=== PATIENT | female | born 1940 | race Caucasian/White ===

== ENCOUNTER 2019-07-09 14:26 | Inpatient (IN) | payer MEDICARE, OTHER ==
[~2019-07-09] VITALS: Ht 157.5 cm; Wt 67.7 kg
[2019-07-09] MEDS ORDERED: methylPREDNISolone SOD SUCC 125 MG/2 ML VIAL IV ONE (14:45)
[2019-07-09] MEDS ORDERED: IV NORMAL SALINE 500 ML BAG IV ONE (14:45)
--- NOTE | 2019-07-09 15:11 | NUR ---
Pt BIB [facility], reports that pt fell off a chair onto left shoulder. Pt c/o extreme left shoulder and upper arm pain, distal PMS intact. Although pt seems to have a mostly upward and left gaze (occasionally moves eyes) pt is A&Ox4. Pt having dyspnea, fingers and toes are cold so obtaining SPO2. Pt denies CP, dizziness, n/v, moderate distress noted.
--- NOTE | 2019-07-09 15:42 | NUR ---
Pt is hard stick aware.
[2019-07-09] MEDS ORDERED: HYDROCODONE/APAP 5-325MG TABLET PO ONE (16:00)
[2019-07-09] MEDS ORDERED: HYDROCODONE/APAP 5-325MG TABLET ONE (16:01)
[2019-07-09 16:05] LABS: ABG BASE EXCESS -3.4 mmol/L; ABG HCO3 22.8 mmol/L; ABG PCO2 45.3 mmHg (35.0-45.0); ABG PH 7.319 (7.350-7.450); ABG PO2 68.3 mmHg (75.0-100.0); ABG SITE RIGHT BRACHIAL; ABG TOTAL HEMOGLOBIN 12.4 G/dL (12.0-16.0); COHb 1.5 % (0.5-1.5); MetHb 0.1 % (0.0-1.5); O2Hb 89.8 % (94.0-97.0); VENT MODE Nasal Cannula
[2019-07-09] MEDS ORDERED: FENTANYL CITRATE 100 MCG/2 ML AMPUL IV ONE (16:15)
[2019-07-09] MEDS ORDERED: FENTANYL CITRATE 100 MCG/2 ML AMPUL ONE (16:29)
[2019-07-09] MEDS ORDERED: methylPREDNISolone SOD SUCC 125 MG/2 ML VIAL ONE (16:29)
--- NOTE | 2019-07-09 16:40 | NUR ---
PICC Nurse placed new midline IV in right upper arm. Osvaldo blood and sent to lab. Line patent. Continued IV infusion.
[2019-07-09 16:53] LABS: BASOPHILS % (AUTO) 0.1 % (0.0-2.0); HEMATOCRIT 34.9 % (31.2-41.9); HEMOGLOBIN 11.2 g/dL (10.9-14.3); LYMPHOCYTES # (AUTO) 0.5 K/uL (20.0-40.0); LYMPHOCYTES % (AUTO) 3.7 % (20.5-51.5); MEAN CORPUSCULAR HEMOGLOBIN 28.5 uug (24.7-32.8); MEAN CORPUSCULAR HGB CONC 32 g/dL (32.3-35.6); MEAN CORPUSCULAR VOLUME 88.6 fL (75.5-95.3); MONOCYTES # (AUTO) 0.8 K/uL (2.0-10.0); MONOCYTES % (AUTO) 5.1 % (0.0-11.0); NEUTROPHILS # (AUTO) 13.5 K/uL (1.8-8.9); NEUTROPHILS % (AUTO) 91.1 % (38.5-71.5); PLATELET COUNT (AUTO) 178 K/uL (179-408); RED BLOOD CELL COUNT(AUTO) 3.93 MIL/uL (3.63-4.92); WHITE BLOOD COUNT (AUTO) 14.9 K/uL (3.8-11.8)
[2019-07-09] MEDS ORDERED: CEFTRIAXONE 1 G in IV DEXTROSE 5% 50 ML IV ONE (17:15)
[2019-07-09 17:22] LABS: CARBON DIOXIDE 30 mmol/L (21-32); CHLORIDE 103 mmol/L (98-107); CREATININE 1.7 mg/dL (0.6-1.3); GLUCOSE 158 mg/dL (74-106); POTASSIUM 3.9 mmol/L (3.5-5.1); UREA NITROGEN, BLOOD 44 mg/dL (7-20)
[2019-07-09 17:23] LABS: ALANINE AMINOTRANSFERASE 24 U/L (14-59); ALKALINE PHOSPHATASE 95 U/L (50-136); ASPARTATE AMINOTRANSFERASE 38 U/L (15-37); BILIRUBIN,DIRECT 0.1 mg/dL (0.0-0.2); BILIRUBIN,TOTAL 0.3 mg/dL (0.1-1.0)
[2019-07-09] MEDS ORDERED: CEFTRIAXONE /D5W 50ML IVPB **ER PYXIS IV ONE ×2 (17:29→21:25)
[2019-07-09] MEDS ORDERED: ASPIRIN EC 325 MG TABLET.DR PO SCH (17:30)
--- NOTE | 2019-07-09 17:46 | NUR ---
DR. DIAZ TALKING TO ER MD OVER THE PHONE FOR CARDIOLOGY CONSULT.
--- NOTE | 2019-07-09 19:10 | NUR ---
PT FOR TRANSPORT TO [facility] RM 314 FR HOME BIB RESCUE HAND OFF AND SBAR GIVEN TO RN (CARA) DX L HUMERAL HEAD FX AND NSTEMI UNDER KERZUMA
[2019-07-09] MEDS ORDERED: IV 1/2NS 1000 ML 1,000 ML IV PRN (19:22)
[2019-07-09] MEDS: CEFTRIAXONE 1 G in IV DEXTROSE 5% 50 ML IV SCH ×2 (19:30→21:40)
[2019-07-09] MEDS ORDERED: MAGNESIUM HYDROXIDE 30 ML LIQUID UDC PO PRN (19:30)
--- NOTE | 2019-07-09 19:30 | NUR ---
[facility]. PATIENT ALERT AND AWAKE, ANXIOUS AND RESTLESS , REQUESTING TO GO OUT FOR SMOKING. EXPLAINED THE PATIENT THAT SMOKING IS NOT ALLOWED IN THE HOSPITAL . PATIENT USING O2 @ 3LPM WITH SAT 92% . BODY CHECK DONE. DISCOLORATION NOTED ON THE LEFT UPPER ARM . PICTURE TAKEN. KEPT THE PATIENT CLEAN AND COMFORTABLE. SAFETY MEASURES OBSERVED. WILL CONTINUE TO MONITOR
[2019-07-09 20:00] VITALS: BP 130/68
[2019-07-09] MEDS: QUETIAPINE FUMARATE 100 MG TABLET PO SCH (21:09)
[2019-07-09] MEDS: ATORVASTATIN 40 MG TABLET PO SCH (21:10)
[2019-07-09] MEDS: HYDROCODONE/APAP 5-325MG TABLET PO PRN (21:10)
--- NOTE | 2019-07-09 21:50 | NUR ---
ROCEPHIN WAS ORDERED FOR 1930 . IT WAS NOT ADMINISTERED IT WAS GIVEN AT ED. NOTIFIED
--- NOTE | 2019-07-09 22:00 | NUR ---
PATIENT SLEEPING INTERMITTENTLY NO DISCOMFORT NOTED AT THIS TIME . WILL CONTINUE TO MONITOR
[2019-07-09] MEDS: IV NS 1000 ML 1,000 ML IV PRN (23:56)
[2019-07-10] VITALS (17 sets, daily range): BP systolic 78–159; BP diastolic 37–105
[2019-07-10] MEDS: methylPREDNISolone SOD SUCC 40 MG/ML VIAL IV SCH ×4 (00:09→18:56)
[2019-07-10 06:47] LABS: CHLORIDE 107 mmol/L (98-107); GLUCOSE 138 mg/dL (74-106); MAGNESIUM 2.1 mg/dL (1.8-2.4); PHOSPHOROUS 4.6 mg/dL (2.5-4.9); POTASSIUM 4.3 mmol/L (3.5-5.1); UREA NITROGEN, BLOOD 43 mg/dL (7-18)
--- NOTE | 2019-07-10 07:07 | NUR ---
PATIENT INTERMITTENTLY SLEEPING. SR ON THE MONITOR . C/O PAIN ON MOVING . LEFT SHOULDER AREA HAS DISCOLORATION AND SWELLING. USING O2 @ 3LPM .GENTLE CARE PROVIDED. IV FLUID INFUSING ORDERED KEPT CLEAN AND DRY .
[2019-07-10 07:10] LABS: BASOPHILS # (AUTO) 0.1 K/uL (0.0-8.0); BASOPHILS % (AUTO) 0.4 % (0.0-2.0); HEMATOCRIT 28.6 % (31.2-41.9); HEMOGLOBIN 9.6 g/dL (10.9-14.3); LYMPHOCYTES # (AUTO) 0.5 K/uL (20.0-40.0); LYMPHOCYTES % (AUTO) 3.9 % (20.5-51.5); MEAN CORPUSCULAR HEMOGLOBIN 29.4 uug (24.7-32.8); MEAN CORPUSCULAR HGB CONC 33 g/dL (32.3-35.6); MONOCYTES # (AUTO) 0.2 K/uL (2.0-10.0); MONOCYTES % (AUTO) 1.7 % (0.0-11.0); NEUTROPHILS # (AUTO) 13.2 K/uL (1.8-8.9); PLATELET COUNT (AUTO) 138 K/uL (179-408); RED BLOOD CELL COUNT(AUTO) 3.26 MIL/uL (3.63-4.92)
--- NOTE | 2019-07-10 07:10 | NUR ---
received patient from night patrol inspector very lethargic with on and off restlessness, very confused, moaning. sr on monitor. o2 sat at 72-82 on 2L nc. placed on 4L but o2 sat remains low. Dr Valverde in with orders see notes
[2019-07-10 08:07] LABS: CARBON DIOXIDE 24 mmol/L (21-32)
[2019-07-10 08:49] LABS: ABG BASE EXCESS -3.5 mmol/L; ABG HCO3 23.6 mmol/L; ABG PCO2 52.8 mmHg (35.0-45.0); ABG PH 7.269 (7.350-7.450); ABG PO2 100.9 mmHg (75.0-100.0); ABG SITE LEFT RADIAL; ABG TOTAL HEMOGLOBIN 9.9 G/dL (12.0-16.0); COHb 1.2 % (0.5-1.5); MetHb 0.3 % (0.0-1.5); O2Hb 95.2 % (94.0-97.0)
[2019-07-10] MEDS: DULOXETINE 30 MG CAPSULE.DR PO SCH (09:00)
[2019-07-10] MEDS ORDERED: METOPROLOL SUCCINATE XL 50 MG TAB.SR.24H PO SCH (09:00)
[2019-07-10] MEDS: VENLAFAXINE 25 MG TABLET PO SCH (09:00)
[2019-07-10] MEDS ORDERED: AMLODIPINE 10 MG TABLET PO SCH (09:00)
[2019-07-10] MEDS: DIVALPROEX 250 MG TABLET.DR PO SCH ×2 (09:00→18:55)
[2019-07-10] MEDS ORDERED: PANTOPRAZOLE SODIUM 40 MG TABLET.DR PO SCH (09:00)
[2019-07-10] MEDS: CLOPIDOGREL 75 MG TABLET PO SCH (09:00)
[2019-07-10 09:02] LABS: THYROID STIMULATING HORMONE 0.685 mIU/mL (0.358-3.740)
[2019-07-10 09:15] LABS: CHOLESTEROL 130 mg/dL (<200); CREATININE 1.8 mg/dL (0.6-1.3); HDL CHOLESTEROL 45 mg/dL (40-60); TRIGLYCERIDES 80 MG/DL (30-150)
--- NOTE | 2019-07-10 09:30 | NUR ---
SEEN BY DR HAYS AND SAID TO TRANSFER PATIENT TO CCU FOR FURTHER RESPIRATORY MANAGEMENT
[2019-07-10] MEDS: PANTOPRAZOLE SODIUM 40 MG VIAL IV SCH (09:44)
--- NOTE | 2019-07-10 09:47 | NUR ---
po meds for 0900 not given patient too lethargic. dr holland aware
[2019-07-10] MEDS: IV NS 1000 ML 1,000 ML IV PRN ×2 (09:52→19:40)
[2019-07-10] MEDS ORDERED: ASPIRIN EC 81 MG TABLET.DR PO SCH (10:00)
--- NOTE | 2019-07-10 10:15 | NUR ---
transferred to icu for higher level of care. report given to ccu staff
--- NOTE | 2019-07-10 10:15 | NUR ---
RECIEVED PT FROM 3RD FLOOR VIA BED, TRANSFERRED TO ICU FOR LOW SATURATION AND HYPOTENSIN. PT ON 6L MASK, AWAKE AND ORIENTED TO NAME AND PLACE BUT FORGETFUL. O2SAT IS 97% NO APPARENT C/O SOB. HR IS SR. AFEBRILE. PT HAS A BIG BRUISE ON HER LEFT UPPER ARM FROM THE PREVIOUS FALL AT THE [facility] WHERE SHE LIVES. PT GRIMACES WITH SLIGHT MOVEMENT OF THE LEFT ARM. APPLIED THE ARM SLING FOR IMMOBILIZATION OF THE AFFECTED INJURY.
--- NOTE | 2019-07-10 10:40 | NUR ---
[facility] STAFF ETHAN NOTIFIED OF PATIENT TRANSFER TO CCU. AWAITING DR SINGH FOR ORTHO CONSULT
[2019-07-10] MEDS: HYDROCODONE/APAP 5-325MG TABLET PO PRN ×2 (11:30→20:17)
[2019-07-10] MEDS: ALBUTEROL SULFATE 2.5 MG/ 0.5 ML NEBU NEB SCH ×5 (11:30→23:04)
--- NOTE | 2019-07-10 11:30 | NUR ---
MAIN IVF IS NS INFUSING AT 100ML/HR VIA THE MIDLINE DONNA. PT IS INCONTINENT OF URINE AND IS ON DIAPER. SKIN IS INTACT. NO SKIN BREAKDOWN ON HER COCCYX AREA.
[2019-07-10] MEDS: IPRATROPIUM BROMIDE 0.5 MG/2.5 ML NEBU NEB SCH ×4 (12:02→23:04)
[2019-07-10] MEDS ORDERED: NOREPINEPHRINE BITARTRATE 16 MG in IV DEXTROSE 5% 500 ML IV PRN (14:45)
--- NOTE | 2019-07-10 15:30 | NUR ---
PT'S BP PERSISTENTLY LOWE 80'S. PT IS TALKING ASD AYMPTOMATIC. NOTIFIED DR QUISPE AND ORDERED LEVOPHED DRIP DOUBLE CONCENTRATION TO KEEP SBP ABOVE 90.
[2019-07-10] MEDS: QUETIAPINE FUMARATE 100 MG TABLET PO SCH (19:58)
[2019-07-10] MEDS: ATORVASTATIN 40 MG TABLET PO SCH (20:01)
[2019-07-10] MEDS: ZOLPIDEM 5 MG TABLET PO PRN (20:18)
[2019-07-10] MEDS ORDERED: CEFTRIAXONE 1 G in IV DEXTROSE 5% 50 ML IV SCH (21:00)
[2019-07-11] VITALS (92 sets, daily range): BP systolic 68–140; BP diastolic 41–100
[2019-07-11] MEDS: methylPREDNISolone SOD SUCC 40 MG/ML VIAL IV SCH ×3 (00:13→17:36)
[2019-07-11] MEDS: ALBUTEROL SULFATE 2.5 MG/ 0.5 ML NEBU NEB SCH ×6 (02:19→22:40)
[2019-07-11] MEDS: IPRATROPIUM BROMIDE 0.5 MG/2.5 ML NEBU NEB SCH ×6 (02:19→22:40)
[2019-07-11] MEDS: IV NS 1000 ML 1,000 ML IV PRN ×2 (05:20→15:38)
[2019-07-11 05:57] LABS: HEMATOCRIT 29.9 % (31.2-41.9); HEMOGLOBIN 9.7 g/dL (10.9-14.3); LYMPHOCYTES # (AUTO) 0.3 K/uL (20.0-40.0); LYMPHOCYTES % (AUTO) 1.6 % (20.5-51.5); MEAN CORPUSCULAR HGB CONC 33 g/dL (32.3-35.6); MEAN CORPUSCULAR VOLUME 89.1 fL (75.5-95.3); MONOCYTES # (AUTO) 0.6 K/uL (2.0-10.0); MONOCYTES % (AUTO) 2.9 % (0.0-11.0); NEUTROPHILS % (AUTO) 95.5 % (38.5-71.5); PLATELET COUNT (AUTO) 176 K/uL (179-408); RED BLOOD CELL COUNT(AUTO) 3.35 MIL/uL (3.63-4.92); WHITE BLOOD COUNT (AUTO) 19.9 K/uL (3.8-11.8)
[2019-07-11 06:13] LABS: CREATININE 1.3 mg/dL (0.6-1.3); MAGNESIUM 2.1 mg/dL (1.8-2.4); PHOSPHOROUS 2.6 mg/dL (2.5-4.9); POTASSIUM 3.6 mmol/L (3.5-5.1)
[2019-07-11] MEDS: LORAZEPAM 2 MG/1 ML VIAL IV PRN ×2 (08:00→14:16)
[2019-07-11 08:52] LABS: ABG BASE EXCESS -4.5 mmol/L; ABG HCO3 19.9 mmol/L; ABG PCO2 33.7 mmHg (35.0-45.0); ABG PH 7.388 (7.350-7.450); ABG PO2 57.6 mmHg (75.0-100.0); ABG SITE RIGHT RADIAL; ABG TOTAL HEMOGLOBIN 10.2 G/dL (12.0-16.0); MetHb 0.3 % (0.0-1.5); O2Hb 87.3 % (94.0-97.0); VENT MODE Nasal Cannula
[2019-07-11] MEDS: PANTOPRAZOLE SODIUM 40 MG VIAL IV SCH (09:14)
[2019-07-11] MEDS: CLOPIDOGREL 75 MG TABLET PO SCH (09:14)
[2019-07-11] MEDS: VENLAFAXINE 25 MG TABLET PO SCH (09:14)
[2019-07-11] MEDS: DIVALPROEX 250 MG TABLET.DR PO SCH ×2 (09:14→17:06)
[2019-07-11] MEDS: DULOXETINE 30 MG CAPSULE.DR PO SCH (09:14)
--- NOTE | 2019-07-11 10:00 | NUR ---
DR HAYS IN THE UNIT, FULL REPORT GIVEN, PATIENT ASSESSED WITH NO NEW ORDERS RECEIVED.
--- NOTE | 2019-07-11 11:19 | NUR ---
DR TOMPKINS IN THE UNIT, FULL REPORT GIVEN NO NEW ORDERS GIVEN.
--- NOTE | 2019-07-11 12:30 | NUR ---
ID services, N.P in the unit to see and examine patient.
[2019-07-11] MEDS ORDERED: MEROPENEM 1 G in IV NORMAL SALINE 100 ML IV SCH (15:45)
[2019-07-11 16:05] LABS: *BILIRUBIN,URIN NEGATIVE (NEGATIVE); *BLOOD, URINE 1+ (NEGATIVE); *CLARITY,URINE CLEAR (CLEAR); *COLOR,URINE YELLOW (YELLOW); *KETONES,URINE NEGATIVE (NEGATIVE); *UROBILINOGEN,URINE 0.2 E.U./dl (NORMAL); LEUKOCYTE ESTERASE ,URINE NEGATIVE (NEGATIVE); NITRITE, URINE NEGATIVE (NEGATIVE); PH,URINE 6.5 (5.0-8.0); UGLUCOSE TRACE (NEGATIVE)
[2019-07-11 16:24] LABS: BACTERIA,URINE NONE SEEN /HPF (NONE SEEN); SQUAMOUS EPITHELIAL CELL,UR FEW /HPF (NONE SEEN)
[2019-07-11 16:29] LABS: *CREATININE,URINE 20.9 mg/dL (30-125)
[2019-07-11 16:46] LABS: *URINE TOTAL PROTEIN RANDOM < 6.0 mg/dL (<150/24HR)
--- NOTE | 2019-07-11 16:58 | NUR ---
CLINICAL PHARMACY NOTE: VANCOMYCIN PHARMACY TO DOSE Subjective: To start vancomycin tin this 78 y/o female for per ID recommendation (pt with fevers, increased wbc) Objective: weight 69kg height 157cm BUN/SCr 36/1.3 wbc 19.9 temp 100.9 Assessment/Plan Although renal function is improving, may not be stable yet, therefore will dose by level for now. 1gm x1 vanco giventoday at 1730. Next random pending tomorrow with am labs. Will check when available and re-dose as needed. Will also consider regimen if renal function stable. Will follow
[2019-07-11] MEDS ORDERED: VANCOMYCIN IV 1,000 MG in IV DEXTROSE 5% 250 ML IV ONE (17:30)
[2019-07-11] MEDS: MEROPENEM 1 G in IV NORMAL SALINE 100 ML IV SCH (17:31)
--- NOTE | 2019-07-11 20:00 | NUR ---
Report received. Patient sleeping, easily arouses to name or voice but easily gets agitated. Hitting nurse with R hand; mittens on for safety. Oriented to name only, confused. O2 by mask sat above 94%. On Levophed drip via DONNA midline. Assessment done; see flow sheet for complete data. Addendum: 07/12/19 at 0049 by KATHERINE CLAROS RN Amended: Links added. Addendum: 07/12/19 at 0053 by KATHERINE CLAROS RN Amended: Links added. Addendum: 07/12/19 at 0053 by KATHERINE CLAROS RN Amended: Links added. Addendum: 07/12/19 at 0053 by KATHERINE CLAROS RN Amended: Links added. Addendum: 07/12/19 at 0054 by KATHERINE CLAROS RN Amended: Links added.
[2019-07-11] MEDS: QUETIAPINE FUMARATE 100 MG TABLET PO SCH (20:40)
[2019-07-11] MEDS: ATORVASTATIN 40 MG TABLET PO SCH (20:40)
--- NOTE | 2019-07-11 20:45 | NUR ---
PO meds given with lots of distractions and convincing. Patient uncooperative. Refused dinner. C/o pain; medicated. Took meds without swallowing difficulty. Addendum: 07/12/19 at 0053 by KATHERINE CLAROS RN Amended: Links added. Addendum: 07/12/19 at 0053 by KATHERINE CLAROS RN Amended: Links added. Addendum: 07/12/19 at 0053 by KATHERINE TAECHARATKIJ RN Amended: Links added. Addendum: 07/12/19 at 0054 by KATHERINE CLAROS RN Amended: Links added.
[2019-07-11] MEDS: HYDROCODONE/APAP 5-325MG TABLET PO PRN (20:59)
--- NOTE | 2019-07-11 21:00 | NUR ---
Kody from [facility] called inquiring about patient's condition. Advised appropriately. Levophed drip titrated; see IV spread sheet for rates/dosages. Addendum: 07/12/19 at 0055 by KATHERINE CLAROS RN Amended: Links added. Addendum: 07/12/19 at 0057 by KATHERINE CLAROS RN Amended: Links added.
--- NOTE | 2019-07-11 23:00 | NUR ---
O2 changed to NC by RT; will monitor closely. Addendum: 07/12/19 at 0057 by KATHREINE CLAROS RN Amended: Links added.
[2019-07-12] VITALS (48 sets, daily range): BP systolic 73–138; BP diastolic 37–98
[2019-07-12] MEDS: IPRATROPIUM BROMIDE 0.5 MG/2.5 ML NEBU NEB SCH ×6 (02:35→23:10)
[2019-07-12] MEDS: ALBUTEROL SULFATE 2.5 MG/ 0.5 ML NEBU NEB SCH ×6 (02:35→23:10)
[2019-07-12] MEDS: IV NS 1000 ML 1,000 ML IV PRN ×2 (02:50→15:07)
--- NOTE | 2019-07-12 04:00 | NUR ---
Slept fairly well; easily arouses to stimulation. Am care rendered. Patient still gets combative during care. Remains on Levophed drip at 3 mcg/min. BPs labile. Monitored closely. Addendum: 07/12/19 at 0501 by KATHERINE CLAROS RN Amended: Links added.
[2019-07-12] MEDS: MEROPENEM 1 G in IV NORMAL SALINE 100 ML IV SCH ×3 (05:46→21:40)
[2019-07-12] MEDS: methylPREDNISolone SOD SUCC 40 MG/ML VIAL IV SCH ×2 (05:46→17:04)
[2019-07-12 06:02] LABS: BASOPHILS % (AUTO) 0.1 % (0.0-2.0); HEMATOCRIT 30.9 % (31.2-41.9); HEMOGLOBIN 10.1 g/dL (10.9-14.3); LYMPHOCYTES # (AUTO) 0.5 K/uL (20.0-40.0); LYMPHOCYTES % (AUTO) 2.5 % (20.5-51.5); MEAN CORPUSCULAR HEMOGLOBIN 28.7 uug (24.7-32.8); MEAN CORPUSCULAR HGB CONC 33 g/dL (32.3-35.6); MEAN CORPUSCULAR VOLUME 87.9 fL (75.5-95.3); MONOCYTES # (AUTO) 1.1 K/uL (2.0-10.0); MONOCYTES % (AUTO) 5.9 % (0.0-11.0); NEUTROPHILS # (AUTO) 16.9 K/uL (1.8-8.9); NEUTROPHILS % (AUTO) 91.5 % (38.5-71.5); PLATELET COUNT (AUTO) 192 K/uL (179-408); RED BLOOD CELL COUNT(AUTO) 3.51 MIL/uL (3.63-4.92); WHITE BLOOD COUNT (AUTO) 18.5 K/uL (3.8-11.8)
--- NOTE | 2019-07-12 06:38 | NUR ---
Diuresed over 2000ml during the shift. Still on Levophed drip @ 1 mcg/min. No neuro changes. Addendum: 07/12/19 at 0638 by KATHERINE CLAROS RN Amended: Links added.
[2019-07-12 06:42] LABS: BILIRUBIN,TOTAL 0.3 mg/dL (0.2-1.0); CREATININE 0.8 mg/dL (0.6-1.3); PHOSPHOROUS 2.3 mg/dL (2.5-4.9); POTASSIUM 3.3 mmol/L (3.5-5.1); TOTAL PROTEIN, SERUM 6.8 g/dL (6.4-8.2); VANCOMYCIN,RANDOM 9.7 ug/mL (18.0-26.0)
[2019-07-12] MEDS: PANTOPRAZOLE SODIUM 40 MG TABLET.DR PO SCH (07:41)
[2019-07-12] MEDS: DIVALPROEX 250 MG TABLET.DR PO SCH ×2 (08:02→17:04)
[2019-07-12] MEDS: CLOPIDOGREL 75 MG TABLET PO SCH (08:02)
[2019-07-12] MEDS: DULOXETINE 30 MG CAPSULE.DR PO SCH (08:02)
[2019-07-12] MEDS: VENLAFAXINE 25 MG TABLET PO SCH (08:03)
[2019-07-12] MEDS: VANCOMYCIN IV 1,000 MG in IV DEXTROSE 5% 250 ML IV SCH (08:04)
[2019-07-12 08:15] LABS: ABG BASE EXCESS 3.2 mmol/L; ABG HCO3 27.4 mmol/L; ABG PCO2 40.3 mmHg (35.0-45.0); ABG PO2 59.8 mmHg (75.0-100.0); ABG SITE RIGHT RADIAL; ABG TOTAL HEMOGLOBIN 10.7 G/dL (12.0-16.0); COHb 0.9 % (0.5-1.5); MetHb 0.2 % (0.0-1.5); O2Hb 89.4 % (94.0-97.0); VENT MODE Nasal Cannula
--- NOTE | 2019-07-12 09:14 | NUR ---
PULMONARY SERVICES DR. HAYS IN THE UNIT. FULL REPORT GIVEN SEE ORDER HISTORY. DR AT BEDSIDE WITH PATIENT, AND RELATIVES DISCUSSING PLAN OF CARE. A FOLLOW UP CALL TO LAB FOR AN UPDATE ON SENT OUT CYTOLOGY SPECIMEN FROM YESTERDAY. Addendum: 07/12/19 at 1112 by LE ALBRECHT RN THE ABOVE NOTE WAS INTENDED FOR A DIFFERENT PATIENT, USER ERROR.
[2019-07-12] MEDS ORDERED: MAGNESIUM OXIDE 400 MG TABLET PO ONE (09:15)
--- NOTE | 2019-07-12 09:30 | NUR ---
Pulmonary services, Dr. Phillips in the unit to see and examine patient, full report given see order hx. Orders to continue with care plan received.
--- NOTE | 2019-07-12 09:34 | NUR ---
CLINICAL PHARMACY NOTE: VANCOMYCIN PHARMACY TO DOSE Subjective: To continue vancomycin tin this 78 y/o female for per ID recommendation (sepsis, bacteremia, uti, asp pna) Objective: weight 69kg height 157cm BUN/SCr 17/0.8 wbc 18.5 temp 97.8 Assessment/Plan Since renal function improved, will start vanco 1gm IVPB q25h for predicted vanco trough level of 16 mcg/ml at steady state. 1st dose today at 0900. Plan to order vanco trough level before 4th dose (not yet ordered). Will monitor renal function & adjust the dose if needed. Will follow
[2019-07-12] MEDS ORDERED: POTASSIUM CHLORIDE 20 MEQ TAB.PRT.SR PO ONE (10:30)
--- NOTE | 2019-07-12 11:00 | NUR ---
Attending Madelyn Pickard, in the unit to see and examine patient report given.
--- NOTE | 2019-07-12 13:13 | NUR ---
ID SERVICES LINING FOLDER JUDEEN IN THE UNIT. LINING FOLDER AT BEDSIDE DISCUSSING PLAN OF CARE WITH PATIENT. NO NEW ORDERS RECEIVED.
[2019-07-12] MEDS: HYDROCODONE/APAP 5-325MG TABLET PO PRN ×2 (14:43→20:19)
[2019-07-12] MEDS ORDERED: NEUTRA PHOS PACKET PO ONE (17:30)
--- NOTE | 2019-07-12 19:31 | NUR ---
Pt awake. No s/s of respiratory distress noted. Pt refused HHN tx. ALNIE Mckeon notified.
[2019-07-12] MEDS: QUETIAPINE FUMARATE 100 MG TABLET PO SCH (20:15)
[2019-07-12] MEDS: ATORVASTATIN 40 MG TABLET PO SCH (20:15)
[2019-07-12] MEDS: ZOLPIDEM 5 MG TABLET PO PRN (20:20)
--- NOTE | 2019-07-12 23:10 | NUR ---
No s/s of respiratory distress noted. Pt refused HHN tx. LANIE Mckeon notified.
[2019-07-13] VITALS (16 sets, daily range): BP systolic 91–134; BP diastolic 54–84
[2019-07-13] MEDS: IV NS 1000 ML 1,000 ML IV PRN (00:37)
[2019-07-13] MEDS: IPRATROPIUM BROMIDE 0.5 MG/2.5 ML NEBU NEB SCH ×6 (03:30→22:30)
[2019-07-13] MEDS: ALBUTEROL SULFATE 2.5 MG/ 0.5 ML NEBU NEB SCH ×6 (03:30→22:30)
--- NOTE | 2019-07-13 03:31 | NUR ---
Pt asleep. No SOB noted. HHN tx not given. LANIE Mckeon notified.
[2019-07-13 05:29] LABS: BASOPHILS % (AUTO) 0.1 % (0.0-2.0); HEMATOCRIT 27.1 % (31.2-41.9); LYMPHOCYTES # (AUTO) 0.7 K/uL (20.0-40.0); LYMPHOCYTES % (AUTO) 5.4 % (20.5-51.5); MEAN CORPUSCULAR HEMOGLOBIN 29.2 uug (24.7-32.8); MEAN CORPUSCULAR HGB CONC 33 g/dL (32.3-35.6); MEAN CORPUSCULAR VOLUME 88.4 fL (75.5-95.3); MONOCYTES # (AUTO) 0.7 K/uL (2.0-10.0); MONOCYTES % (AUTO) 5.5 % (0.0-11.0); NEUTROPHILS # (AUTO) 11.3 K/uL (1.8-8.9); PLATELET COUNT (AUTO) 188 K/uL (179-408); RED BLOOD CELL COUNT(AUTO) 3.06 MIL/uL (3.63-4.92); WHITE BLOOD COUNT (AUTO) 12.6 K/uL (3.8-11.8)
[2019-07-13] MEDS: MEROPENEM 1 G in IV NORMAL SALINE 100 ML IV SCH ×3 (05:32→22:27)
[2019-07-13] MEDS: methylPREDNISolone SOD SUCC 40 MG/ML VIAL IV SCH ×2 (05:33→17:54)
[2019-07-13 05:49] LABS: CREATININE 0.8 mg/dL (0.6-1.3); MAGNESIUM 1.8 mg/dL (1.8-2.4); PHOSPHOROUS 2.8 mg/dL (2.5-4.9); POTASSIUM 3.5 mmol/L (3.5-5.1)
[2019-07-13] MEDS: PANTOPRAZOLE SODIUM 40 MG TABLET.DR PO SCH (06:45)
--- NOTE | 2019-07-13 07:30 | NUR ---
RECIEVED PT VERY SOUND ASLEEP, AROUSABLE TO CALL. SKIN IS WARM AND DRY TO TOUCH. HAS LEFT SHOULDER AND ARMS STRING IN PLACE. C.O PAIN WITH MOVEMENT, GOOD RADIAL PULSE. AFEBRILE. HR IS SR-ST, NO ECTOPY. MAIN IVF IS DISCONTINUED, MIDLINE SITE IS CLEAN DRY AND INTACT.
[2019-07-13] MEDS: DULOXETINE 30 MG CAPSULE.DR PO SCH (08:02)
[2019-07-13] MEDS: VENLAFAXINE 25 MG TABLET PO SCH (08:03)
[2019-07-13] MEDS: CLOPIDOGREL 75 MG TABLET PO SCH (08:03)
[2019-07-13] MEDS: DIVALPROEX 250 MG TABLET.DR PO SCH ×2 (08:03→17:53)
--- NOTE | 2019-07-13 09:21 | NUR ---
CLINICAL PHARMACY NOTE: VANCOMYCIN PHARMACY TO DOSE Subjective: To continue vancomycin tin this 78 y/o female for per ID recommendation (sepsis, bacteremia, uti, asp pna) Objective: weight 69kg height 157cm BUN/SCr 19/0.8 wbc 12.6 temp 97.3 Vanco random level on 07/12 with am labs: 9.7 (post vanco 1gm IV x1 on 07/11 at 1730) Assessment/Plan Will continue same dose of vanco 1gm IVPB q25h for predicted vanco trough level of 16 mcg/ml at steady state. 2nd dose today at 1000. Plan to order vanco trough level before 4th dose (not yet ordered). Will monitor renal function & adjust the dose if needed. Will follow
--- NOTE | 2019-07-13 09:30 | NUR ---
PT ATE GOOD BREAKFAST, REFUSED TO BE ASSISTED. OFF VASOPRESSOR.
[2019-07-13 11:16] LABS: A/G RATIO 0.8 (0.7-1.7); ALBUMIN 2.9 g/dL (2.9-4.4); ALPHA-1-GLOBULIN 0.4 g/dL (0.0-0.4); BETA GLOBULIN 0.9 g/dL (0.7-1.3); GAMMA GLOBULIN 1.1 g/dL (0.4-1.8); GLOBULIN, TOTAL 3.5 g/dL (2.2-3.9); M-SPIKE Not Observed g/dL (Not Observed)
[2019-07-13] MEDS: VANCOMYCIN IV 1,000 MG in IV DEXTROSE 5% 250 ML IV SCH (11:21)
--- NOTE | 2019-07-13 13:30 | NUR ---
SEEN AND EXAMINED BY EVELIO OLIVAS WITH NEW ORDER. DOWNGRADED TELE.
[2019-07-13] MEDS: HYDROCODONE/APAP 5-325MG TABLET PO PRN ×2 (15:08→20:41)
--- NOTE | 2019-07-13 18:30 | NUR ---
SEEN AND EXAMINED BY DR ESCAMILLA. NO NEW ORDER.
[2019-07-13] MEDS: QUETIAPINE FUMARATE 100 MG TABLET PO SCH (20:39)
[2019-07-13] MEDS: ZOLPIDEM 5 MG TABLET PO PRN (20:40)
[2019-07-13] MEDS: ATORVASTATIN 40 MG TABLET PO SCH (20:40)
[2019-07-14] VITALS (7 sets, daily range): BP systolic 95–160; BP diastolic 59–90
[2019-07-14] MEDS: ALBUTEROL SULFATE 2.5 MG/ 0.5 ML NEBU NEB SCH ×6 (02:39→23:09)
[2019-07-14] MEDS: IPRATROPIUM BROMIDE 0.5 MG/2.5 ML NEBU NEB SCH ×7 (02:39→23:09)
[2019-07-14] MEDS: HYDROCODONE/APAP 5-325MG TABLET PO PRN ×3 (04:25→20:58)
--- NOTE | 2019-07-14 05:00 | NUR ---
Refused morning lab draw & AM cares.
[2019-07-14] MEDS: MEROPENEM 1 G in IV NORMAL SALINE 100 ML IV SCH ×3 (05:03→21:37)
[2019-07-14] MEDS: methylPREDNISolone SOD SUCC 40 MG/ML VIAL IV SCH ×2 (05:05→17:26)
--- NOTE | 2019-07-14 07:40 | NUR ---
RECEIVED PATIENT IN BED, ASLEEP, EASY TO AWAKE, AOX4. STATED PAIN IN LT. ARM WITH MOVEMENT. REFUSED PAIN MEDICATION AT THIS TIME. LT. ARM IN SLING, PULSES PALPABLE, ABLE TO MOVE FINGERS. RT. UPPER ARM MIDLINE IN PLACE FLUSHED AND TKO. PATIENT HAS TELEMETRY AND IS NSR ON MONITOR. SAFETY AND FALL PREVENTION IN PLACE. CALL LIGHT IN REACH. BED IN LOW AND LOCKED POSITION. ALL NEEDS MET AT THIS TIME. WILL CONTINUE TO MONITOR.
[2019-07-14] MEDS: PANTOPRAZOLE SODIUM 40 MG TABLET.DR PO SCH (07:57)
[2019-07-14] MEDS: VENLAFAXINE 25 MG TABLET PO SCH (08:00)
[2019-07-14] MEDS: CLOPIDOGREL 75 MG TABLET PO SCH (08:00)
[2019-07-14] MEDS: DULOXETINE 30 MG CAPSULE.DR PO SCH (08:00)
[2019-07-14] MEDS: DIVALPROEX 250 MG TABLET.DR PO SCH ×4 (08:02→17:26)
--- NOTE | 2019-07-14 10:00 | NUR ---
1000 am dose of depakote not given. depakote given at 0800
[2019-07-14] MEDS: VANCOMYCIN IV 1,000 MG in IV DEXTROSE 5% 250 ML IV SCH (11:39)
--- NOTE | 2019-07-14 11:41 | NUR ---
CLINICAL PHARMACY NOTE: VANCOMYCIN PHARMACY TO DOSE Subjective: To continue vancomycin tin this 78 y/o female for per ID recommendation (sepsis, bacteremia, uti, asp pna) Objective: weight 69kg height 157cm BUN/SCr 19/0.8(07/13) wbc 12.6(07/13) temp 98.9 Assessment/Plan Will continue same dose of vanco 1gm IVPB q25h for predicted vanco trough level of 16 mcg/ml at steady state. 3rd dose today at 1000. Plan to order vanco trough level before 4th dose (ordered for tomorrow at 1130). Will follow the level for further dosing.
--- NOTE | 2019-07-14 17:38 | NUR ---
PATIENT IN BED, AWAKE, AOX4. STATED PAIN IN LT. ARM WITH MOVEMENT. PAIN MEDICATION GIVEN ORDERED. LT. ARM IN SLING, PULSES PALPABLE, ABLE TO MOVE FINGERS. RT. UPPER ARM MIDLINE IN PLACE FLUSHED AND TKO. PATIENT HAS TELEMETRY AND IS NSR ON MONITOR THROUGHOUT THE SHIFT. SAFETY AND FALL PREVENTION IN PLACE. CALL LIGHT IN REACH. BED IN LOW AND LOCKED POSITION. ALL NEEDS MET. WILL REPORT TO ONCOMING NURSE.
[2019-07-14] MEDS: QUETIAPINE FUMARATE 100 MG TABLET PO SCH (20:57)
[2019-07-14] MEDS: ATORVASTATIN 40 MG TABLET PO SCH (20:57)
--- NOTE | 2019-07-14 22:00 | NUR ---
As per RN airplane flight attendant supervisor, patient's sx for rob is cancelled becaused the anesthesiologist is not comfortable yet in doing the procedure d/t patient's condition. Sx will probably be done on Thursday. Called daughter twice but no answer, also no voicemail. Tiarra DREDGE PIPE OPERATOR made aware. Diet resumed. Patient made aware
[2019-07-14] MEDS: ZOLPIDEM 5 MG TABLET PO PRN (23:07)
[2019-07-15] VITALS: BP 139/70
[2019-07-15] MEDS: ALBUTEROL SULFATE 2.5 MG/ 0.5 ML NEBU NEB SCH ×6 (03:30→23:30)
[2019-07-15] MEDS: IPRATROPIUM BROMIDE 0.5 MG/2.5 ML NEBU NEB SCH ×6 (03:30→23:30)
[2019-07-15 04:00] VITALS: BP 157/71
[2019-07-15] MEDS: MEROPENEM 1 G in IV NORMAL SALINE 100 ML IV SCH ×3 (05:25→21:12)
[2019-07-15] MEDS: methylPREDNISolone SOD SUCC 40 MG/ML VIAL IV SCH (05:26)
[2019-07-15] MEDS: PANTOPRAZOLE SODIUM 40 MG TABLET.DR PO SCH (06:32)
--- NOTE | 2019-07-15 06:58 | NUR ---
Patient refused blood draw, patient stated "Leave me alone!" Lab will try again later. Charge nurse made aware Addendum: 07/15/19 at 0707 by RAQUEL PELLETIER RN Patient also refused her Protonix, risks and benefits explained Addendum: 07/15/19 at 0720 by RAQUEL PELLETIER RN Patient also refused her breathing tx
[2019-07-15] MEDS: DULOXETINE 30 MG CAPSULE.DR PO SCH (09:00)
--- NOTE | 2019-07-15 09:00 | NUR ---
Received patient asleep in bed; irritable when woken up and approached. Refused blood draw x1 on my shift. AAOx2-3; forgetful. Safety measures implemented. Call light within reach. Will continue to monitor.
[2019-07-15] MEDS: HYDROCODONE/APAP 5-325MG TABLET PO PRN ×3 (10:12→20:34)
[2019-07-15] MEDS: DIVALPROEX 250 MG TABLET.DR PO SCH ×3 (10:12→17:49)
[2019-07-15] MEDS: ACETAMINOPHEN 325 MG TABLET PO PRN (11:25)
[2019-07-15 11:36] VITALS: BP 119/74
[2019-07-15 15:11] VITALS: BP 108/69
[2019-07-15] MEDS ORDERED: MORPHINE SULFATE 2 MG/1 ML DISP.SYRIN IV ONE (17:00)
--- NOTE | 2019-07-15 17:52 | NUR ---
Patient complaint of left shoulder/arm, thigh/leg pain throughout shift. Medicated appropriately with prescribed [place] PO x2 and Morphine IV x1. No complaints at this time. Patient repositioned as needed for comfort. All needs attended. Will endorse care accordingly.
[2019-07-15] MEDS: ATORVASTATIN 40 MG TABLET PO SCH (20:01)
[2019-07-15] MEDS: QUETIAPINE FUMARATE 100 MG TABLET PO SCH (20:02)
[2019-07-15 21:33] VITALS: BP 149/83
[2019-07-15] MEDS: ZOLPIDEM 5 MG TABLET PO PRN (21:40)
[2019-07-16 01:08] VITALS: BP 107/51
[2019-07-16] MEDS: ALBUTEROL SULFATE 2.5 MG/ 0.5 ML NEBU NEB SCH ×6 (03:30→23:30)
[2019-07-16] MEDS: IPRATROPIUM BROMIDE 0.5 MG/2.5 ML NEBU NEB SCH ×6 (03:30→23:30)
[2019-07-16 05:50] VITALS: BP 106/61
[2019-07-16] MEDS: MEROPENEM 1 G in IV NORMAL SALINE 100 ML IV SCH ×3 (05:55→21:42)
[2019-07-16] MEDS: PANTOPRAZOLE SODIUM 40 MG TABLET.DR PO SCH (06:27)
--- NOTE | 2019-07-16 06:35 | NUR ---
Patient refused again her blood draw, breathing tx and Protonix this AM, risks and benefits explained
--- NOTE | 2019-07-16 08:07 | NUR ---
RECEIVED IN BED ASLEEP WITH EYES CLOSED NO S/S OF PAIN OR DISCOMFORTS AT THIS TIME LEFT ARM WITH SLING WITH ADEQUATE CIRCULATION AT THIS TIME CALL LIGHTS AND PERSONAL BELONGINGS ARE WITHIN EASY REACH MADE COMFORTABLE AND WILL CONTINUE TO OBSERVE.
[2019-07-16] MEDS ORDERED: methylPREDNISolone SOD SUCC 40 MG/ML VIAL IV SCH (09:00)
[2019-07-16] MEDS: DULOXETINE 30 MG CAPSULE.DR PO SCH (09:00)
[2019-07-16] MEDS: DIVALPROEX 250 MG TABLET.DR PO SCH ×3 (09:00→16:10)
--- NOTE | 2019-07-16 09:32 | NUR ---
PATIENT IS REFUSING ALL HER MEDICATIONS HAD TO CONVINCE HER TO TAKE HER DUE IV BHAVANA MCCAULEYJERICHO ALSO REFUSED TO EAT HER BREAKFAST WILL CONTINUE TO OBSERVE.
[2019-07-16] MEDS: HYDROCODONE/APAP 5-325MG TABLET PO PRN ×3 (10:38→20:25)
[2019-07-16 11:26] VITALS: BP 132/98
--- NOTE | 2019-07-16 12:08 | NUR ---
PATIENT SEEN EXAMINED BY DR HAYS WITH NEW ORDERS AND NOTED.PATIENT CONTINUES TO REFUSE TO BE TOUCHED AND TAKE DUE MEDICATIONS BUT DID ASK FOR PAIN MEDICATIONS GIVEN ORDERED WILL CONTINUE TO OBSERVE.
[2019-07-16 15:14] VITALS: BP 142/80
--- NOTE | 2019-07-16 18:00 | NUR ---
FLUID INTAKE HAS BEEN ADEQUATE BUT FOOD INTAKE HAS BEEN POOR PAIN MEDICATION GIVEN PER PATIENTS REQUEST MADE COMFORTABLE.
--- NOTE | 2019-07-16 19:00 | NUR ---
PATIENT ALERT ORIENTED, NO SOB NO CHEST PAIN, PATIENT ON TELE MONITOR SINUS RHYTHM SINUS TACHY. LEFT ARM WITH SLING, CONT ON PAIN MANAGEMENT. PATIENT TO MONITOR.
--- NOTE | 2019-07-16 20:30 | NUR ---
PATIENT REFUSED TO BE TURNED AND REPOSITION, GETS AGITATED, YELLS AND SCREAMS, CONT TO ENCOURAGED,
[2019-07-16] MEDS: ATORVASTATIN 40 MG TABLET PO SCH (20:37)
[2019-07-16] MEDS: QUETIAPINE FUMARATE 100 MG TABLET PO SCH (20:39)
[2019-07-16 20:43] VITALS: BP 126/71
[2019-07-16] MEDS: BUDESONIDE 0.5 MG/2 ML NEBU NEB SCH (21:10)
[2019-07-16] MEDS: ZOLPIDEM 5 MG TABLET PO PRN (21:37)
[2019-07-17] VITALS: BP 130/69
--- NOTE | 2019-07-17 | NUR ---
PATIENT WAS OFFERED TO BE TURNED AND REPOSITION, STILL REFUSED, ORIENTED PATIENT THAT SHE AT RISK FOR SKIN BREAKDOWN IF SHE CONTINUES TO REFUSED, PATIENT ALERT ORIENTED, UNDERSTAND THE REORIENTATION, BUT STRONGLY REFUSED, CONT TO MONITOR.
[2019-07-17] MEDS: ALBUTEROL SULFATE 2.5 MG/ 0.5 ML NEBU NEB SCH ×6 (03:30→23:30)
[2019-07-17] MEDS: IPRATROPIUM BROMIDE 0.5 MG/2.5 ML NEBU NEB SCH ×6 (03:30→23:30)
[2019-07-17 04:00] VITALS: BP 95/56
[2019-07-17] MEDS: MEROPENEM 1 G in IV NORMAL SALINE 100 ML IV SCH ×3 (05:02→21:00)
--- NOTE | 2019-07-17 06:05 | NUR ---
PATIENT SLEPT MOST OF THE NIGHT, NO SOB NO CHEST PAIN, TELE MONITOR SINUS RYHTYM WITH OCCASIONAL SINUS TACHY. PATIENT CONT ON PAIN MANAGEMENT FOR LEFT SHOULDER PAIN, LEFT SHOULDER WITH SLING, VITAL CATH PATENT DRAINING WITH YELLOW COLOR URINE IN MODERATE AMOUNT, PATIENT REFUSED TO BE TURNED AND REPOSITION, PATIENT GETS AGITATED WHEN TOUCHED, PATIENT ON LOW AIR LOSS MATTRESS, KEPT CLEAN AND DRY. CONT TO MONITOR.
[2019-07-17] MEDS: PANTOPRAZOLE SODIUM 40 MG TABLET.DR PO SCH (06:45)
--- NOTE | 2019-07-17 07:45 | NUR ---
RECEIVED PATIENT IN BED WITH EYES CLOSED BUT EASILY AROUSABLE ON ROUNDS NO S/S OF PAIN OR DISCOMFORTS AT THIS TIME ON ROOM AIR WITH NO SHORTNESS OF BREATH ON FIRST STEP STANISLAW FOR COMFORT LEFT ARM ON A SLING WITH ADEQUATE CIRCULATION AT THIS TIME WILL CONTINUE TO OBSERVE.
[2019-07-17] MEDS: BUDESONIDE 0.5 MG/2 ML NEBU NEB SCH ×2 (07:50→21:35)
[2019-07-17] MEDS: DIVALPROEX 250 MG TABLET.DR PO SCH ×3 (08:11→16:05)
[2019-07-17] MEDS: DULOXETINE 60 MG CAPSULE.DR PO SCH (08:11)
[2019-07-17] MEDS: HYDROCODONE/APAP 5-325MG TABLET PO PRN ×3 (08:15→20:34)
--- NOTE | 2019-07-17 09:34 | NUR ---
PATIENT SEEN AND EXAMINED BY YAZMIN LIRA WITH NEW ORDERS HE IS AWARE THAT PATIENT REFUSED HER LABS TODAY.
[2019-07-17 12:29] VITALS: BP_SYST 87; BP_SYST 97; BP_DIAS 43; BP_DIAS 53
--- NOTE | 2019-07-17 13:00 | NUR ---
DR HAYS HERE TO SEE PATIENT WITH NEW ORDERS AND NOTED.
--- NOTE | 2019-07-17 14:00 | NUR ---
PATIENT GIVEN INCENTIVE SPIROMETER ORDERED AND INSTRUCTED ON USE PART OF HER PRE OP TEACHING PATIENT STATED HAS USED INCENTIVE SPIROMETER MANY TIMES BEFORE AND KNOWS HOW WAS VERY RELUCTANT IN PARTICIPATING IN THE TEACHING PROCESS.WILL CONTINUE TO OBSERVE AND EDUCATE NEEDED.
[2019-07-17 15:52] VITALS: BP 100/45
--- NOTE | 2019-07-17 17:27 | NUR ---
PATIENT STATED HAVING A HEADACHE EVEN THOUGH SHE JUST HAD A NORCO ABOUT 1605 THAT WAS EFFECTIVE ICE PARK GIVEN AND SHE EXPRESSED THAT IT FEELS GOOD.WILL CONTINUE TO OBSERVE.
--- NOTE | 2019-07-17 18:04 | NUR ---
FEELS MUCH BETTER AT THIS TIME WILL CONTINUE TO OBSERVE.
[2019-07-17] MEDS: ATORVASTATIN 40 MG TABLET PO SCH (20:34)
[2019-07-17] MEDS: QUETIAPINE FUMARATE 100 MG TABLET PO SCH (20:34)
[2019-07-17 21:18] VITALS: BP 133/83
--- NOTE | 2019-07-18 00:15 | NUR ---
Received orders to give 500cc of NS bolus x 1 bag. Noted and carried out. Placed patient back to semi castillo's position and elevated both legs. Addendum: 07/18/19 at 0553 by LUCERO LYNCH RN Correct time: [id number]
--- NOTE | 2019-07-18 00:15 | NUR ---
RETAIL STOCKER reported of BP dropping to the low SBP 70's. RN rechecked with manual cuff, BP running at 70/40. Rest of vital signs normal. Patient is responsive to all stimuli, no changes from baseline. Placed in trendelenburg position. Will continue to monitor.
[2019-07-18 00:38] VITALS: BP 74/38
--- NOTE | 2019-07-18 00:45 | NUR ---
Patient's BP remains to be low despite positioning. Still on 70/40 on manual cuff. Same overall status. call worker person MD paged and left a message. Awaiting call back.
[2019-07-18] MEDS ORDERED: IV NORMAL SALINE 500 ML IV ONE (01:30)
--- NOTE | 2019-07-18 02:30 | NUR ---
IV Bolus almost finished, rechecked BP at this time: 110/86. Instructed WEATHERIZATION SPECIALIST to check BP one more time before morning vital signs. Pt tolerated the bolus well, no signs of fluid overload at this time. Remains no change from baseline status.
[2019-07-18] MEDS: ALBUTEROL SULFATE 2.5 MG/ 0.5 ML NEBU NEB SCH ×6 (03:30→23:29)
[2019-07-18] MEDS: IPRATROPIUM BROMIDE 0.5 MG/2.5 ML NEBU NEB SCH ×6 (03:30→23:29)
[2019-07-18 05:10] VITALS: BP 110/56
--- NOTE | 2019-07-18 05:53 | NUR ---
Patient slept well through the night, despite hypotensive episode. Latest BP: 110/56. Urine output: 350cc at this time. No S/Sx of fluid overload. Patient remains responsive at baseline level. Will continue to monitor and endorse accordingly.
[2019-07-18] MEDS: PANTOPRAZOLE SODIUM 40 MG TABLET.DR PO SCH (06:27)
[2019-07-18] MEDS: MEROPENEM 1 G in IV NORMAL SALINE 100 ML IV SCH (06:35)
--- NOTE | 2019-07-18 07:16 | NUR ---
RECEIVED PATIENT IN BED AWAKE DENIES PAIN OR DISCOMFORTS AT THIS TIME PATIENT KEPT NPO PENDING DECISION ON SURGERY TODAY ON O2 WITH NO SOB AT THIS TIME CALL LIGHTS AND PERSONAL BELONGINGS ARE WITHIN EASY REACH MADE COMFORTABLE WILL CONTINUE TO OBSERVE.
[2019-07-18] MEDS: BUDESONIDE 0.5 MG/2 ML NEBU NEB SCH ×2 (07:23→19:08)
[2019-07-18] MEDS: DIVALPROEX 250 MG TABLET.DR PO SCH ×3 (08:36→16:03)
[2019-07-18] MEDS: DULOXETINE 60 MG CAPSULE.DR PO SCH (08:36)
[2019-07-18 10:41] LABS: BASOPHILS # (AUTO) 0.1 K/uL (0.0-8.0); BASOPHILS % (AUTO) 0.5 % (0.0-2.0); EOSINOPHILS # (AUTO) 0.3 K/uL (0.0-0.7); EOSINOPHILS % (AUTO) 2.7 % (0.0-7.0); HEMATOCRIT 33.4 % (31.2-41.9); HEMOGLOBIN 11.1 g/dL (10.9-14.3); LYMPHOCYTES # (AUTO) 1.4 K/uL (20.0-40.0); LYMPHOCYTES % (AUTO) 12.1 % (20.5-51.5); MEAN CORPUSCULAR HEMOGLOBIN 29.8 uug (24.7-32.8); MEAN CORPUSCULAR HGB CONC 33 g/dL (32.3-35.6); MEAN CORPUSCULAR VOLUME 89.4 fL (75.5-95.3); MONOCYTES # (AUTO) 1.1 K/uL (2.0-10.0); NEUTROPHILS # (AUTO) 8.8 K/uL (1.8-8.9); NEUTROPHILS % (AUTO) 75.7 % (38.5-71.5); PLATELET COUNT (AUTO) 230 K/uL (179-408); RED BLOOD CELL COUNT(AUTO) 3.74 MIL/uL (3.63-4.92); WHITE BLOOD COUNT (AUTO) 11.6 K/uL (3.8-11.8)
[2019-07-18] MEDS: MORPHINE SULFATE 2 MG/1 ML DISP.SYRIN IV PRN ×4 (10:45→23:28)
--- NOTE | 2019-07-18 10:45 | NUR ---
PATIENT IS COMPLAINING OF PAIN IN HER LEFT ARM SHE IS NPO UNABLE TO GIVE HER ORAL NORCO ORDERED SO YAZMIN LIRA NOTIFIED WITH ORDER FOR MORPHINE GIVEN ORDERED WILL OBSERVE BLOOD PRESSURE AT THIS TIME IS 113/66
[2019-07-18 10:51] LABS: BILIRUBIN,TOTAL 0.3 mg/dL (0.2-1.0); CREATININE 0.7 mg/dL (0.6-1.3); POTASSIUM 3.8 mmol/L (3.5-5.1)
[2019-07-18 11:05] VITALS: BP 113/66
--- NOTE | 2019-07-18 11:51 | NUR ---
PATIENT SEEN AND EXAMINED BY JUDEEN COMANCHO CONSTRUCTION EQUIPMENT MECHANIC WITH ORDER TO DISCONTINUE ANTIBIOTICS AND NOTED.
[2019-07-18] MEDS ORDERED: POLYMYXIN B SULFATE 500,000 UNITS, BACITRACIN 50,000 UNITS, NORMAL SALINE 20 ML MC ONE ×3 (12:30)
--- NOTE | 2019-07-18 12:45 | NUR ---
DIE DESIGNER APPRENTICE HERE TO DRAW BLOOD FOR TYPE AND SCREEN ORDERED BUT PATIENT REFUSED STATED DID NOT WANT ANYMORE BLOOD DRAWS TODAY.PATIENTS RIGHT TO REFUSE RESPECTED WILL INFORM YAZMIN LIRA DNP.
[2019-07-18] MEDS ORDERED: VANCOMYCIN 1000 MG VIAL ONE (14:27)
[2019-07-18 15:10] VITALS: BP 123/66
[2019-07-18] MEDS ORDERED: FENTANYL CITRATE 100 MCG/2 ML AMPUL ONE ×3 (16:44→18:47)
[2019-07-18] MEDS ORDERED: MIDAZOLAM HCL 2 MG/2 ML VIAL ONE (16:44)
--- NOTE | 2019-07-18 17:00 | NUR ---
PATIENT PICKED UP BY BED TO OR FOR SCHEDULED SURGERY SHE IS AWAKE ALERT AND AWARE COMFORTABLE AT THIS TIME WITH NO DISTRESS SHE HAS BEEN ON ROOM AIR WITH NO RESPIRATORY DISTRESS.
[2019-07-18] MEDS ORDERED: EPHEDRINE SULFATE 50 MG/ML AMPUL IM ONE (18:36)
[2019-07-18] MEDS ORDERED: SEVOFLURANE 250 ML BOTTLE IH ONE (18:36)
[2019-07-18] MEDS ORDERED: ONDANSETRON 4 MG/2 ML VIAL IV ONE (18:36)
[2019-07-18] MEDS ORDERED: PROPOFOL 200 MG/20 ML BOTTLE IV ONE (18:36)
[2019-07-18] MEDS ORDERED: CEFAZOLIN 1 G VIAL IM ONE (18:36)
[2019-07-18] MEDS ORDERED: ESMOLOL HCL 100 MG/10 ML VIAL IV ONE (18:36)
[2019-07-18] MEDS ORDERED: IV NORMAL SALINE 1000 ML BAG IV ONE (18:36)
[2019-07-18] MEDS ORDERED: LIDOCAINE-MPF 2% 5 ML VIAL IJ ONE (18:36)
[2019-07-18] MEDS ORDERED: HYDROMORPHONE 1 MG/1 ML DISP.SYRIN ONE (19:15)
--- NOTE | 2019-07-18 20:00 | NUR ---
RECEIVED PT AWAKE, ALERT AND ORIENTEDX3. PT RETURN FROM OR. PT IN NO ACUTE DISTRESS. IV INTACT. SAFETY AND COMFORT PROVIDED. WILL CONTINUE TO MONITOR.
[2019-07-18 20:33] VITALS: BP 138/99
[2019-07-18] MEDS: ATORVASTATIN 40 MG TABLET PO SCH (20:35)
[2019-07-18] MEDS: IV D5W-0.45% NS +20 KCL 1,000 ML IV PRN (20:42)
[2019-07-18] MEDS: QUETIAPINE FUMARATE 100 MG TABLET PO SCH (21:00)
[2019-07-18] MEDS: ZOLPIDEM 5 MG TABLET PO PRN (22:09)
[2019-07-18] MEDS: ACETAMINOPHEN 325 MG TABLET PO PRN (23:27)
[2019-07-19 00:25] VITALS: BP 104/83
[2019-07-19] MEDS: CEFAZOLIN 1 G in PREMIXED 1 EACH IV SCH ×2 (01:16→09:20)
[2019-07-19] MEDS: ALBUTEROL SULFATE 2.5 MG/ 0.5 ML NEBU NEB SCH ×6 (02:50→23:30)
[2019-07-19] MEDS: IPRATROPIUM BROMIDE 0.5 MG/2.5 ML NEBU NEB SCH ×6 (02:50→23:30)
[2019-07-19 05:00] VITALS: BP 94/55
[2019-07-19] MEDS: MORPHINE SULFATE 2 MG/1 ML DISP.SYRIN IV PRN ×4 (05:29→20:45)
--- NOTE | 2019-07-19 06:08 | NUR ---
PT SLEPT INTERMITTENTLY. PT IN NO ACUTE DISTRESS. IV INTACT. PT GIVEN MORPHINE FOR PAIN . PT TOLERATED IT WELL. PRESCRIBED MEDICATION GIVEN AND PT TOLERATED IT WELL. ALL NEEDS ARE MET. WILL ENDORSE TO INCOMING NURSE FOR CONTINUITY OF CARE.
[2019-07-19] MEDS: PANTOPRAZOLE SODIUM 40 MG TABLET.DR PO SCH (06:22)
[2019-07-19] MEDS: BUDESONIDE 0.5 MG/2 ML NEBU NEB SCH ×2 (07:30→19:30)
--- NOTE | 2019-07-19 07:30 | NUR ---
ON FIRST STEP STANISLAW AWAKE ALERT AND ORIENTED SHE GET RESISTIVE WITH CARE REFUSING TO BE REPOSITIONED AT THIS TIME LEFT ARM WITH DRESSING DRY AND INTACT WITH SLING MID LINE RIGHT FOREARM REMAIN INTACT CALL LIGHTS AND PERSONAL BELONGINGS ARE WITHIN EASY REACH WILL CONTINUE TO OBSERVE AND PROVIDE SAFE AND THERAPEUTIC ENVIRONMENT.
[2019-07-19] MEDS: DIVALPROEX 250 MG TABLET.DR PO SCH ×3 (08:34→17:00)
[2019-07-19] MEDS: DULOXETINE 60 MG CAPSULE.DR PO SCH (08:34)
[2019-07-19] MEDS: IV D5W-0.45% NS +20 KCL 1,000 ML IV PRN (10:51)
--- NOTE | 2019-07-19 11:12 | NUR ---
DR HAYS HERE TO SEE PATIENT WITH NO NEW ORDERS AT THIS TIME.
[2019-07-19 11:25] VITALS: BP 138/42
[2019-07-19 15:30] VITALS: BP 119/61
--- NOTE | 2019-07-19 18:11 | NUR ---
PATIENT COMPLAINING OF SORE THROAT DR QUISPE NOTIFIED WITH ORDER FOR LOZENGES AND NOTED.NO COUGHING NOTED AFEBRILE
[2019-07-19] MEDS ORDERED: BENZOCAINE/MENTH/CETYLPYRD LOZENGE MM PRN (18:15)
--- NOTE | 2019-07-19 18:51 | NUR ---
NOTED THAT PATIENT HAS NOT HAD A BOWEL MOVEMENT PER [facility] DOCUMENTATION SO I ASKED HER AND SHE STATED THAT SHE HAD ONE THURSDAY OR THURSDAY BUT NOT CERTAIN OFFERED LAXATIVES BUT SHE DECLINED STATED IT WILL HAPPEN WHEN ITS READY WILL ENDORSE PATIENTS RIGHT TO REFUSE RESPECTED.
[2019-07-19 20:02] VITALS: BP 99/55
[2019-07-19] MEDS: ZOLPIDEM 5 MG TABLET PO PRN (20:53)
[2019-07-19] MEDS: ATORVASTATIN 40 MG TABLET PO SCH (20:58)
[2019-07-19] MEDS: QUETIAPINE FUMARATE 100 MG TABLET PO SCH (21:00)
[2019-07-20] VITALS: BP 99/61
[2019-07-20] MEDS: ALBUTEROL SULFATE 2.5 MG/ 0.5 ML NEBU NEB SCH ×6 (03:10→23:30)
[2019-07-20] MEDS: IPRATROPIUM BROMIDE 0.5 MG/2.5 ML NEBU NEB SCH ×6 (03:10→23:30)
[2019-07-20 04:00] VITALS: BP 108/49
[2019-07-20 07:02] VITALS: BP 108/49
[2019-07-20] MEDS: BUDESONIDE 0.5 MG/2 ML NEBU NEB SCH ×2 (07:30→20:45)
--- NOTE | 2019-07-20 08:00 | NUR ---
RECEIVED PATIENT IN BED RESTING, NO SOB NOTED AT THIS TIME, NO C/O PAIN NOTED AT THIS TIME. IV INTACT AND PATENT. SAFETY AND COMFORT PROVIDED AT ALL TIMES. CALL LIGHT WITHIN REACH. WILL CONTINUE TO MONITOR.
[2019-07-20] MEDS: DULOXETINE 60 MG CAPSULE.DR PO SCH (08:47)
[2019-07-20] MEDS: DIVALPROEX 250 MG TABLET.DR PO SCH ×3 (08:48→17:41)
[2019-07-20] MEDS: PANTOPRAZOLE SODIUM 40 MG TABLET.DR PO SCH (08:48)
[2019-07-20] MEDS: MORPHINE SULFATE 2 MG/1 ML DISP.SYRIN IV PRN ×3 (10:33→20:14)
[2019-07-20] MEDS: IV D5W-0.45% NS +20 KCL 1,000 ML IV PRN (10:39)
[2019-07-20 12:02] VITALS: BP 131/71
[2019-07-20] MEDS: HYDROCODONE/APAP 10-325 MG TABLET PO PRN ×2 (12:12→19:06)
[2019-07-20 15:45] VITALS: BP 91/52
--- NOTE | 2019-07-20 18:18 | NUR ---
Patient in bed with HOB elevated , watching TV, no sob noted, c/o pain and PRN pain meds given as order. IV intact and patent, safety and comfort provided. will continue to monitor.
--- NOTE | 2019-07-20 19:20 | NUR ---
Received patient lying in bed. AAOx4 In no acute distress. On O2 at 3LPM via NC in place. Sinus tachy on tele at 104/min. Denies any SOB. Left arm with dressing intact. Midline on right upper arm intact and patent. IVF infusing. Safety measure initiated and call pink within reached.
[2019-07-20 20:13] VITALS: BP 142/78
[2019-07-20] MEDS: QUETIAPINE FUMARATE 100 MG TABLET PO SCH (20:14)
[2019-07-20] MEDS: ATORVASTATIN 40 MG TABLET PO SCH (20:14)
[2019-07-20] MEDS: ZOLPIDEM 5 MG TABLET PO PRN (21:41)
[2019-07-21] VITALS (20 sets, daily range): BP systolic 91–161; BP diastolic 40–98
[2019-07-21] MEDS: IV D5W-0.45% NS +20 KCL 1,000 ML IV PRN (02:41)
[2019-07-21] MEDS: ALBUTEROL SULFATE 2.5 MG/ 0.5 ML NEBU NEB SCH ×6 (03:30→23:30)
[2019-07-21] MEDS: IPRATROPIUM BROMIDE 0.5 MG/2.5 ML NEBU NEB SCH ×6 (03:30→23:30)
--- NOTE | 2019-07-21 05:24 | NUR ---
AAOx4 In no acute distress. Denies any SOB. O2 sat at 97% on RA. Sinus tachy on tele at 103/min. Left arm with dressing intact. No further complain of pain. Midline on right upper arm intact and patent. IVF continue to infuse. Safety measure maintained and call pink within reached.
--- NOTE | 2019-07-21 05:44 | NUR ---
Patient refused blood draw per bal goodrich/Víctor.
[2019-07-21] MEDS: PANTOPRAZOLE SODIUM 40 MG TABLET.DR PO SCH (06:08)
[2019-07-21] MEDS: BUDESONIDE 0.5 MG/2 ML NEBU NEB SCH ×2 (07:23→19:45)
[2019-07-21] MEDS: DULOXETINE 60 MG CAPSULE.DR PO SCH (09:00)
[2019-07-21] MEDS: DIVALPROEX 250 MG TABLET.DR PO SCH ×3 (09:00→18:31)
--- NOTE | 2019-07-21 11:45 | NUR ---
Patient BP 89/56. MD aware and new orders carried out. Discharge back to [facility] on hold. Will reassess after bolus.
[2019-07-21] MEDS ORDERED: IV NORMAL SALINE 500 ML IV ONE (12:15)
[2019-07-21] MEDS ORDERED: IV NS 1000 ML 1,000 ML IV ONE (13:45)
--- NOTE | 2019-07-21 14:00 | NUR ---
Patient BP continues to decrease after second order of bolus order carried out. MD aware; Advised to transfer to CCU for close monitoring.
--- NOTE | 2019-07-21 15:40 | NUR ---
Report given to Chastity RN to be transferred to CCU [id number]
--- NOTE | 2019-07-21 15:51 | NUR ---
Receive patient from tele floor, patient awake and alert, oxygen 3L NC. Air mattress inflated, patient refusing to be turned repositioned or touched. Placed patient on the monitor. and dvt pumps on. Sánchez draining.
[2019-07-21 16:24] LABS: CREATININE 0.6 mg/dL (0.6-1.3); MAGNESIUM 1.8 mg/dL (1.8-2.4); PHOSPHOROUS 3.1 mg/dL (2.5-4.9); POTASSIUM 4.7 mmol/L (3.5-5.1)
[2019-07-21] MEDS ORDERED: PHENYLEPHRINE IV 20 MG in IV DEXTROSE 5% 250 ML IV PRN (16:45)
[2019-07-21] MEDS: IV NS 1000 ML 1,000 ML IV PRN (17:09)
[2019-07-21] MEDS: HYDROCODONE/APAP 10-325 MG TABLET PO PRN (17:12)
--- NOTE | 2019-07-21 18:00 | NUR ---
Patient had a fever of 100.4, notified ID BRENDON Onofre. she will be ordering labs and blood cultures. Contacted Dr. holland for need for PICC line as patient will need to be places on pressors due to decreasing blood pressures.
[2019-07-21 18:36] LABS: BASOPHILS % (AUTO) 0.1 % (0.0-2.0); HEMATOCRIT 22.5 % (31.2-41.9); MEAN CORPUSCULAR HEMOGLOBIN 29.3 uug (24.7-32.8); MEAN CORPUSCULAR HGB CONC 32 g/dL (32.3-35.6); MEAN CORPUSCULAR VOLUME 90.7 fL (75.5-95.3); MONOCYTES # (AUTO) 0.9 K/uL (2.0-10.0); MONOCYTES % (AUTO) 6.6 % (0.0-11.0); NEUTROPHILS # (AUTO) 11.4 K/uL (1.8-8.9)
[2019-07-21 18:38] LABS: EOSINOPHILS # (AUTO) 0.1 K/uL (0.0-0.7); LYMPHOCYTES # (AUTO) 1.8 K/uL (20.0-40.0); LYMPHOCYTES % (AUTO) 12.3 % (20.5-51.5); PLATELET COUNT (AUTO) 185 K/uL (179-408); WHITE BLOOD COUNT (AUTO) 14.3 K/uL (3.8-11.8)
[2019-07-21 18:39] LABS: RED BLOOD CELL COUNT(AUTO) 2.48 MIL/uL (3.63-4.92)
[2019-07-21 18:41] LABS: HEMOGLOBIN 7.3 g/dL (10.9-14.3)
[2019-07-21] MEDS ORDERED: diphenhydrAMINE 50 MG/1 ML VIAL IV ONE (18:45)
--- NOTE | 2019-07-21 19:30 | NUR ---
Patients labs were done and lactic acid reported to [place] butt. Blood results also reported for Hemoglobin 7.3 and one unit PRBC ordered by Dr. Valverde. Patient has been beligerent and screaming and does not want to be touched. Daughter Jeannette was notified that patient is in need of PICC line where she consented for. Daughter indicated to please do what she needs done and she will try to talk her into things via phone if she is refusing. BP is stable at this time on Neosynephrine 140 mcg. Picc line nurse to be here shortly.
--- NOTE | 2019-07-21 19:45 | NUR ---
patient was eatng dinner by herself , confused but able to follow simple command , nc 3 l , iv running at 100 ml ns . neosynephrine at 140 mcg , midline right upper arm , daughter was called for consent for blood , and got telephone order , peewee lee on left shoulder with sling on place
--- NOTE | 2019-07-21 20:00 | NUR ---
picc line nurse is here to see patient , to insert anew picc line and remove the midline
--- NOTE | 2019-07-21 20:45 | NUR ---
cxr done to confirm picc line placemen t
--- NOTE | 2019-07-21 20:48 | NUR ---
PHARMACY CLINICAL NOTES ( VANCOMYCIN DOSING) S: 78 YO female; was transferred to [facility] today due to SIRS vs sepsis (temp 100.6F, HR>100, hypotension), per ID 's note being treated empirically with Merrem and Vancomycin. O: BUN/SCR 17/0.6, WBC 14.3,T max 100.6, dosing wt 69 kg , T 1/2 15.75 hr A/P : will dose Vancomycin as 1000 mg IVPB q18h. This regimen would yield peak of 37 and trough of 17. Plan to order trough prior to 4th dose of Vancomycin (not ordered yet). Will continue to monitor renal fxn and levels and adjust dose if it becomes necessary.
[2019-07-21] MEDS: QUETIAPINE FUMARATE 100 MG TABLET PO SCH (21:00)
[2019-07-21] MEDS: ATORVASTATIN 40 MG TABLET PO SCH (21:00)
[2019-07-21 21:16] LABS: BILIRUBIN,DIRECT 0.1 mg/dL (0.0-0.2); BILIRUBIN,TOTAL 0.4 mg/dL (0.2-1.0)
[2019-07-21] MEDS: VANCOMYCIN IV 1,000 MG in IV DEXTROSE 5% 250 ML IV SCH (21:29)
[2019-07-21] MEDS: PHENYLEPHRINE IV 40 MG in IV DEXTROSE 5% 250 ML IV PRN (22:29)
--- NOTE | 2019-07-21 23:39 | NUR ---
distraction , changing position , pain medication distraction , changing position , pain medication Addendum: 07/21/19 at 2340 by JENNIFER PATTERSON RN Amended: Kalyani added. Addendum: 07/21/19 at 2341 by JENNIFER PATTERSON RN Amended: Kalyani isaac. Addendum: 07/21/19 at 2341 by JENNIFER PATTERSON RN Amended: Links added.
--- NOTE | 2019-07-21 23:40 | NUR ---
lab work being monitored , patient is on neosynephrine being titrated , receiveing 1 unit of prbc tonight Addendum: 07/21/19 at 2341 by JENNIFER PATTERSON RN Amended: Links added. Addendum: 07/21/19 at 2341 by JENNIFER PATTERSON RN Amended: Links added.
--- NOTE | 2019-07-21 23:41 | NUR ---
shivam starksy consult ordered Addendum: 07/21/19 at 2341 by JENNIFER PATTERSON RN Amended: Links added.
--- NOTE | 2019-07-21 23:42 | NUR ---
patient i son antiobiotics Addendum: 07/21/19 at 2342 by JENNIFER PATTERSON RN Amended: Links added.
--- NOTE | 2019-07-21 23:43 | NUR ---
changing position and kci bed ordered Addendum: 07/21/19 at 2343 by JENNIFER PATTERSON RN Amended: Links added.
[2019-07-22] VITALS (72 sets, daily range): BP systolic 62–179; BP diastolic 14–120
--- NOTE | 2019-07-22 | NUR ---
patient is very confused , able to follow simple command , verbally abusive , 1 packed of prbc running
[2019-07-22] MEDS ORDERED: diphenhydrAMINE 50 MG/1 ML VIAL ONE (00:09)
--- NOTE | 2019-07-22 00:09 | NUR ---
, restless , verbally abusive
[2019-07-22] MEDS: MEROPENEM 1 G in IV NORMAL SALINE 100 ML IV SCH ×4 (01:06→19:58)
--- NOTE | 2019-07-22 01:32 | NUR ---
resting quietly , snacks offered , and accepted , jello was fed
[2019-07-22] MEDS: MORPHINE SULFATE 2 MG/1 ML DISP.SYRIN IV PRN ×2 (02:11→18:42)
--- NOTE | 2019-07-22 02:40 | NUR ---
patient needs reinforcement of blood transfusion , changing position , hygiene, vasopressors . unable to comprehend , confused Addendum: 07/22/19 at 0241 by JENNIFER PATTERSON RN Amended: Links added. Addendum: 07/22/19 at 0241 by JENNIFER PATTERSON RN Amended: Links added.
--- NOTE | 2019-07-22 02:41 | NUR ---
bed alarm on , cords patient can reach is put away Addendum: 07/22/19 at 0241 by JENNIFER PATTERSON RN Amended: Links added.
[2019-07-22] MEDS: PHENYLEPHRINE IV 40 MG in IV DEXTROSE 5% 250 ML IV PRN ×3 (02:52→20:44)
[2019-07-22] MEDS: LORAZEPAM 2 MG/1 ML VIAL IV PRN (03:07)
[2019-07-22] MEDS: ALBUTEROL SULFATE 2.5 MG/ 0.5 ML NEBU NEB SCH ×6 (03:30→22:52)
[2019-07-22] MEDS: IPRATROPIUM BROMIDE 0.5 MG/2.5 ML NEBU NEB SCH ×6 (03:30→22:52)
[2019-07-22 05:38] LABS: BASOPHILS % (AUTO) 0.1 % (0.0-2.0); EOSINOPHILS # (AUTO) 0.2 K/uL (0.0-0.7); EOSINOPHILS % (AUTO) 2.2 % (0.0-7.0); HEMATOCRIT 23.8 % (31.2-41.9); MEAN CORPUSCULAR HEMOGLOBIN 29.7 uug (24.7-32.8); MEAN CORPUSCULAR HGB CONC 34 g/dL (32.3-35.6); MEAN CORPUSCULAR VOLUME 88.1 fL (75.5-95.3); MONOCYTES # (AUTO) 0.7 K/uL (2.0-10.0); MONOCYTES % (AUTO) 6.4 % (0.0-11.0); NEUTROPHILS # (AUTO) 9.2 K/uL (1.8-8.9); NEUTROPHILS % (AUTO) 82.3 % (38.5-71.5); PLATELET COUNT (AUTO) 181 K/uL (179-408); WHITE BLOOD COUNT (AUTO) 11.2 K/uL (3.8-11.8)
[2019-07-22] MEDS: PANTOPRAZOLE SODIUM 40 MG TABLET.DR PO SCH (06:18)
--- NOTE | 2019-07-22 07:51 | NUR ---
Dr. Valverde here to see pt. Full report given. New orders received.
[2019-07-22] MEDS: BUDESONIDE 0.5 MG/2 ML NEBU NEB SCH ×2 (07:57→19:23)
[2019-07-22] MEDS: DULOXETINE 60 MG CAPSULE.DR PO SCH ×2 (09:00→09:08)
[2019-07-22] MEDS: DIVALPROEX 250 MG TABLET.DR PO SCH ×4 (09:00→17:00)
[2019-07-22] MEDS: IV NS 1000 ML 1,000 ML IV PRN (09:16)
--- NOTE | 2019-07-22 11:10 | NUR ---
Dr. Phillips here to see pt. Full report given. New orders received.
--- NOTE | 2019-07-22 14:55 | NUR ---
PHARMACY CLINICAL NOTES ( VANCOMYCIN DOSING) S: 78 YO female; was transferred to [facility]cu due to SIRS vs sepsis (temp 100.6F, HR>100, hypotension), per ID 's note being treated empirically with Merrem and Vancomycin. O: BUN/SCR 17/0.6 (2/), WBC 11.2,T max 98.6, dosing wt 69 kg , T 1/2 15.75 hr A/P : Will continue with Vancomycin 1000 mg IVPB q18h. This regimen would yield peak of 37 and trough of 17. Plan to order trough prior to 4th dose of Vancomycin (not ordered yet). Will continue to monitor renal fxn and levels and adjust dose if it becomes necessary.
[2019-07-22] MEDS: VANCOMYCIN IV 1,000 MG in IV DEXTROSE 5% 250 ML IV SCH (17:26)
--- NOTE | 2019-07-22 20:00 | NUR ---
dinner offered and refused ,
[2019-07-22] MEDS: ATORVASTATIN 40 MG TABLET PO SCH (20:44)
[2019-07-22] MEDS: QUETIAPINE FUMARATE 100 MG TABLET PO SCH (20:44)
--- NOTE | 2019-07-22 22:00 | NUR ---
jose or angel offered and refused
--- NOTE | 2019-07-22 22:36 | NUR ---
patient is on antibiotics and surgical site is being monitored fo infection Addendum: 07/22/19 at 2235 by JENNIFRE PATTERSON RN Amended: Kalyani isaac. Addendum: 07/22/19 at 2235 by JENNIFER PATTERSON RN Amended: Kalyani isaac. Addendum: 07/22/19 at 2237 by JENNIFER PATTERSON RN Amended: Links added. Addendum: 07/22/19 at 2239 by JENNIFER PATTERSON RN Amended: Links added.
--- NOTE | 2019-07-22 22:36 | NUR ---
surgical site is being kept dry and clean Addendum: 07/22/19 at 2236 by JENNIFER PATTERSON RN Amended: Kalyani added. Addendum: 07/22/19 at 8 by JENNIFER PATTERSON RN Amended: Kalyani isaac. Addendum: 07/22/19 at 2239 by JENNIFER PATTERSON RN Amended: Links added.
--- NOTE | 2019-07-22 22:37 | NUR ---
patient is being helped an doffered meals intermittently and nutritional consult has been ordered Addendum: 07/22/19 at 2238 by JENNIFER PATTERSON RN Amended: Links added. Addendum: 07/22/19 at 223 by JENNIFER PATTERSON RN Amended: Links added.
--- NOTE | 2019-07-22 22:39 | NUR ---
education being given about hygiene and medications being given unable to comprehend , reinforcement given Addendum: 07/22/19 at 2239 by JENNIFER PATTERSON RN Amended: Links added.
--- NOTE | 2019-07-22 22:40 | NUR ---
patient has an iv fluid of ns at 100 ml /hr Addendum: 07/22/19 at 2240 by JENNIFER PATTERSON RN Amended: Links added.
[2019-07-23] VITALS (78 sets, daily range): BP systolic 59–151; BP diastolic 32–119
[2019-07-23 00:46] LABS: *OCCULT BLOOD STOOL NEGATIVE (NEGATIVE)
--- NOTE | 2019-07-23 00:58 | NUR ---
sleeping soundly , arousable , confused , verbally abusive , dressing on the left shoulder intact , no bleeding , sling on place
[2019-07-23] MEDS: PHENYLEPHRINE IV 40 MG in IV DEXTROSE 5% 250 ML IV PRN ×2 (01:31→05:31)
[2019-07-23] MEDS: IV NS 1000 ML 1,000 ML IV PRN (02:21)
[2019-07-23] MEDS: IPRATROPIUM BROMIDE 0.5 MG/2.5 ML NEBU NEB SCH ×5 (03:02→20:15)
[2019-07-23] MEDS: ALBUTEROL SULFATE 2.5 MG/ 0.5 ML NEBU NEB SCH ×5 (03:02→20:15)
[2019-07-23] MEDS: MEROPENEM 1 G in IV NORMAL SALINE 100 ML IV SCH ×3 (03:50→20:09)
[2019-07-23] MEDS ORDERED: PHENYLEPHRINE 10 MG/1 ML VIAL ONE (04:24)
--- NOTE | 2019-07-23 05:40 | NUR ---
christiano de guzman np was called and notified of neosynephrine dose already of 300 mcg / mi , and vs , no order received
--- NOTE | 2019-07-23 06:35 | NUR ---
lethargic but arousable , agressive and non compliant when awake , vs 125/70 oxygen at facial mask at 4 l with humidifier , picc line site is intact and surgical site and intact , sling is in placed with 1+ edema on lft upper arm , nail color is wnl
[2019-07-23] MEDS: PANTOPRAZOLE SODIUM 40 MG TABLET.DR PO SCH (06:39)
[2019-07-23 07:01] LABS: BASOPHILS % (AUTO) 0.2 % (0.0-2.0); EOSINOPHILS % (AUTO) 0.2 % (0.0-7.0); HEMATOCRIT 26.8 % (31.2-41.9); HEMOGLOBIN 8.9 g/dL (10.9-14.3); LYMPHOCYTES # (AUTO) 0.6 K/uL (20.0-40.0); LYMPHOCYTES % (AUTO) 2.3 % (20.5-51.5); MEAN CORPUSCULAR HEMOGLOBIN 29.1 uug (24.7-32.8); MEAN CORPUSCULAR HGB CONC 33 g/dL (32.3-35.6); MEAN CORPUSCULAR VOLUME 87.9 fL (75.5-95.3); MONOCYTES # (AUTO) 1.2 K/uL (2.0-10.0); NEUTROPHILS # (AUTO) 21.9 K/uL (1.8-8.9); NEUTROPHILS % (AUTO) 92.3 % (38.5-71.5); PLATELET COUNT (AUTO) 241 K/uL (179-408); RED BLOOD CELL COUNT(AUTO) 3.05 MIL/uL (3.63-4.92); WHITE BLOOD COUNT (AUTO) 23.7 K/uL (3.8-11.8)
[2019-07-23 07:11] LABS: CARBON DIOXIDE 28 mmol/L (21-32); CHLORIDE 104 mmol/L (98-107); CREATININE 0.4 mg/dL (0.6-1.3); GLUCOSE 115 mg/dL (74-106); MAGNESIUM 1.4 mg/dL (1.8-2.4); PHOSPHOROUS 3.1 mg/dL (2.5-4.9); UREA NITROGEN, BLOOD 7 mg/dL (7-18)
[2019-07-23] MEDS: BUDESONIDE 0.5 MG/2 ML NEBU NEB SCH ×2 (07:30→20:15)
[2019-07-23] MEDS: PHENYLEPHRINE IV 80 MG in IV DEXTROSE 5% 250 ML IV PRN ×4 (08:00→23:46)
[2019-07-23 08:01] LABS: POTASSIUM 2.9 mmol/L (3.5-5.1)
[2019-07-23 08:40] LABS: ABG BASE EXCESS 5.4 mmol/L; ABG HCO3 29.8 mmol/L; ABG PCO2 43.2 mmHg (35.0-45.0); ABG PH 7.457 (7.350-7.450); ABG PO2 140.8 mmHg (75.0-100.0); ABG SITE RIGHT RADIAL; ABG TOTAL HEMOGLOBIN 10.5 G/dL (12.0-16.0); COHb 1.3 % (0.5-1.5); MetHb 0.2 % (0.0-1.5); O2Hb 97.3 % (94.0-97.0); VENT MODE Mask - Simple 7L
[2019-07-23] MEDS: DIVALPROEX 250 MG TABLET.DR PO SCH ×3 (09:00→16:59)
[2019-07-23] MEDS: DULOXETINE 60 MG CAPSULE.DR PO SCH (09:00)
[2019-07-23] MEDS: VANCOMYCIN IV 1,000 MG in IV DEXTROSE 5% 250 ML IV SCH (10:11)
--- NOTE | 2019-07-23 11:04 | NUR ---
PHARMACY CLINICAL NOTES ( VANCOMYCIN DOSING) S: 78 YO female; Continue Vancomycin for sepsis, ? PNA, bacteremia. O: BUN/SCR 17/0.4 , WBC 23.7 ,T max 98.3, dosing wt 69 kg , A/P : Will continue with Vancomycin 1000 mg IVPB q18h. This regimen would yield peak of 37 and trough of 17. Plan to order trough prior to 4th dose of Vancomycin (ordered for tomorrow at 0330). Will continue to monitor renal fxn and levels and adjust dose if it becomes necessary.
[2019-07-23] MEDS: MAGNESIUM SULFATE/D5W 100 ML IV SCH ×4 (12:15→16:17)
[2019-07-23 12:30] LABS: BASOPHILS # (AUTO) 0.1 K/uL (0.0-8.0); BASOPHILS % (AUTO) 0.3 % (0.0-2.0); EOSINOPHILS # (AUTO) 0.1 K/uL (0.0-0.7); EOSINOPHILS % (AUTO) 0.2 % (0.0-7.0); HEMATOCRIT 31.4 % (31.2-41.9); HEMOGLOBIN 10.4 g/dL (10.9-14.3); LYMPHOCYTES # (AUTO) 0.5 K/uL (20.0-40.0); LYMPHOCYTES % (AUTO) 1.7 % (20.5-51.5); MEAN CORPUSCULAR HEMOGLOBIN 28.9 uug (24.7-32.8); MEAN CORPUSCULAR HGB CONC 33 g/dL (32.3-35.6); MEAN CORPUSCULAR VOLUME 87.4 fL (75.5-95.3); MONOCYTES # (AUTO) 1.3 K/uL (2.0-10.0); MONOCYTES % (AUTO) 4.6 % (0.0-11.0); NEUTROPHILS # (AUTO) 26.2 K/uL (1.8-8.9); NEUTROPHILS % (AUTO) 93.2 % (38.5-71.5); PLATELET COUNT (AUTO) 302 K/uL (179-408); RED BLOOD CELL COUNT(AUTO) 3.59 MIL/uL (3.63-4.92); WHITE BLOOD COUNT (AUTO) 28.1 K/uL (3.8-11.8)
[2019-07-23] MEDS: MORPHINE SULFATE 2 MG/1 ML DISP.SYRIN IV PRN ×2 (14:29→18:38)
--- NOTE | 2019-07-23 16:25 | NUR ---
Nutrition consult for poor appetite and <50% Pt has been following by dietitian. Pt seen at bedside today, pt refused food preferences, refused oral supplement, but wants pudding and apple juice with all meals. Encouraged po intake and food selection. Dietitian continues f/u Addendum: 07/23/19 at [address]29 [address] Amended: Links added.
[2019-07-23] MEDS: POTASSIUM CHLORIDE 50 ML IV SCH ×4 (16:59→20:44)
[2019-07-23 19:18] LABS: BILIRUBIN,DIRECT 0.1 mg/dL (0.0-0.2); BILIRUBIN,TOTAL 0.6 mg/dL (0.2-1.0)
--- NOTE | 2019-07-23 20:00 | NUR ---
received pt. awake, confused, disoriented & agitated. on o2 @ 4lnc w/ o2 sat of 98%. on neosynephrine drip @ 250mcq/min on teresa picc line.ns @ 100cc/hr. ns tko for ivpb meds on one port. repositioned w/ hob elevated.
[2019-07-23] MEDS: QUETIAPINE FUMARATE 100 MG TABLET PO SCH (20:37)
[2019-07-23] MEDS: ATORVASTATIN 40 MG TABLET PO SCH (20:37)
[2019-07-23] MEDS: ACETAMINOPHEN 325 MG TABLET PO PRN (20:52)
[2019-07-24] VITALS (88 sets, daily range): BP systolic 50–164; BP diastolic 22–124
--- NOTE | 2019-07-24 | NUR ---
called dr. holland re: low bp w/ max neosynephrine drip w/ order to start on levophed drip.
[2019-07-24] MEDS: ALBUTEROL SULFATE 2.5 MG/ 0.5 ML NEBU NEB SCH ×7 (00:01→23:19)
[2019-07-24] MEDS: IPRATROPIUM BROMIDE 0.5 MG/2.5 ML NEBU NEB SCH ×7 (00:01→23:19)
[2019-07-24] MEDS ORDERED: NOREPINEPHRINE BITARTRATE 4 MG/4 ML VIAL IV ONE (00:06)
[2019-07-24] MEDS: IV NS 1000 ML 1,000 ML IV PRN ×3 (00:14→21:06)
[2019-07-24] MEDS: NOREPINEPHRINE BITARTRATE 8 MG in IV DEXTROSE 5% 500 ML IV PRN ×4 (00:15→16:18)
[2019-07-24] MEDS: MEROPENEM 1 G in IV NORMAL SALINE 100 ML IV SCH ×3 (03:24→19:57)
[2019-07-24 03:38] LABS: BASOPHILS # (AUTO) 0.1 K/uL (0.0-8.0); BASOPHILS % (AUTO) 0.3 % (0.0-2.0); EOSINOPHILS # (AUTO) 0.2 K/uL (0.0-0.7); EOSINOPHILS % (AUTO) 0.9 % (0.0-7.0); HEMATOCRIT 29.4 % (31.2-41.9); HEMOGLOBIN 9.7 g/dL (10.9-14.3); LYMPHOCYTES # (AUTO) 0.9 K/uL (20.0-40.0); LYMPHOCYTES % (AUTO) 4.1 % (20.5-51.5); MEAN CORPUSCULAR HEMOGLOBIN 28.9 uug (24.7-32.8); MEAN CORPUSCULAR HGB CONC 33 g/dL (32.3-35.6); MEAN CORPUSCULAR VOLUME 87.8 fL (75.5-95.3); MONOCYTES # (AUTO) 1.1 K/uL (2.0-10.0); NEUTROPHILS # (AUTO) 19.5 K/uL (1.8-8.9); NEUTROPHILS % (AUTO) 89.7 % (38.5-71.5); PLATELET COUNT (AUTO) 287 K/uL (179-408); RED BLOOD CELL COUNT(AUTO) 3.34 MIL/uL (3.63-4.92); WHITE BLOOD COUNT (AUTO) 21.7 K/uL (3.8-11.8)
[2019-07-24 03:48] LABS: CREATININE 0.7 mg/dL (0.6-1.3); MAGNESIUM 2.3 mg/dL (1.8-2.4); PHOSPHOROUS 2.9 mg/dL (2.5-4.9)
[2019-07-24 03:50] LABS: POTASSIUM 2.8 mmol/L (3.5-5.1)
[2019-07-24] MEDS: VANCOMYCIN IV 1,000 MG in IV DEXTROSE 5% 250 ML IV SCH ×2 (03:55→16:21)
[2019-07-24] MEDS: PHENYLEPHRINE IV 80 MG in IV DEXTROSE 5% 250 ML IV PRN ×4 (04:06→21:18)
--- NOTE | 2019-07-24 05:00 | NUR ---
AM CARE DONE. REFUSED ORAL CARE. REPOSITIONED W/ HOB ELEVATED.
[2019-07-24] MEDS: PANTOPRAZOLE SODIUM 40 MG TABLET.DR PO SCH (06:15)
[2019-07-24] MEDS ORDERED: POTASSIUM CHLORIDE 50 ML IV SCH ×2 (06:45→10:00)
[2019-07-24] MEDS: BUDESONIDE 0.5 MG/2 ML NEBU NEB SCH ×2 (07:39→19:23)
[2019-07-24] MEDS: POTASSIUM CHLORIDE 50 ML IV SCH ×6 (07:55→17:20)
--- NOTE | 2019-07-24 08:00 | NUR ---
PT'S BP IS STILL VERY LOW IN THE 70'S SYSTOLIC. NEOSYNEPHRINE DRIP IS MAX OUT AT 300MG, LEVOPHED INCREASEDD UP TO 17MCG/MIN TO KEEP BP ABOVE 90SYSTOLIC. PT IS AWAKE AND ORIENTED TO HER NAME AND PLACE, FORGETFUL AND AT TIMES VERY ANGRY AND VERBALLY ABUSIVE MOST OF THE TIME. COLOR IS GOOD . SKIN IS WARM AND DRY, FEBRILE AT 101F. MEDICATED WITH TYLENOL 650MG PO. PT HAS O2 4L NC AND SATTING ABOVE 92%. HR IS SR-ST, NO C/O CP.
[2019-07-24] MEDS: DIVALPROEX 250 MG TABLET.DR PO SCH ×3 (08:15→17:22)
[2019-07-24] MEDS: DULOXETINE 60 MG CAPSULE.DR PO SCH (08:15)
--- NOTE | 2019-07-24 08:15 | NUR ---
ABDOMEN IS BIG AND DISTENDED BUT SOFT TO TOUCH. PT IS GRIMACING WHEN PRESSED LIGHTLY. NO BM NOTED AT THIS TIME. NO N/V NOTED. ATE VERY LITTLE FOR BREAKFAST.
[2019-07-24] MEDS: ACETAMINOPHEN 325 MG TABLET PO PRN ×3 (08:20→23:46)
[2019-07-24] MEDS ORDERED: POTASSIUM CHLORIDE 20 MEQ TAB.PRT.SR PO ONE (09:15)
--- NOTE | 2019-07-24 09:30 | NUR ---
SEEN AND EXAMINED BY DR QUISPE WITH NEW ORDERS.
--- NOTE | 2019-07-24 10:00 | NUR ---
BLOOD CULTURES DONEX2 ORDERED. PT HAS POST OP DRESSING ON HER LEFT UPPER ARM AND C/O PAIN WHEN ARM IS MOVED. GOOD RADIAL PULSES. FOLEYCATHETER INTACT AND DRAINING LARGE AMOUNT OF CLEAR YELLOW URINE.
--- NOTE | 2019-07-24 10:25 | NUR ---
SEEN AND EXAMINED BY DR SMITH WITH NEW ORDERS.
--- NOTE | 2019-07-24 11:00 | NUR ---
INFORMED DR QUISPE ABOUT PT'S DISTENDED AND TENDER ABDOMEN, AND SHE ORDERED CT OF THE ABDOMEN AND PELVIS WITH CONTRAST.
--- NOTE | 2019-07-24 11:05 | NUR ---
SEEN AND EXAMINED BY YAYO DIAZ CONSTRUCTION ADMINISTRATIVE ASSISTANT WITH NEW ORDERS.
--- NOTE | 2019-07-24 11:40 | NUR ---
SEEN AND EXAMINED BY DR LUNDBERG, NO ORDERS MADE.
--- NOTE | 2019-07-24 14:00 | NUR ---
TEMP UP TO 102.8F. COLD SPONGE AND ICE PACK RENDERED AND PT IS MEDICATED WITH TYLENOL 650MG PO.
[2019-07-24] MEDS: MICAFUNGIN SODIUM 100 MG in IV NORMAL SALINE 100 ML IV SCH (14:24)
--- NOTE | 2019-07-24 14:27 | NUR ---
Patient not eating well; she appears to be in distress due to fever. Observed her taking fresh fruit today. Will provide more room temperature and "workgroup leader" foods for now. Addendum: 07/24/19 at [address] Amended: Links added.
--- NOTE | 2019-07-24 14:49 | NUR ---
PHARMACY CLINICAL NOTES ( VANCOMYCIN DOSING) S: 78 YO female; Continue Vancomycin for sepsis, ? PNA, bacteremia. O: BUN/SCR 9/0.7 , WBC 21.7 ,T max 98.3, dosing wt 69 kg , Vanco trough 07/24 @0330: 8.5 A/P : Per today's trough, adjusted regimen to 1gm q12hr for new estimated trough of 16.2, 2nd dose today at 1600. Trough ordered before 4th scheduled dose, due tomorrow at 1530. Will check trough when available and adjust as appropriate. Will follow
[2019-07-24] MEDS ORDERED: IOHEXOL 300MG/ML 100 ML INFUS..BTL ONE (15:10)
[2019-07-24] MEDS ORDERED: SWABABLE VALVE TRANSFER SET EA MC ONE (15:10)
[2019-07-24] MEDS ORDERED: IV NORMAL SALINE 250 ML IV ONE (15:10)
[2019-07-24] MEDS: MORPHINE SULFATE 2 MG/1 ML DISP.SYRIN IV PRN (17:21)
--- NOTE | 2019-07-24 17:30 | NUR ---
pt to ctscan via bed for ct abdomen. TOLERATED WELL.
--- NOTE | 2019-07-24 17:35 | NUR ---
MEDICATED WITH MORPHINE 2 MG SLOW IVP FO C/O PAIN.
--- NOTE | 2019-07-24 19:30 | NUR ---
Received pt. awake, slightly confused & agitated. on o2 @ 4lnc w/ o2 sat of 96%. On neosynephrine drip @ 200mcq/min, and Levophed @ 15mcg/min on teresa picc line. NS @ 100cc/hr. NS tko for ivpb meds on one port. repositioned w/ hob elevated.
[2019-07-24] MEDS: ATORVASTATIN 40 MG TABLET PO SCH (21:09)
[2019-07-24] MEDS: QUETIAPINE FUMARATE 100 MG TABLET PO SCH (21:09)
[2019-07-25] VITALS (94 sets, daily range): BP systolic 65–165; BP diastolic 24–92
[2019-07-25] MEDS: NOREPINEPHRINE BITARTRATE 8 MG in IV DEXTROSE 5% 500 ML IV PRN (02:04)
[2019-07-25] MEDS: IPRATROPIUM BROMIDE 0.5 MG/2.5 ML NEBU NEB SCH ×6 (03:03→22:53)
[2019-07-25] MEDS: ALBUTEROL SULFATE 2.5 MG/ 0.5 ML NEBU NEB SCH ×6 (03:03→22:53)
[2019-07-25] MEDS: MEROPENEM 1 G in IV NORMAL SALINE 100 ML IV SCH ×3 (03:39→19:46)
[2019-07-25] MEDS: VANCOMYCIN IV 1,000 MG in IV DEXTROSE 5% 250 ML IV SCH ×2 (04:01→16:24)
[2019-07-25] MEDS: PHENYLEPHRINE IV 80 MG in IV DEXTROSE 5% 250 ML IV PRN (04:38)
[2019-07-25 05:00] LABS: BASOPHILS # (AUTO) 0.1 K/uL (0.0-8.0); BASOPHILS % (AUTO) 0.3 % (0.0-2.0); EOSINOPHILS % (AUTO) 0.1 % (0.0-7.0); HEMOGLOBIN 9.8 g/dL (10.9-14.3); LYMPHOCYTES # (AUTO) 0.5 K/uL (20.0-40.0); LYMPHOCYTES % (AUTO) 1.7 % (20.5-51.5); MEAN CORPUSCULAR HEMOGLOBIN 29.5 uug (24.7-32.8); MEAN CORPUSCULAR HGB CONC 34 g/dL (32.3-35.6); MEAN CORPUSCULAR VOLUME 87.3 fL (75.5-95.3); MONOCYTES # (AUTO) 1.1 K/uL (2.0-10.0); NEUTROPHILS # (AUTO) 26.8 K/uL (1.8-8.9); NEUTROPHILS % (AUTO) 93.9 % (38.5-71.5); PLATELET COUNT (AUTO) 259 K/uL (179-408); RED BLOOD CELL COUNT(AUTO) 3.33 MIL/uL (3.63-4.92); WHITE BLOOD COUNT (AUTO) 28.6 K/uL (3.8-11.8)
[2019-07-25 05:11] LABS: CREATININE 0.7 mg/dL (0.6-1.3); MAGNESIUM 1.6 mg/dL (1.8-2.4); PHOSPHOROUS 2.4 mg/dL (2.5-4.9)
[2019-07-25 05:18] LABS: POTASSIUM 2.7 mmol/L (3.5-5.1)
[2019-07-25] MEDS: PANTOPRAZOLE SODIUM 40 MG TABLET.DR PO SCH (07:30)
[2019-07-25] MEDS: BUDESONIDE 0.5 MG/2 ML NEBU NEB SCH ×2 (07:48→19:44)
[2019-07-25] MEDS: IV NS 1000 ML 1,000 ML IV PRN (08:07)
[2019-07-25] MEDS ORDERED: MAGNESIUM SULFATE 2 GM in IV DEXTROSE 5% 100 ML IV ONE (08:30)
[2019-07-25] MEDS: MAGNESIUM SULFATE/D5W 100 ML IV SCH ×2 (08:44→09:44)
[2019-07-25] MEDS: POTASSIUM CHLORIDE 50 ML IV SCH ×6 (08:44→14:24)
[2019-07-25] MEDS: DIVALPROEX 250 MG TABLET.DR PO SCH ×3 (08:44→17:04)
[2019-07-25] MEDS: DULOXETINE 60 MG CAPSULE.DR PO SCH (08:44)
--- NOTE | 2019-07-25 09:28 | NUR ---
DOCTOR HAYS IN THE UNIT TO SEE PATIENT. ORDERS PLACED PLEASE REFER TO ORDER HISTORY. PENDING NEW ORDER FOR STOOL CDIFF COLLECTION.
[2019-07-25] MEDS: NOREPINEPHRINE BITARTRATE 16 MG in IV DEXTROSE 5% 500 ML IV PRN (10:04)
[2019-07-25] MEDS: POTASSIUM PHOSPHATE MM 7.5 MMOL in IV DEXTROSE 5% 100 ML IV SCH ×2 (10:54→13:53)
--- NOTE | 2019-07-25 11:00 | NUR ---
DOCTOR JOSSE IN THE UNIT UPDATED WITH REPORT.
--- NOTE | 2019-07-25 11:25 | NUR ---
DOCTOR BRITTANEY IN THE UNIT PLEASE REFER TO ORDER HISTORY FOR NEW ORDERS. WILL KEEP PATIENT NPO FOR NOW UNTIL NEW CONSULTATION FOR SURGERY D/T CT RESULTS COLITIS AND SMALL BOWEL OBSTRUCTION. ELECTROLYTES ORDERS ALREADY INITIATED. FOLLOW UP PER DOCTOR SINGH PENDING AND HOLDING PT FOR NOW PER BRITTANEY.
[2019-07-25] MEDS: MORPHINE SULFATE 2 MG/1 ML DISP.SYRIN IV PRN ×2 (12:03→19:59)
[2019-07-25] MEDS: MICAFUNGIN SODIUM 100 MG in IV NORMAL SALINE 100 ML IV SCH (14:23)
--- NOTE | 2019-07-25 16:05 | NUR ---
PHARMACY CLINICAL NOTES ( VANCOMYCIN DOSING) S: 78 YO female; Continue Vancomycin for sepsis, ? PNA, bacteremia. O: BUN/SCR 5/0.7 , WBC 28.6 ,Temp 98.9 ht 157 cm wt 68 kg vanco trough level on 07/24 at 0330: 8.5 Vanco trough level on 07/25 at 1530: 17.6 A/P : Per today's trough, will continue same dose of vanco 1gm IVPB q12h. Next dose today at 1600. Will monitor renal function & adjust the dose or repeat the level if needed. Will follow
--- NOTE | 2019-07-25 16:46 | NUR ---
DR. BARRIENTOS IN THE UNIT TO SEE PATIENT. NEW CONSULTATION. ORDERED ABDOMINAL SERIES FOR TOMORROW. PLACE PATIENT ON CLEAR LIQUIDS FOR TODAY AND NPO POST MIDNIGHT.
[2019-07-25] MEDS: VANCOMYCIN FOR PO/GT/NG USE PO SCH (17:04)
[2019-07-25] MEDS: HYDROCODONE/APAP 10-325 MG TABLET PO PRN (18:41)
--- NOTE | 2019-07-25 19:30 | NUR ---
Received pt. awake, oriented, and in good spirits. On o2 @ 4lnc w/ o2 sat of 96%. No longer on neosynephrine drip, and Levophed @ 12mcg/min on teresa picc line. NS @ 100cc/hr. NS tko for ivpb meds on one port. Repositioned on right side alleviating pressure on left arm w/ hob elevated.
[2019-07-25] MEDS: IV NORMAL SALINE 250 ML IV PRN (19:51)
[2019-07-25] MEDS: QUETIAPINE FUMARATE 100 MG TABLET PO SCH (21:03)
[2019-07-25] MEDS: ATORVASTATIN 40 MG TABLET PO SCH (21:03)
[2019-07-25] MEDS: METRONIDAZOLE 500 MG/NS 100ML 500 MG in PREMIXED 1 EACH IV SCH (21:59)
[2019-07-26] VITALS (91 sets, daily range): BP systolic 61–173; BP diastolic 22–111
[2019-07-26] MEDS: VANCOMYCIN FOR PO/GT/NG USE PO SCH ×5 (00:12→17:18)
[2019-07-26] MEDS: IV NS 1000 ML 1,000 ML IV PRN ×3 (01:17→23:19)
[2019-07-26] MEDS: ALBUTEROL SULFATE 2.5 MG/ 0.5 ML NEBU NEB SCH ×5 (03:05→20:34)
[2019-07-26] MEDS: IPRATROPIUM BROMIDE 0.5 MG/2.5 ML NEBU NEB SCH ×5 (03:05→20:33)
[2019-07-26] MEDS: VANCOMYCIN IV 1,000 MG in IV DEXTROSE 5% 250 ML IV SCH ×2 (03:44→20:47)
[2019-07-26] MEDS: MEROPENEM 1 G in IV NORMAL SALINE 100 ML IV SCH ×3 (03:44→20:47)
--- NOTE | 2019-07-26 04:16 | NUR ---
* Maintains vital signs WNL * Evidences no purulent drainage from wounds, incisions, and tubes * Maintains optimal lab values Addendum: 07/26/19 at 0417 by EAMON DAMON RN Amended: Links added. Addendum: 07/26/19 at 0418 by EAMON DAMON RN Amended: Links added.
--- NOTE | 2019-07-26 04:16 | NUR ---
patient lab work and vs being monitored , and patient is on antibiotics Addendum: 07/26/19 at 0416 by EAMON DAMON RN Amended: Kalyani added. Addendum: 07/26/19 at 0417 by EAMON DAMON RN Amended: Links added. Addendum: 07/26/19 at 0418 by EAMON DAMON RN Amended: Links added.
--- NOTE | 2019-07-26 04:18 | NUR ---
patient is being every 2 hours , keep the patient dry and clean , special mattress is in place Addendum: 07/26/19 at 0418 by EAMON DAMON RN Amended: Links added.
[2019-07-26] MEDS ORDERED: NOREPINEPHRINE BITARTRATE 4 MG/4 ML VIAL IV ONE (04:28)
[2019-07-26] MEDS: NOREPINEPHRINE BITARTRATE 16 MG in IV DEXTROSE 5% 500 ML IV PRN ×2 (04:50→18:08)
[2019-07-26 05:28] LABS: BASOPHILS % (AUTO) 0.2 % (0.0-2.0); EOSINOPHILS # (AUTO) 0.1 K/uL (0.0-0.7); EOSINOPHILS % (AUTO) 0.7 % (0.0-7.0); HEMATOCRIT 23.7 % (31.2-41.9); HEMOGLOBIN 7.9 g/dL (10.9-14.3); LYMPHOCYTES # (AUTO) 0.3 K/uL (20.0-40.0); LYMPHOCYTES % (AUTO) 1.7 % (20.5-51.5); MEAN CORPUSCULAR HEMOGLOBIN 29.6 uug (24.7-32.8); MEAN CORPUSCULAR HGB CONC 34 g/dL (32.3-35.6); MEAN CORPUSCULAR VOLUME 88.1 fL (75.5-95.3); MONOCYTES # (AUTO) 0.6 K/uL (2.0-10.0); MONOCYTES % (AUTO) 2.8 % (0.0-11.0); NEUTROPHILS # (AUTO) 19.3 K/uL (1.8-8.9); NEUTROPHILS % (AUTO) 94.6 % (38.5-71.5); PLATELET COUNT (AUTO) 239 K/uL (179-408); RED BLOOD CELL COUNT(AUTO) 2.69 MIL/uL (3.63-4.92); WHITE BLOOD COUNT (AUTO) 20.4 K/uL (3.8-11.8)
[2019-07-26 05:54] LABS: CREATININE 0.9 mg/dL (0.6-1.3); PHOSPHOROUS 3.7 mg/dL (2.5-4.9); POTASSIUM 3.8 mmol/L (3.5-5.1)
[2019-07-26 06:13] LABS: *BILIRUBIN,URIN 1+ (NEGATIVE); *BLOOD, URINE NEGATIVE (NEGATIVE); *CLARITY,URINE SLIGHTLY CLOUDY (CLEAR); *COLOR,URINE YELLOW (YELLOW); *KETONES,URINE TRACE (NEGATIVE); *UROBILINOGEN,URINE 0.2 E.U./dl (NORMAL); LEUKOCYTE ESTERASE ,URINE NEGATIVE (NEGATIVE); NITRITE, URINE NEGATIVE (NEGATIVE); PH,URINE 5.5 (5.0-8.0); UGLUCOSE NEGATIVE (NEGATIVE)
[2019-07-26 06:15] LABS: *OCCULT BLOOD STOOL NEGATIVE (NEGATIVE)
[2019-07-26] MEDS: METRONIDAZOLE 500 MG/NS 100ML 500 MG in PREMIXED 1 EACH IV SCH ×3 (06:15→22:14)
[2019-07-26] MEDS: PANTOPRAZOLE SODIUM 40 MG TABLET.DR PO SCH (06:18)
[2019-07-26 06:25] LABS: BACTERIA,URINE 1+ /HPF (NONE SEEN); RBC,URINE NONE SEEN /HPF (0-3); SQUAMOUS EPITHELIAL CELL,UR MANY /HPF (NONE SEEN); WBC,URINE NONE SEEN /HPF (0-3)
[2019-07-26 06:26] LABS: MUCUS,URINE MANY /LPF (0-FEW)
[2019-07-26] MEDS: BUDESONIDE 0.5 MG/2 ML NEBU NEB SCH ×2 (07:09→20:33)
--- NOTE | 2019-07-26 07:30 | NUR ---
RECIEVED PT IN BED SOUND ASLEEP. AROUSABLE TO CALL. PT KEPT NPO FOR THE BOWEL SERIES. HR -SR TO ST, NO C/O CHEST PAINS. STILL ON LEVOPHED DRIP AT 8MCG/MIN VIA RIGHT UPPER ARM. SBP IS STILL UP AND DOWN AND ERRATIC. TEMP IS 99.2F, DRESSING ON HER LEFT UPPER ARM IS IN PLACE, DRY AND NO BLEEDING NOTED. AWAITING FOR THE SURGEON TO COME AND TAKE A LOOK AT THE INSCISSION SITE AND DO THE DRESSING CHANGE.
--- NOTE | 2019-07-26 08:00 | NUR ---
PT HAS A HUGE AMOUNT OF GREENISH LIQUID STOOLS. CLEANED UP.
[2019-07-26] MEDS ORDERED: DIATR MEGLU/DIATRIZOATE SODIUM 30 ML SOLUTION ONE (08:44)
[2019-07-26] MEDS: DIVALPROEX 250 MG TABLET.DR PO SCH ×5 (09:00→17:00)
--- NOTE | 2019-07-26 09:00 | NUR ---
ORAL MEDS HELD BECAUSE PT IS NPO FOR SMALL BOWEL SERIES.
[2019-07-26] MEDS: DULOXETINE 60 MG CAPSULE.DR PO SCH (09:29)
--- NOTE | 2019-07-26 10:15 | NUR ---
SEEN AND EXAMINED BY DR HAYS WITH NEW ORDERS. PT ON O2 4L NC AND SATURATION BETWEEN 96-100%. BOWEL SERIES IN PROGRRESS AT THIS TIME.
--- NOTE | 2019-07-26 13:30 | NUR ---
CALLED UP DR SINGH'S OFFICE AND LEFT A MESSAGE FOR A CALL BACK.
[2019-07-26] MEDS: MICAFUNGIN SODIUM 100 MG in IV NORMAL SALINE 100 ML IV SCH (13:46)
--- NOTE | 2019-07-26 14:00 | NUR ---
SEEN AND EXAMINED BY DR MARTINS AND INFORMED OF BLOOD CX RESULTS..
--- NOTE | 2019-07-26 14:00 | NUR ---
BOWEL SERIES FOLLOW THRU LAST ABD XRAY DONE AT THIS TIME.
--- NOTE | 2019-07-26 16:05 | NUR ---
PHARMACY CLINICAL NOTES ( VANCOMYCIN DOSING) S: 78 YO female; Continue Vancomycin for sepsis, ? PNA, bacteremia. O: BUN/SCR 11/0.9 , WBC 20.4 ,Temp 98.6 ht 157 cm wt 68 kg vanco trough level on 07/24 at 0330: 8.5 Vanco trough level on 07/25 at 1530: 17.6 Vanco trough level on 07/26 at 1530: 22.7 A/P : Re-ordered vanco trough level today again, due to slight change to BUN/SRCR. Since vanco trough is 22.7 mcg/ml, will change dose to vanco 1gm IVPB q15h for expected vanco trough level of 16 mcg/ml at steady state. 1st dose tonight at 2100. Will monitor renal function carefully & adjust the dose or repeat the level if needed. Will follow
[2019-07-26] MEDS: MORPHINE SULFATE 2 MG/1 ML DISP.SYRIN IV PRN (19:07)
--- NOTE | 2019-07-26 19:45 | NUR ---
turned and reposition patient ,elevated upper and lower extremities with pillows . offloaded back with pillow . heels off the bed ,SCDS used to bilateral lower extremities . hob up at 30 degrees 02 nasal cannula at 3l/min RR 16 to 18.Levophed drip in progress to keeps sbp >90 and map of 65 v/s done q15 minutes . denies pain at this time .left shoulder dressing CDI arm sling used .good CMS .F/C TO BSD . SR TO ST 105 not sustained denies chest pain or chest discomfort .patient on and off confused and said go away ,wants the lights off call light placed with in reach .advised to call for assistance and help and not to get oob with out assistance .
[2019-07-26] MEDS: QUETIAPINE FUMARATE 100 MG TABLET PO SCH (20:47)
[2019-07-26] MEDS: ATORVASTATIN 40 MG TABLET PO SCH (20:49)
[2019-07-26] MEDS: HYDROCODONE/APAP 10-325 MG TABLET PO PRN (20:57)
--- NOTE | 2019-07-26 20:57 | NUR ---
patient verbalized left shoulder pain .given norco po.01/22
--- NOTE | 2019-07-26 21:12 | NUR ---
patient daughter came and visited patient . updated with plans of treatment .
--- NOTE | 2019-07-26 22:30 | NUR ---
in bed sleeping no s/s of pain .v/s wnl . no respiratory distress RR 14 TO 16 .
[2019-07-27] VITALS (91 sets, daily range): BP systolic 70–152; BP diastolic 36–87
[2019-07-27] MEDS: ALBUTEROL SULFATE 2.5 MG/ 0.5 ML NEBU NEB SCH ×7 (00:13→22:34)
[2019-07-27] MEDS: IPRATROPIUM BROMIDE 0.5 MG/2.5 ML NEBU NEB SCH ×7 (00:13→22:34)
[2019-07-27] MEDS: VANCOMYCIN FOR PO/GT/NG USE PO SCH ×4 (00:56→18:24)
--- NOTE | 2019-07-27 01:00 | NUR ---
patient called and requesting for pain medication as per patient her left shoulder hurts 01/22 given morphine ivp , will continue to monitor pain levels ,levophed drip now at 10 mcg/min bp 110/62 hr 102
[2019-07-27] MEDS: MORPHINE SULFATE 2 MG/1 ML DISP.SYRIN IV PRN ×2 (01:04→14:33)
--- NOTE | 2019-07-27 02:00 | NUR ---
patient verbalized she wants to eat ,given chocolate pudding ,assisted patient ,hob up ,aspiration precaution observed.
[2019-07-27] MEDS: MEROPENEM 1 G in IV NORMAL SALINE 100 ML IV SCH ×3 (03:23→19:41)
--- NOTE | 2019-07-27 04:30 | NUR ---
morning care done ,patient had bm x1 moderate in amt ,soft mucoid yellowish in color,perianal care applied z guard .Sánchez care done,changed soiled linens and gown ,left arm sling used ,post op left shoulder dressing CDI .oral care done .
[2019-07-27 04:58] LABS: BASOPHILS % (AUTO) 0.2 % (0.0-2.0); EOSINOPHILS # (AUTO) 0.5 K/uL (0.0-0.7); EOSINOPHILS % (AUTO) 3.1 % (0.0-7.0); HEMATOCRIT 23.4 % (31.2-41.9); HEMOGLOBIN 7.7 g/dL (10.9-14.3); LYMPHOCYTES % (AUTO) 6.3 % (20.5-51.5); MEAN CORPUSCULAR HEMOGLOBIN 29.1 uug (24.7-32.8); MEAN CORPUSCULAR HGB CONC 33 g/dL (32.3-35.6); MEAN CORPUSCULAR VOLUME 88.4 fL (75.5-95.3); MONOCYTES % (AUTO) 6.8 % (0.0-11.0); NEUTROPHILS # (AUTO) 12.9 K/uL (1.8-8.9); NEUTROPHILS % (AUTO) 83.6 % (38.5-71.5); PLATELET COUNT (AUTO) 259 K/uL (179-408); RED BLOOD CELL COUNT(AUTO) 2.64 MIL/uL (3.63-4.92); WHITE BLOOD COUNT (AUTO) 15.4 K/uL (3.8-11.8)
[2019-07-27 05:05] LABS: PHOSPHOROUS 3.2 mg/dL (2.5-4.9); POTASSIUM 3.3 mmol/L (3.5-5.1)
[2019-07-27] MEDS: METRONIDAZOLE 500 MG/NS 100ML 500 MG in PREMIXED 1 EACH IV SCH ×3 (05:16→21:45)
[2019-07-27 05:29] LABS: BILIRUBIN,TOTAL 0.3 mg/dL (0.2-1.0); CREATININE 0.8 mg/dL (0.6-1.3); MAGNESIUM 1.9 mg/dL (1.8-2.4); TOTAL PROTEIN, SERUM 4.9 g/dL (6.4-8.2)
[2019-07-27] MEDS: PANTOPRAZOLE SODIUM 40 MG TABLET.DR PO SCH (06:16)
[2019-07-27] MEDS: IV NORMAL SALINE 250 ML IV PRN (06:27)
[2019-07-27] MEDS: BUDESONIDE 0.5 MG/2 ML NEBU NEB SCH ×2 (07:30→19:50)
--- NOTE | 2019-07-27 07:30 | NUR ---
RECIEVED PT LYING IN BED,SOUND ASLEEP BUT EASILY AROUSABLE TO TOUCH AND NAME CALL. ORIENTED TO HER NAME AND PLACE. PT IS GENERALLY WEAK AND HAS VERY LOW TOLERANCE TO PAIN. HR MOSTLY RUNNING ST WITH OCCASSIONAL TO FREQUENT PVC'S AND PAC'S. DENIES ANY CP. AFEBRILE. PT ON LEVOPHED DRIP AT 10MCG/MIN. SBP IS MOSTLY IN THE LOW SIDE. O2 ON 3L NC . SATURATION BETWEEN 93-98%.
[2019-07-27] MEDS ORDERED: FUROSEMIDE 20 MG/2 ML VIAL IV ONE (08:45)
[2019-07-27] MEDS ORDERED: POTASSIUM CHLORIDE 20 MEQ TAB.PRT.SR PO ONE (08:45)
[2019-07-27] MEDS: DIVALPROEX 250 MG TABLET.DR PO SCH ×3 (09:05→16:33)
[2019-07-27] MEDS: DULOXETINE 60 MG CAPSULE.DR PO SCH (09:05)
[2019-07-27] MEDS: PROTEIN SUPPLEMENT (PROSTAT) 30 ML LIQUID PO SCH ×3 (09:07→18:23)
[2019-07-27] MEDS: IV NS 1000 ML 1,000 ML IV PRN ×2 (09:42→19:52)
--- NOTE | 2019-07-27 10:46 | NUR ---
PHARMACY CLINICAL NOTES ( VANCOMYCIN DOSING) S: 78 YO female; Continue Vancomycin for sepsis, ? PNA, bacteremia. O: BUN/SCR 12/0.8 , WBC 15.4 ,Temp 98.6 ht 157 cm wt 68 kg vanco trough level on 07/24 at 0330: 8.5 Vanco trough level on 07/25 at 1530: 17.6 Vanco trough level on 07/26 at 1530: 22.7 Vanco trough level due 07/28 @1730 A/P : Will continue adjusted regimen of vanco 1gm IVPB q15h for expected vanco trough level of 16 mcg/ml at steady state. 2nd dose today at 1200. Trough ordered and due tomorrow at 1730. Will check level at that time and adjust as needed. Will follow
[2019-07-27] MEDS: NOREPINEPHRINE BITARTRATE 16 MG in IV DEXTROSE 5% 500 ML IV PRN (10:54)
[2019-07-27] MEDS: VANCOMYCIN IV 1,000 MG in IV DEXTROSE 5% 250 ML IV SCH (11:42)
[2019-07-27 12:56] LABS: IRON, SERUM < 5 ug/dL (50-175)
--- NOTE | 2019-07-27 13:00 | NUR ---
WOUND CARE NURSE CAME IN TO ASSESS THE INCISSION DRESSING ORDERED. UNABLE TO DO IT BECAUSE ITS A SURGICAL CASE.
--- NOTE | 2019-07-27 13:41 | NUR ---
WOUND CARE CONSULT: PT SEEN FOR SKIN ASSESSMENT AND NOTED TO HAVE LEFT SHOULDER SURGICAL DRESSING WHICH IS CLEAN, DRY AND INTACT. DEFER TO ORTHO SURGEON FOR SURGICAL SITE. DISCUSSED WITH NURSING STAFF AND SHINGLE CARRIER. SHINGLE CARRIER TO SPEAK WITH PMD. ALL SKIN PROTECTION MEASURES IN PLACE AND DISCUSSED WITH NURSING STAFF. PT ON FIRST STEP CIRRUS LOW AIRLOSS MATTRESS. PT YELLS OUT "LEAVE ME ALONE" WHEN TOUCHED. WILL SEE PRN. IN AGREEMENT WITH PLAN OF CARE.
[2019-07-27] MEDS: MICAFUNGIN SODIUM 100 MG in IV NORMAL SALINE 100 ML IV SCH (13:47)
--- NOTE | 2019-07-27 14:00 | NUR ---
CALLED UP DR SINGH'S OFFICE AND SPOKE WITH PRINCE, TO FOLLOW UP CONCERDING DRESSING CHANGE ON THE LEFT HUMERUS. STATED THAT SHE WILL CONTINUE TO FOLLOW UP WITH MD.
--- NOTE | 2019-07-27 15:00 | NUR ---
SEEN AND EXAMINED BY DR HAYS WITH NEW ORDERS.
[2019-07-27] MEDS: HYDROCODONE/APAP 10-325 MG TABLET PO PRN (16:33)
--- NOTE | 2019-07-27 17:30 | NUR ---
DR SINGH CALLED BACK AND MADE SOME ORDER FOR DRESSING CHANGE .
--- NOTE | 2019-07-27 17:45 | NUR ---
NOTIFIED DR SINGH THAT AQUACEL IS NOT AVAILABLE. CHANGED TO XEROFORM.
--- NOTE | 2019-07-27 18:20 | NUR ---
TEMP RECHECKED RECTALLY AND ITS 101.6F. HR STILL TACHYCARDIC. MEDICATED WITH TYLENOL 650MG PO FOR FEVER.
[2019-07-27] MEDS: ACETAMINOPHEN 325 MG TABLET PO PRN (18:23)
--- NOTE | 2019-07-27 18:30 | NUR ---
PM CARE RENDERED. DRESSING CHANGED ON THE LEFT HUMERUS WITH XEROFORM AND COVERED WITH 4X4 GAUZE AND ABD PADS PER DR SINGH'S ORDER.
--- NOTE | 2019-07-27 20:00 | NUR ---
RECEIVED PT AWAKE, VERBALLY RESPONSIVE W/ PERIODS OF CONFUSION & DISORIENTATION. ON O2 @ 3LNC W/ O2 SAT OF 96%.ON LEVOPHED DRIP @ 14MCQ/MIN VIA PICC LINE ON DONNA. IVF NS 100CC/HR. C-SCOPE S-TACH. AFEBRILE. REPOSITIONED W/ HOB ELEVATED.
[2019-07-27] MEDS: QUETIAPINE FUMARATE 100 MG TABLET PO SCH (20:35)
--- NOTE | 2019-07-27 22:00 | NUR ---
HS CARE DONE. REFUSED ORAL CARE. REPOSITIONED W/ HOB ELEVATED.
[2019-07-28] VITALS (98 sets, daily range): BP systolic 73–145; BP diastolic 43–90
--- NOTE | 2019-07-28 | NUR ---
ASKING FOR FOOD, ATE WELL NO DIFFICULTY OF SWALLOWING NOTED.
[2019-07-28] MEDS: VANCOMYCIN FOR PO/GT/NG USE PO SCH ×4 (00:26→17:02)
[2019-07-28] MEDS: IPRATROPIUM BROMIDE 0.5 MG/2.5 ML NEBU NEB SCH ×6 (02:47→23:51)
[2019-07-28] MEDS: ALBUTEROL SULFATE 2.5 MG/ 0.5 ML NEBU NEB SCH ×6 (02:47→23:51)
[2019-07-28] MEDS: VANCOMYCIN IV 1,000 MG in IV DEXTROSE 5% 250 ML IV SCH (03:03)
[2019-07-28] MEDS: MEROPENEM 1 G in IV NORMAL SALINE 100 ML IV SCH ×2 (03:30→10:49)
--- NOTE | 2019-07-28 04:30 | NUR ---
AM CARE DONE. REFUSED ORAL CARE AGAIN. REPOSITIONED ON HER SIDE W/ HOB ELEVATED.
[2019-07-28 05:06] LABS: BASOPHILS # (AUTO) 0.1 K/uL (0.0-8.0); BASOPHILS % (AUTO) 0.5 % (0.0-2.0); EOSINOPHILS # (AUTO) 0.4 K/uL (0.0-0.7); EOSINOPHILS % (AUTO) 3.6 % (0.0-7.0); HEMATOCRIT 24.1 % (31.2-41.9); HEMOGLOBIN 7.9 g/dL (10.9-14.3); LYMPHOCYTES # (AUTO) 0.9 K/uL (20.0-40.0); LYMPHOCYTES % (AUTO) 7.4 % (20.5-51.5); MEAN CORPUSCULAR HEMOGLOBIN 29.1 uug (24.7-32.8); MEAN CORPUSCULAR HGB CONC 33 g/dL (32.3-35.6); MEAN CORPUSCULAR VOLUME 88.4 fL (75.5-95.3); MONOCYTES # (AUTO) 0.7 K/uL (2.0-10.0); MONOCYTES % (AUTO) 5.6 % (0.0-11.0); NEUTROPHILS # (AUTO) 9.6 K/uL (1.8-8.9); NEUTROPHILS % (AUTO) 82.9 % (38.5-71.5); PLATELET COUNT (AUTO) 292 K/uL (179-408); RED BLOOD CELL COUNT(AUTO) 2.72 MIL/uL (3.63-4.92); WHITE BLOOD COUNT (AUTO) 11.6 K/uL (3.8-11.8)
[2019-07-28 05:14] LABS: CREATININE 0.8 mg/dL (0.6-1.3); MAGNESIUM 1.4 mg/dL (1.8-2.4); PHOSPHOROUS 3.5 mg/dL (2.5-4.9); POTASSIUM 3.4 mmol/L (3.5-5.1)
[2019-07-28] MEDS: IV NORMAL SALINE 250 ML IV PRN (05:33)
[2019-07-28] MEDS: METRONIDAZOLE 500 MG/NS 100ML 500 MG in PREMIXED 1 EACH IV SCH ×3 (05:37→23:08)
--- NOTE | 2019-07-28 06:00 | NUR ---
RESTING QUITELY. NOT IN ANY DISTRESS.
[2019-07-28] MEDS: NOREPINEPHRINE BITARTRATE 16 MG in IV DEXTROSE 5% 500 ML IV PRN ×2 (06:02→23:08)
[2019-07-28] MEDS: PANTOPRAZOLE SODIUM 40 MG TABLET.DR PO SCH (06:18)
--- NOTE | 2019-07-28 06:45 | NUR ---
BP-73/46 LEVOPHED HOLD FEW MINS., CHANGING TUBING.
[2019-07-28] MEDS: BUDESONIDE 0.5 MG/2 ML NEBU NEB SCH ×2 (07:00→19:52)
[2019-07-28] MEDS: DIVALPROEX 250 MG TABLET.DR PO SCH ×3 (09:19→17:05)
[2019-07-28] MEDS: PROTEIN SUPPLEMENT (PROSTAT) 30 ML LIQUID PO SCH ×3 (09:21→17:00)
[2019-07-28] MEDS: DULOXETINE 60 MG CAPSULE.DR PO SCH (09:23)
[2019-07-28] MEDS: IV NS 1000 ML 1,000 ML IV PRN (09:43)
--- NOTE | 2019-07-28 09:50 | NUR ---
PHARMACY CLINICAL NOTES ( VANCOMYCIN DOSING) S: 78 YO female; Continue Vancomycin for sepsis, ? PNA, bacteremia. O: BUN/SCR 16/0.8 , WBC 11.6 ,Temp 98.5 ht 157 cm wt 68 kg vanco trough level on 07/24 at 0330: 8.5 Vanco trough level on 07/25 at 1530: 17.6 Vanco trough level on 07/26 at 1530: 22.7 Vanco trough level due 07/28 @1730 A/P : Will continue same regimen of vanco 1gm IVPB q15h for today. 3rd dose today at 0300. Trough ordered and due today at 1730. Will check level at that time and adjust as needed. Will follow
[2019-07-28] MEDS: POTASSIUM CHLORIDE 20 MEQ POWDER PACKET PO ONE ×2 (10:00→10:47)
[2019-07-28] MEDS: MAGNESIUM SULFATE/D5W 100 ML IV SCH ×4 (10:48→14:26)
[2019-07-28] MEDS: POTASSIUM CHLORIDE 50 ML IV SCH ×4 (14:07→16:54)
[2019-07-28] MEDS: SOD FERRIC GLUC COMPLX/SUCROSE 125 MG in IV NORMAL SALINE 100 ML IV SCH (14:09)
--- NOTE | 2019-07-28 19:20 | NUR ---
Received pt. awake, oriented, and in good spirits. On o2 @ 3L nc w/ o2 sat of 94%. Levophed @ 2mcg/min on teresa picc line. NS @ 100cc/hr. NS tko for ivpb meds on one port. Repositioned on right side alleviating pressure on left arm w/ hob elevated. On contact isolation for C. Diff. Dressing on left shoulder recently changed, no drainage noted on bandage. site clean.
[2019-07-28] MEDS: MORPHINE SULFATE 2 MG/1 ML DISP.SYRIN IV PRN (20:45)
[2019-07-28] MEDS: Z GUARD REMEDY PASTE 57 GM TUBE TOP PRN (21:37)
[2019-07-29] VITALS (67 sets, daily range): BP systolic 74–144; BP diastolic 28–84
--- NOTE | 2019-07-29 | NUR ---
Titrated off pressors. BP remaining stable with SBP >115 and a MAP in the 80s
[2019-07-29] MEDS: VANCOMYCIN FOR PO/GT/NG USE PO SCH ×5 (00:53→23:56)
[2019-07-29] MEDS: IV NS 1000 ML 1,000 ML IV PRN ×3 (01:24→23:02)
[2019-07-29] MEDS: IPRATROPIUM BROMIDE 0.5 MG/2.5 ML NEBU NEB SCH ×6 (02:15→23:36)
[2019-07-29] MEDS: ALBUTEROL SULFATE 2.5 MG/ 0.5 ML NEBU NEB SCH ×6 (02:16→23:36)
[2019-07-29] MEDS: MORPHINE SULFATE 2 MG/1 ML DISP.SYRIN IV PRN (03:18)
[2019-07-29 04:50] LABS: BASOPHILS % (AUTO) 0.7 % (0.0-2.0); EOSINOPHILS # (AUTO) 0.4 K/uL (0.0-0.7); HEMATOCRIT 22.4 % (31.2-41.9); HEMOGLOBIN 7.6 g/dL (10.9-14.3); LYMPHOCYTES # (AUTO) 0.8 K/uL (20.0-40.0); LYMPHOCYTES % (AUTO) 11.3 % (20.5-51.5); MEAN CORPUSCULAR HEMOGLOBIN 29.6 uug (24.7-32.8); MEAN CORPUSCULAR HGB CONC 34 g/dL (32.3-35.6); MEAN CORPUSCULAR VOLUME 87.2 fL (75.5-95.3); MONOCYTES # (AUTO) 0.5 K/uL (2.0-10.0); MONOCYTES % (AUTO) 8.2 % (0.0-11.0); NEUTROPHILS # (AUTO) 4.9 K/uL (1.8-8.9); NEUTROPHILS % (AUTO) 73.8 % (38.5-71.5); PLATELET COUNT (AUTO) 313 K/uL (179-408); RED BLOOD CELL COUNT(AUTO) 2.57 MIL/uL (3.63-4.92); WHITE BLOOD COUNT (AUTO) 6.6 K/uL (3.8-11.8)
[2019-07-29 05:02] LABS: CREATININE 0.7 mg/dL (0.6-1.3); PHOSPHOROUS 2.4 mg/dL (2.5-4.9); POTASSIUM 3.6 mmol/L (3.5-5.1)
[2019-07-29] MEDS: PANTOPRAZOLE SODIUM 40 MG TABLET.DR PO SCH (06:00)
[2019-07-29] MEDS: METRONIDAZOLE 500 MG/NS 100ML 500 MG in PREMIXED 1 EACH IV SCH ×3 (06:00→21:00)
--- NOTE | 2019-07-29 06:54 | NUR ---
Patient remained stable throughout the night without pressors. BP steadily increased to 139/70 MAP of 98. Labs WNL, chemistry panel WNL. Urine output 1,450mL during shift. Appetite good, ate 50% of dinner. Recommend patient be downgraded.
[2019-07-29] MEDS: IV NORMAL SALINE 250 ML IV PRN (07:12)
[2019-07-29] MEDS: BUDESONIDE 0.5 MG/2 ML NEBU NEB SCH ×2 (07:26→20:18)
--- NOTE | 2019-07-29 08:00 | NUR ---
Pt. A/A/O,cooperative,denies any pain @ time, was assisted with dinner.
[2019-07-29] MEDS: DULOXETINE 60 MG CAPSULE.DR PO SCH (08:39)
[2019-07-29] MEDS: DIVALPROEX 250 MG TABLET.DR PO SCH ×3 (08:39→17:40)
[2019-07-29] MEDS: PROTEIN SUPPLEMENT (PROSTAT) 30 ML LIQUID PO SCH ×3 (08:39→17:40)
[2019-07-29] MEDS: SOD FERRIC GLUC COMPLX/SUCROSE 125 MG in IV NORMAL SALINE 100 ML IV SCH (14:16)
--- NOTE | 2019-07-29 14:40 | NUR ---
Pt. was seen by with new orders.
--- NOTE | 2019-07-29 15:03 | NUR ---
Pt.was seen by PT.
[2019-07-29] MEDS: POTASSIUM PHOSPHATE MM 7.5 MMOL in IV DEXTROSE 5% 100 ML IV SCH ×2 (15:15→17:41)
--- NOTE | 2019-07-29 19:45 | NUR ---
Received pt HOB elevated, on specialty mattress. Contact isolation for CDIFF observed. Pt awake, AxO x3. Denies pain, SOB or discomfort. Pt on 4L NC with O2 sats up to 96%. No acute distress noted. SR on monitor. Pt with DONNA PICC running LEVOPHED 1 mcg/min and NS at 100cc/hr. S/p left arm surgery with sling. Offered food and fluids, but pt refused. F/C in place. VSS, afebrile. Safety and seizure precautions maintained. Continue to monitor. Continue plan of care.
[2019-07-29] MEDS: NOREPINEPHRINE BITARTRATE 16 MG in IV DEXTROSE 5% 500 ML IV PRN (21:01)
--- NOTE | 2019-07-29 21:45 | NUR ---
Daughter (Jeannette) at bedside.
[2019-07-30] VITALS (32 sets, daily range): BP systolic 111–162; BP diastolic 54–82
[2019-07-30] MEDS: IPRATROPIUM BROMIDE 0.5 MG/2.5 ML NEBU NEB SCH ×6 (03:30→22:32)
[2019-07-30] MEDS: ALBUTEROL SULFATE 2.5 MG/ 0.5 ML NEBU NEB SCH ×6 (03:30→22:32)
[2019-07-30] MEDS: VANCOMYCIN FOR PO/GT/NG USE PO SCH ×5 (05:09→19:58)
[2019-07-30 05:29] LABS: BASOPHILS % (AUTO) 0.7 % (0.0-2.0); EOSINOPHILS # (AUTO) 0.4 K/uL (0.0-0.7); EOSINOPHILS % (AUTO) 5.9 % (0.0-7.0); HEMATOCRIT 26.4 % (31.2-41.9); HEMOGLOBIN 8.9 g/dL (10.9-14.3); LYMPHOCYTES # (AUTO) 0.9 K/uL (20.0-40.0); LYMPHOCYTES % (AUTO) 13.4 % (20.5-51.5); MEAN CORPUSCULAR HEMOGLOBIN 29.4 uug (24.7-32.8); MEAN CORPUSCULAR HGB CONC 34 g/dL (32.3-35.6); MEAN CORPUSCULAR VOLUME 87.4 fL (75.5-95.3); MONOCYTES # (AUTO) 0.7 K/uL (2.0-10.0); MONOCYTES % (AUTO) 10.1 % (0.0-11.0); NEUTROPHILS # (AUTO) 4.5 K/uL (1.8-8.9); NEUTROPHILS % (AUTO) 69.9 % (38.5-71.5); PLATELET COUNT (AUTO) 431 K/uL (179-408); RED BLOOD CELL COUNT(AUTO) 3.02 MIL/uL (3.63-4.92); WHITE BLOOD COUNT (AUTO) 6.4 K/uL (3.8-11.8)
--- NOTE | 2019-07-30 05:47 | NUR ---
Pt off levophed at this time. VSS, no desats noted. Pt denies pain, SOB or discomfort. AM care rendered. Dressing clean and intact. Pt turned and repositioned. Pt refused Vanco PO despite discussing importance, risks and benefits. Pt verbalizes understanding. Safety and seizure precautions maintained. Contact isolation observed. Will continue plan of care.
[2019-07-30 05:53] LABS: BILIRUBIN,TOTAL 0.2 mg/dL (0.2-1.0); CREATININE 0.6 mg/dL (0.6-1.3); MAGNESIUM 1.7 mg/dL (1.8-2.4); PHOSPHOROUS 3.2 mg/dL (2.5-4.9); POTASSIUM 3.3 mmol/L (3.5-5.1)
[2019-07-30] MEDS: METRONIDAZOLE 500 MG/NS 100ML 500 MG in PREMIXED 1 EACH IV SCH ×3 (06:16→21:47)
[2019-07-30] MEDS: IV NORMAL SALINE 250 ML IV PRN (06:48)
[2019-07-30] MEDS: BUDESONIDE 0.5 MG/2 ML NEBU NEB SCH ×3 (07:30→19:12)
[2019-07-30] MEDS: PANTOPRAZOLE SODIUM 40 MG TABLET.DR PO SCH (07:38)
[2019-07-30] MEDS: PROTEIN SUPPLEMENT (PROSTAT) 30 ML LIQUID PO SCH ×3 (08:00→17:00)
[2019-07-30] MEDS: DIVALPROEX 250 MG TABLET.DR PO SCH ×3 (08:27→17:31)
[2019-07-30] MEDS: DULOXETINE 60 MG CAPSULE.DR PO SCH (08:27)
[2019-07-30] MEDS: IV NS 1000 ML 1,000 ML IV PRN ×2 (08:28→18:19)
--- NOTE | 2019-07-30 09:49 | NUR ---
Patient worked with PT tolerated well at this time. Patient had 1 BM at this time.
--- NOTE | 2019-07-30 09:50 | NUR ---
DOCTOR HAYS IN THE UNIT TO SEE PATIENT. REPORT GIVEN. PLEASE REFER TO ORDER HISTORY FOR NEW ORDERS.
[2019-07-30] MEDS ORDERED: POTASSIUM CHLORIDE 20 MEQ TAB.PRT.SR PO ONE (10:15)
[2019-07-30] MEDS: MAGNESIUM SULFATE/D5W 100 ML IV SCH ×2 (10:29→12:11)
--- NOTE | 2019-07-30 12:00 | NUR ---
Mary Lou COURT ADMINISTRATOR in the unit to see patient. Informed that the patient refuses the vancomycin. patient can take other oral pill form medication but does not tolerate vancomycin and refuses it.
[2019-07-30] MEDS: MORPHINE SULFATE 2 MG/1 ML DISP.SYRIN IV PRN (16:43)
--- NOTE | 2019-07-30 18:00 | NUR ---
DOCTOR TANI IN THE UNIT UPDATED.PATIENT MAY DOWNGRADE TO TELE
[2019-07-30] MEDS ORDERED: MORPHINE SULFATE 2 MG/1 ML DISP.SYRIN IV PRN (20:15)
[2019-07-30] MEDS ORDERED: QUETIAPINE FUMARATE 100 MG TABLET ONE (20:50)
[2019-07-30] MEDS ORDERED: QUETIAPINE FUMARATE 25 MG TABLET ONE (20:51)
[2019-07-30] MEDS: QUETIAPINE FUMARATE 100 MG TABLET PO SCH (21:05)
[2019-07-30] MEDS: ZOLPIDEM 5 MG TABLET PO SCH (21:06)
[2019-07-31 00:01] VITALS: BP 107/61
[2019-07-31] MEDS: ALBUTEROL SULFATE 2.5 MG/ 0.5 ML NEBU NEB SCH ×6 (03:21→23:30)
[2019-07-31] MEDS: IPRATROPIUM BROMIDE 0.5 MG/2.5 ML NEBU NEB SCH ×6 (03:21→23:30)
[2019-07-31 04:00] VITALS: BP 93/51
[2019-07-31] MEDS: IV NS 1000 ML 1,000 ML IV PRN ×2 (05:15→16:53)
[2019-07-31] MEDS: METRONIDAZOLE 500 MG/NS 100ML 500 MG in PREMIXED 1 EACH IV SCH ×3 (05:39→21:20)
[2019-07-31] MEDS: IV NORMAL SALINE 250 ML IV PRN (05:54)
--- NOTE | 2019-07-31 06:57 | NUR ---
Transferred to room 308; continue DAMEON status.
[2019-07-31 07:30] VITALS: BP 145/71
[2019-07-31] MEDS: PANTOPRAZOLE SODIUM 40 MG TABLET.DR PO SCH (07:42)
[2019-07-31] MEDS ORDERED: PROTEIN SUPPLEMENT (PROSTAT) 30 ML LIQUID PO SCH (08:00)
[2019-07-31] MEDS: BUDESONIDE 0.5 MG/2 ML NEBU NEB SCH ×2 (08:44→19:33)
[2019-07-31] MEDS: DULOXETINE 60 MG CAPSULE.DR PO SCH (08:48)
[2019-07-31] MEDS: DIVALPROEX 250 MG TABLET.DR PO SCH ×3 (08:49→16:53)
--- NOTE | 2019-07-31 09:15 | NUR ---
PATIENT REASSIGNMENT RECEIVED PATIENT AT THIS TIME ON FIRST STEP STANISLAW AWAKE ALERT VERBALLY RESPONSIVE AND ORIENTED ON O2 AT 3L/M BY NASAL CANULA WITH HOB UP WITH NO S/S OF SOB AT THIS TIME.LEFT ARM WITH SLING WITH ADEQUATE CIRCULATION THE LEFT HAND AND FINGERS.ON IVF ORDERED WITH NO S/S OF INFILTERATION ON SITE PATIENT HAS PICC LINE WITH 3 LUMEN BUT ONLY THE RED PORT IS FUNCTIONAL AT THIS TIME.REMAIN ON CONTACT ISOLATION AND PRECAUTION ORDERED NO DIARRHEA EPISODES AT THIS TIME CALL LIGHTS AND PERSONAL BELONGINGS ARE WITHIN EASY REACH WILL CONTINUE TO OBSERVE AND PROVIDE SAFE AND THERAPEUTIC ENVIRONMENT AT ALL TIMES.
[2019-07-31] MEDS: VANCOMYCIN FOR PO/GT/NG USE PO SCH ×2 (09:26→20:36)
[2019-07-31] MEDS: PROTEIN SUPPLEMENT (PROSTAT) 30 ML LIQUID PO SCH ×3 (09:26→16:53)
[2019-07-31] MEDS: MORPHINE SULFATE 2 MG/1 ML DISP.SYRIN IV PRN ×3 (09:41→20:36)
--- NOTE | 2019-07-31 11:00 | NUR ---
PATIENT SEEN AND EXAMINED BY DR HAYS WITH NO NEW ORDERS AT THIS TIME.
[2019-07-31 11:47] VITALS: BP 129/74
[2019-07-31 15:39] VITALS: BP 138/80
[2019-07-31 15:58] LABS: BASOPHILS % (AUTO) 0.9 % (0.0-2.0); EOSINOPHILS # (AUTO) 0.3 K/uL (0.0-0.7); EOSINOPHILS % (AUTO) 5.1 % (0.0-7.0); HEMATOCRIT 25.8 % (31.2-41.9); HEMOGLOBIN 8.7 g/dL (10.9-14.3); LYMPHOCYTES % (AUTO) 18.1 % (20.5-51.5); MEAN CORPUSCULAR HEMOGLOBIN 29.4 uug (24.7-32.8); MEAN CORPUSCULAR HGB CONC 34 g/dL (32.3-35.6); MEAN CORPUSCULAR VOLUME 87.9 fL (75.5-95.3); MONOCYTES # (AUTO) 0.6 K/uL (2.0-10.0); MONOCYTES % (AUTO) 9.6 % (0.0-11.0); NEUTROPHILS # (AUTO) 3.8 K/uL (1.8-8.9); NEUTROPHILS % (AUTO) 66.3 % (38.5-71.5); PLATELET COUNT (AUTO) 534 K/uL (179-408); RED BLOOD CELL COUNT(AUTO) 2.94 MIL/uL (3.63-4.92); WHITE BLOOD COUNT (AUTO) 5.7 K/uL (3.8-11.8)
--- NOTE | 2019-07-31 16:00 | NUR ---
DR CARMONA HERE AND SEEN PATIENT AWARE ABOUT THE ISSUE WITH PATIENTS SARA STATED HE IA AWARE WILL CHECK THE EMAR AND WILL ADJUST ACCORDINGLY
[2019-07-31 16:09] LABS: CREATININE 0.7 mg/dL (0.6-1.3); MAGNESIUM 1.7 mg/dL (1.8-2.4); PHOSPHOROUS 3.5 mg/dL (2.5-4.9); POTASSIUM 3.3 mmol/L (3.5-5.1)
--- NOTE | 2019-07-31 18:00 | NUR ---
PATIENT REFUSED DINNER DID NOT WANT ANY OTHER ALTERNATIVES THAT WAS OFFERED STATED NOT HUNGRY AT THIS TIME.
[2019-07-31 20:13] VITALS: BP 157/64
[2019-07-31] MEDS: QUETIAPINE FUMARATE 100 MG TABLET PO SCH (20:36)
[2019-07-31] MEDS: HYDROCODONE/APAP 10-325 MG TABLET PO PRN (22:15)
--- NOTE | 2019-07-31 22:21 | NUR ---
Pt woke up from sleep at this time. Morphine 2mg given earlier at around 2030 for 10/10 generalized body pain. Pt went to sleep after and all needs attended. However, woke up a few minutes ago stating that patient has pain on L leg/foot. No redness or any unusual markings noted. DVT pumps not in place. Grabbed new ones and placed it correctly on patient. Full assessment done and noted. [place] 10 given at this time, will continue to monitor. Remains NSR on tele.
[2019-08-01] VITALS (82 sets, daily range): BP systolic 62–174; BP diastolic 38–130
--- NOTE | 2019-08-01 01:43 | NUR ---
PT BP CHECKED AROUND MIDNIGHT BP: 68/30. NURSING INTERVENTIONS PERFORMED. PATIENT PLACED ON [place] POSITION, WOKE UP FROM SLEEPING STATE. PT RESPONDS NORMALLY, SAME PRIOR. DENIES ANY DIZZINESS OR LIGHTHEADEDNESS. REPOSITIONED IN BED. RECHECKED BP IN DIFFERENT SITES. FLUIDS RUNNING AT 100CC/HR NS, NO ISSUES. REST OF VS NORMAL. TELE STILL SHOWS NORMAL SINUS RHYTHM AT 90-95. EPISODES OF SINUS TACH, BUT REMAINS ASYMPTOMATIC. ONCLES GALLAGHER NOTIFIED AND RECEIVED NEW ORDERS FOR 500CC BOLUS. STARTED NOW, WILL RE-ASSESS BP AFTER BOLUS AND UPDATE MD.
[2019-08-01] MEDS ORDERED: IV NORMAL SALINE 500 ML IV ONE (01:45)
--- NOTE | 2019-08-01 02:30 | NUR ---
PT'S BP AFTER 500CC BOLUS REMAINED LOW, CURRENTLY 59/30. VANESSA MADE AWARE, RECEIVED ORDERS TO TRANSFER PT TO CCU, START ON LEVOPHED DRIP PER PROTOCOL AND DECREASE IVF TO 50CC/HR. REPORT GIVEN TO EAMON DELA CRUZ. CLARIFYING DNR/DNI STATUS. WHEELED PATIENT DOWN TO CCU. STILL RESPONSIVE.
--- NOTE | 2019-08-01 03:00 | NUR ---
Received patient from telemetry floor @0300. This patient is well known to us and is reported to be experiencing acute hypotension. BP on arrival was 79/53 with a HR of 92 and SPO2 of 97% on 3L o2 via NC. This blood pressure is after administration of 500ml NS bolus received on telemetry floor. Patient is awake and alert and non-symptomatic for hypotension. PICC line in present in the DONNA. left arm in sling S/P ORIF repair of humerus fracture with old bruising present, bandage present covering incision. Sánchez catheter present with clear yellow urine. Levophed started as ordered.
[2019-08-01] MEDS ORDERED: NOREPINEPHRINE BITARTRATE 4 MG/4 ML VIAL IV ONE ×2 (03:17→03:18)
[2019-08-01] MEDS: IPRATROPIUM BROMIDE 0.5 MG/2.5 ML NEBU NEB SCH ×6 (03:22→23:05)
[2019-08-01] MEDS: NOREPINEPHRINE BITARTRATE 16 MG in IV DEXTROSE 5% 500 ML IV PRN ×2 (03:22→17:03)
[2019-08-01] MEDS: ALBUTEROL SULFATE 2.5 MG/ 0.5 ML NEBU NEB SCH ×6 (03:22→23:05)
--- NOTE | 2019-08-01 04:30 | NUR ---
am care done. refused oral care. repositioned on her r side w/ hob elevated.
[2019-08-01] MEDS: METRONIDAZOLE 500 MG/NS 100ML 500 MG in PREMIXED 1 EACH IV SCH ×3 (05:34→21:51)
[2019-08-01] MEDS ORDERED: PANTOPRAZOLE SODIUM 40 MG TABLET.DR PO ONE (06:31)
[2019-08-01] MEDS: PANTOPRAZOLE SODIUM 40 MG TABLET.DR PO SCH (06:34)
[2019-08-01] MEDS: BUDESONIDE 0.5 MG/2 ML NEBU NEB SCH ×2 (07:41→19:21)
--- NOTE | 2019-08-01 08:00 | NUR ---
RECEIVED REPORT ON PT 0700. PT ALERT & ORIENTED X3 AND OBEYS COMMANDS. COLOR IS PALE. DENIES ANY DIZZINESS OR ANY LAWRENCE. HR IS SR WITH OCCASSIONAL PVC'S. IV LEVOPHED FLOWING AT 8MCG/MIN WITH BLOOD PRESSURE STABLE AND IN THE NORMAL RANGE 128/79 AT THIS TIME. IV NS INFUSING WELL AT 50ML/HR VIA THE PICC LINE ON THE DONNA. O2 AT 3L NC, SATURATING AT 95-98%. . DENIES ANY SOB. EDEMA PRESENT ON HER L ARM +1. POST SURGICAL INCISSION SITE LEFT HUMERUS WITH DRESSING CLEAN, DRY AND INTACT. C/O PAIN WITH MOVEMENT LEVEL 5. ARM SLING IMMOBILZER IS IN PLACE.
--- NOTE | 2019-08-01 08:30 | NUR ---
SEEN AND EXAMINED BY DR HAYS WITH NEW ORDERS.
[2019-08-01 09:13] LABS: BASOPHILS # (AUTO) 0.1 K/uL (0.0-8.0); BASOPHILS % (AUTO) 0.6 % (0.0-2.0); EOSINOPHILS # (AUTO) 0.4 K/uL (0.0-0.7); EOSINOPHILS % (AUTO) 4.7 % (0.0-7.0); LYMPHOCYTES # (AUTO) 1.6 K/uL (20.0-40.0); LYMPHOCYTES % (AUTO) 19.1 % (20.5-51.5); MEAN CORPUSCULAR HGB CONC 33 g/dL (32.3-35.6); MONOCYTES # (AUTO) 0.9 K/uL (2.0-10.0); MONOCYTES % (AUTO) 10.7 % (0.0-11.0); NEUTROPHILS # (AUTO) 5.3 K/uL (1.8-8.9); NEUTROPHILS % (AUTO) 64.9 % (38.5-71.5); PLATELET COUNT (AUTO) 623 K/uL (179-408); RED BLOOD CELL COUNT(AUTO) 3.23 MIL/uL (3.63-4.92)
[2019-08-01 09:25] LABS: HEMOGLOBIN 9.3 g/dL (10.9-14.3); WHITE BLOOD COUNT (AUTO) 8.2 K/uL (3.8-11.8)
[2019-08-01 09:26] LABS: HEMATOCRIT 28.7 % (31.2-41.9)
[2019-08-01] MEDS ORDERED: POTASSIUM CHLORIDE 20 MEQ TAB.PRT.SR PO ONE (09:45)
[2019-08-01] MEDS ORDERED: MAGNESIUM SULFATE/D5W 100 ML IV SCH (09:45)
[2019-08-01] MEDS: DULOXETINE 60 MG CAPSULE.DR PO SCH (09:59)
--- NOTE | 2019-08-01 10:00 | NUR ---
MAGNESIUM 1GM IV GIVEN REPLACEMENT. KDUR 40MEQ PO GIVEN.
[2019-08-01] MEDS: HYDROCODONE/APAP 10-325 MG TABLET PO PRN (10:01)
[2019-08-01] MEDS: VANCOMYCIN FOR PO/GT/NG USE PO SCH ×2 (10:04→20:43)
[2019-08-01] MEDS: DIVALPROEX 250 MG TABLET.DR PO SCH ×3 (10:04→17:03)
[2019-08-01] MEDS: PROTEIN SUPPLEMENT (PROSTAT) 30 ML LIQUID PO SCH ×3 (10:07→17:03)
[2019-08-01 10:13] LABS: BILIRUBIN,TOTAL 0.2 mg/dL (0.2-1.0); CREATININE 0.7 mg/dL (0.6-1.3); MAGNESIUM 1.7 mg/dL (1.8-2.4); PHOSPHOROUS 3.9 mg/dL (2.5-4.9); POTASSIUM 3.2 mmol/L (3.5-5.1); TOTAL PROTEIN, SERUM 5.6 g/dL (6.4-8.2)
--- NOTE | 2019-08-01 11:30 | NUR ---
PT ACTIVITY DONE AT BEDSIDE.
[2019-08-01] MEDS: IV NS 1000 ML 1,000 ML IV PRN (13:03)
[2019-08-01] MEDS: MORPHINE SULFATE 2 MG/1 ML DISP.SYRIN IV PRN (14:17)
--- NOTE | 2019-08-01 17:30 | NUR ---
SEEN AND EXAMINED BY DR FREIRE. NO NEW ORDERS MADE.
--- NOTE | 2019-08-01 18:30 | NUR ---
CONDITION IS STABLE.
--- NOTE | 2019-08-01 19:20 | NUR ---
Received patient. Patient is awake and alert. PICC line in present in the DONNA. left arm in sling S/P ORIF repair of humerus fracture with old healing bruising present, bandage present covering incision. Sánchez catheter present with clear light yellow urine. Currently diuresing with 3,500mL output on previous shift. Levophed at 8mcg.
[2019-08-01] MEDS: QUETIAPINE FUMARATE 100 MG TABLET PO SCH (20:42)
--- NOTE | 2019-08-01 23:05 | NUR ---
Pt asleep. No s/s of respiratory distress noted. After HHN tx at 19:30 pt asked to do not wake her up. LANIE Hamilton notified.
[2019-08-02] VITALS (71 sets, daily range): BP systolic 50–144; BP diastolic 28–107
[2019-08-02] MEDS: IPRATROPIUM BROMIDE 0.5 MG/2.5 ML NEBU NEB SCH ×6 (03:30→23:11)
[2019-08-02] MEDS: ALBUTEROL SULFATE 2.5 MG/ 0.5 ML NEBU NEB SCH ×6 (03:30→23:11)
[2019-08-02 04:51] LABS: BASOPHILS # (AUTO) 0.1 K/uL (0.0-8.0); BASOPHILS % (AUTO) 1.1 % (0.0-2.0); EOSINOPHILS # (AUTO) 0.3 K/uL (0.0-0.7); EOSINOPHILS % (AUTO) 3.4 % (0.0-7.0); HEMATOCRIT 28.3 % (31.2-41.9); HEMOGLOBIN 9.5 g/dL (10.9-14.3); LYMPHOCYTES # (AUTO) 1.2 K/uL (20.0-40.0); LYMPHOCYTES % (AUTO) 12.9 % (20.5-51.5); MEAN CORPUSCULAR HEMOGLOBIN 29.3 uug (24.7-32.8); MEAN CORPUSCULAR HGB CONC 34 g/dL (32.3-35.6); MEAN CORPUSCULAR VOLUME 87.6 fL (75.5-95.3); MONOCYTES # (AUTO) 0.8 K/uL (2.0-10.0); MONOCYTES % (AUTO) 8.5 % (0.0-11.0); NEUTROPHILS # (AUTO) 7.2 K/uL (1.8-8.9); NEUTROPHILS % (AUTO) 74.1 % (38.5-71.5); PLATELET COUNT (AUTO) 629 K/uL (179-408); RED BLOOD CELL COUNT(AUTO) 3.23 MIL/uL (3.63-4.92); WHITE BLOOD COUNT (AUTO) 9.7 K/uL (3.8-11.8)
[2019-08-02 05:10] LABS: CARBON DIOXIDE 33 mmol/L (21-32); CHLORIDE 103 mmol/L (98-107); CREATININE 0.5 mg/dL (0.6-1.3); GLUCOSE 136 mg/dL (74-106); MAGNESIUM 1.6 mg/dL (1.8-2.4); PHOSPHOROUS 3.5 mg/dL (2.5-4.9); POTASSIUM 2.9 mmol/L (3.5-5.1); UREA NITROGEN, BLOOD 13 mg/dL (7-18)
[2019-08-02 06:15] LABS: BAND % (MANUAL) 2 % (0-10); EOSINOPHILS % (MANUAL) 6 % (0-8); LYMPHOCYTES % (MANUAL) 13 % (20-40); METAMYELOCYTES % 2 % (0-1); MONOCYTES % (MANUAL) 7 % (2-10); MYELOCYTES % 1 % (0-0); NEUTROPHILS % (MANUAL) 69 % (42-75)
[2019-08-02] MEDS: METRONIDAZOLE 500 MG/NS 100ML 500 MG in PREMIXED 1 EACH IV SCH ×3 (06:30→21:03)
[2019-08-02] MEDS: PANTOPRAZOLE SODIUM 40 MG TABLET.DR PO SCH (06:30)
--- NOTE | 2019-08-02 06:40 | NUR ---
Called [employer] group to report potassium (2.9) and magnesium (1.6). Message left and will await call back.
[2019-08-02] MEDS: BUDESONIDE 0.5 MG/2 ML NEBU NEB SCH ×2 (07:58→19:26)
[2019-08-02] MEDS: PROTEIN SUPPLEMENT (PROSTAT) 30 ML LIQUID PO SCH ×3 (08:00→17:00)
[2019-08-02 08:02] LABS: ABG BASE EXCESS 8.9 mmol/L; ABG HCO3 32.9 mmol/L; ABG PCO2 43.2 mmHg (35.0-45.0); ABG SITE RIGHT RADIAL; ABG TOTAL HEMOGLOBIN 10.6 G/dL (12.0-16.0); COHb 1.2 % (0.5-1.5); MetHb 0.2 % (0.0-1.5); O2Hb 92.5 % (94.0-97.0)
[2019-08-02] MEDS: DIVALPROEX 250 MG TABLET.DR PO SCH ×3 (08:21→17:31)
[2019-08-02] MEDS: DULOXETINE 60 MG CAPSULE.DR PO SCH (08:21)
[2019-08-02] MEDS: MORPHINE SULFATE 2 MG/1 ML DISP.SYRIN IV PRN ×2 (08:22→17:32)
[2019-08-02] MEDS: VANCOMYCIN FOR PO/GT/NG USE PO SCH ×2 (08:23→21:03)
--- NOTE | 2019-08-02 08:30 | NUR ---
VANESSA IN THE UNIT TO SEE PATIENT. INFORMED OF OUTPUT OVERNIGHT OVER 6LITERS AND PATIENT FREQUENTLY HAS HIGH OUTPUT EVERYDAY WITH ELECTROLYTE IMBALANCE.
[2019-08-02] MEDS ORDERED: POTASSIUM CHLORIDE 10 MEQ TAB.PRT.SR PO SCH (09:00)
[2019-08-02] MEDS ORDERED: MAGNESIUM SULFATE/D5W 100 ML IV SCH (09:15)
[2019-08-02] MEDS: POTASSIUM CHLORIDE 50 ML IV SCH ×4 (09:29→12:16)
[2019-08-02] MEDS: MAGNESIUM SULFATE/D5W 100 ML IV SCH ×4 (09:29→13:42)
[2019-08-02] MEDS: [UNRECOGNIZED DRUG - OTHER] IV PRN (12:16)
[2019-08-02] MEDS: POTASSIUM CHLORIDE IV PRN (12:16)
[2019-08-02 14:57] LABS: *BILIRUBIN,URIN NEGATIVE (NEGATIVE); *CLARITY,URINE CLEAR (CLEAR); *COLOR,URINE YELLOW (YELLOW); *KETONES,URINE NEGATIVE (NEGATIVE); *UROBILINOGEN,URINE 0.2 E.U./dl (NORMAL); LEUKOCYTE ESTERASE ,URINE NEGATIVE (NEGATIVE); NITRITE, URINE NEGATIVE (NEGATIVE); UGLUCOSE NEGATIVE (NEGATIVE)
[2019-08-02 15:08] LABS: *BLOOD, URINE NEGATIVE (NEGATIVE)
[2019-08-02 15:20] LABS: *CREATININE,URINE 20.9 mg/dL (30-125); *URINE TOTAL PROTEIN RANDOM 24.1 mg/dL (<150/24HR)
[2019-08-02] MEDS ORDERED: ZOLPIDEM 5 MG TABLET PO PRN (21:00)
[2019-08-02] MEDS: QUETIAPINE FUMARATE 100 MG TABLET PO SCH (21:03)
[2019-08-02] MEDS: ZOLPIDEM 5 MG TABLET PO SCH (21:09)
--- NOTE | 2019-08-02 22:00 | NUR ---
had to restart levo gtt sbp 50's, pt a/a/o xs 4 skin w/d
[2019-08-03] VITALS (91 sets, daily range): BP systolic 75–153; BP diastolic 42–96
[2019-08-03] MEDS: ALBUTEROL SULFATE 2.5 MG/ 0.5 ML NEBU NEB SCH ×6 (00:30→21:06)
[2019-08-03] MEDS: IPRATROPIUM BROMIDE 0.5 MG/2.5 ML NEBU NEB SCH ×6 (00:30→21:06)
[2019-08-03 05:03] LABS: BASOPHILS # (AUTO) 0.1 K/uL (0.0-8.0); BASOPHILS % (AUTO) 0.7 % (0.0-2.0); EOSINOPHILS # (AUTO) 0.2 K/uL (0.0-0.7); EOSINOPHILS % (AUTO) 2.1 % (0.0-7.0); HEMATOCRIT 25.8 % (31.2-41.9); HEMOGLOBIN 8.6 g/dL (10.9-14.3); LYMPHOCYTES # (AUTO) 1.5 K/uL (20.0-40.0); LYMPHOCYTES % (AUTO) 15.4 % (20.5-51.5); MEAN CORPUSCULAR HEMOGLOBIN 29.4 uug (24.7-32.8); MEAN CORPUSCULAR HGB CONC 34 g/dL (32.3-35.6); MEAN CORPUSCULAR VOLUME 87.7 fL (75.5-95.3); MONOCYTES # (AUTO) 0.9 K/uL (2.0-10.0); MONOCYTES % (AUTO) 9.1 % (0.0-11.0); NEUTROPHILS # (AUTO) 6.9 K/uL (1.8-8.9); NEUTROPHILS % (AUTO) 72.7 % (38.5-71.5); PLATELET COUNT (AUTO) 550 K/uL (179-408); RED BLOOD CELL COUNT(AUTO) 2.94 MIL/uL (3.63-4.92); WHITE BLOOD COUNT (AUTO) 9.4 K/uL (3.8-11.8)
[2019-08-03] MEDS: [UNRECOGNIZED DRUG - OTHER] IV PRN ×2 (05:07→20:15)
[2019-08-03] MEDS: POTASSIUM CHLORIDE IV PRN ×2 (05:07→20:15)
[2019-08-03 05:14] LABS: CREATININE 0.6 mg/dL (0.6-1.3); MAGNESIUM 2.2 mg/dL (1.8-2.4); PHOSPHOROUS 3.8 mg/dL (2.5-4.9); POTASSIUM 3.4 mmol/L (3.5-5.1)
[2019-08-03] MEDS: METRONIDAZOLE 500 MG/NS 100ML 500 MG in PREMIXED 1 EACH IV SCH ×3 (05:58→21:39)
[2019-08-03] MEDS: PANTOPRAZOLE SODIUM 40 MG TABLET.DR PO SCH (06:01)
[2019-08-03] MEDS: BUDESONIDE 0.5 MG/2 ML NEBU NEB SCH ×2 (07:14→21:06)
--- NOTE | 2019-08-03 07:30 | NUR ---
continues to need b/p support with levo gtt
--- NOTE | 2019-08-03 07:30 | NUR ---
RECEIVED PT & REPORT AT 0700. PT ALERT & ORIENTED X3 AND OBEYS COMMANDS. COLOR IS SLIGHTLY PALE. DENIES DIZZINESS, LAWRENCE, SOB. HR IS SINUS TACHYCARDIA WITH OCCASIONAL PVCS IN THE 103-108 B/MIN. IV LEVOPHED DRIP FLOWING AT 8MCG/MIN WITH BLOOD PRESSURE STABLE AND WITHIN NORMAL RANGE, 108/68 AT THIS TIME. MAIN IVF IS 1/2 NS WIITH 30MEQ KCL INFUSING WELL VIA PICC AT [facility]. PICC IS IN PLACE AND DRESSING IS DRY AND INTACT. O2 AT 2L NC SATURATING AT 95-100%. GENERAL EDEMA WITH MORE EDEMA PRESENT IN LEFT ARM. POST SURGICAL INCISION SITE AT LEFT HUMERUS IS CLEAN, DRY, & INTACT. PT C/O PAIN LEVEL 8 ON THE LEFT ARM WHEN BEING MOVED. SLIGHTLY FEBRILE WITH A TEMP 99.6F RECTALLY
--- NOTE | 2019-08-03 08:30 | NUR ---
PT HAD BLOODY MUCOID STOOL FOUND UPON [facility]. YAZMIN LIPSCOMB DNP MADE AWARE. ORDERED STOOL FOR OB.
[2019-08-03] MEDS: DIVALPROEX 250 MG TABLET.DR PO SCH ×3 (08:57→17:30)
[2019-08-03] MEDS: DULOXETINE 60 MG CAPSULE.DR PO SCH (08:57)
[2019-08-03] MEDS: VANCOMYCIN FOR PO/GT/NG USE PO SCH ×2 (08:58→20:19)
[2019-08-03] MEDS: PROTEIN SUPPLEMENT (PROSTAT) 30 ML LIQUID PO SCH ×3 (09:24→17:41)
--- NOTE | 2019-08-03 10:30 | NUR ---
SEEN AND EXAMINED BY DR HAYS WITH NEW ORDERS.
[2019-08-03] MEDS ORDERED: POTASSIUM CHLORIDE 20 MEQ TAB.PRT.SR PO ONE (10:45)
[2019-08-03] MEDS: NOREPINEPHRINE BITARTRATE 16 MG in IV DEXTROSE 5% 500 ML IV PRN (11:10)
[2019-08-03] MEDS: MIDODRINE HCL 5 MG TABLET PO SCH ×2 (12:34→17:31)
[2019-08-03] MEDS ORDERED: MIDODRINE HCL 2.5 MG TABLET PO SCH (13:00)
--- NOTE | 2019-08-03 13:00 | NUR ---
SEEN AND EXAMINED BY DR. LIPSCOMB WITH NEW ORDERS.
[2019-08-03] MEDS: ACETAMINOPHEN 325 MG TABLET PO PRN (13:02)
--- NOTE | 2019-08-03 13:30 | NUR ---
PT ACTIVITY DONE IN BED. ABLE TO DANGLE IN BED FOR SHORT PERIOD OF TIME.
--- NOTE | 2019-08-03 17:00 | NUR ---
PT HAD LARGE SOFT BLOODY BM WITH MUCOUS. STOOL SENT FOR OCCULT BLOOD DONE.
[2019-08-03] MEDS: MORPHINE SULFATE 2 MG/1 ML DISP.SYRIN IV PRN (18:27)
--- NOTE | 2019-08-03 18:30 | NUR ---
PT C/O 8 OUT OF 10 PAIN. MEDICATED WITH 2MG OF MORPHINE DONE.
[2019-08-03 18:33] LABS: *OCCULT BLOOD STOOL POSITIVE (NEGATIVE)
--- NOTE | 2019-08-03 19:15 | NUR ---
received patient awake , oriented , able to follow command , denies pain , levophed at 8 mcg , ic 1/2 ns with 30 meq , ferreira inatc , picc line
[2019-08-03] MEDS: QUETIAPINE FUMARATE 100 MG TABLET PO SCH (20:16)
[2019-08-03] MEDS: ZOLPIDEM 5 MG TABLET PO SCH (20:49)
--- NOTE | 2019-08-03 22:15 | NUR ---
iv / ns is mix with 30 meq kcl Addendum: 08/03/19 at 2215 by JENNIFER PATTERSON RN Amended: Kalyani isaac. Addendum: 08/03/19 at 2216 by JENNIFER PATTERSON RN Amended: Kalyani isaac.
--- NOTE | 2019-08-03 22:16 | NUR ---
patient lab work is being monitored and on antibiotics Addendum: 08/03/19 at 2216 by JENNIFER PATTERSON RN Amended: Links added.
--- NOTE | 2019-08-03 22:16 | NUR ---
Maintains weight within 10% of IBW * Maintains adequate caloric intake * Maintains optimal lab values Addendum: 08/03/19 at 2217 by JENNIFER PATTERSON RN Amended: Kalyani added. Addendum: 08/03/19 at 2221 by JENNIFER PATTERSON RN Amended: Kalyani added. Addendum: 08/03/19 at 3 by JENNIFER PATTERSON RN Amended: Links added. Addendum: 08/03/19 at 2223 by JENNIFER PATTERSON RN Amended: Links added.
--- NOTE | 2019-08-03 22:22 | NUR ---
* Exhibits granulation/healing at site * Exhibits decreased drainage at site * Exhibits no s/s of infection * Exhibits a decrease in lesion size * Maintains nutritional status Addendum: 08/03/19 at 2221 by JENNIFER PATTERSON RN Amended: Kalyani added. Addendum: 08/03/19 at 2222 by JENNIFER PATTERSON RN Amended: Kalyani added. Addendum: 08/03/19 at 3 by JENNIFER PATTERSON RN Amended: Links added.
--- NOTE | 2019-08-03 22:22 | NUR ---
assistance is needed * Increases ability to cope with caregiving * Seeks respite and short term relief services Addendum: 08/03/19 at 2221 by JENNIFER PATTERSON RN Amended: Kalyani isaac. Addendum: 08/03/19 at 2222 by JENNIFER PATTERSON RN Amended: Kalyani isaac. Addendum: 08/03/19 at 3 by JENNIFER PATTERSON RN Amended: Links added.
--- NOTE | 2019-08-03 22:23 | NUR ---
Identifies activities for which assistance is needed * Increases ability to cope with caregiving * Maintains nutritional statu Addendum: 08/03/19 at 2223 by JENNIFER PATTERSON RN Amended: Kalyani isaac. Addendum: 08/03/19 at 2223 by JENNIFER PATTERSON RN Amended: Kalyani isaac. Addendum: 08/03/19 at 2224 by JENNIFER PATTERSON RN Amended: Links added.
--- NOTE | 2019-08-03 22:23 | NUR ---
* Identifies controllable stressors * Identifies sources of support * Identifies activities for which assistance is needed * Increases ability to cope with Addendum: 08/03/19 at 2223 by JENNIFER PATTERSON RN Amended: Links added.
--- NOTE | 2019-08-03 22:23 | NUR ---
* Identifies activities for which assistance is needed * Increases ability to cope with caregiving * Maintains nutritional status Addendum: 08/03/19 at 2223 by JENNIFER APTTERSON RN Amended: Kalyani added. Addendum: 08/03/19 at 3 by JENNIFER PATTERSON RN Amended: Kalyani isaac.
--- NOTE | 2019-08-03 22:24 | NUR ---
* Identifies activities for which assistance is needed * Increases ability to cope with caregiving * Maintains nutritional status Addendum: 08/03/19 at 2223 by JENNIFER PATTERSON RN Amended: Kalyani isaac. Addendum: 08/03/19 at 2223 by JENNIFER PATTERSON RN Amended: Kalyani isaac. Addendum: 08/03/19 at 2224 by JENNIFER PATTERSON RN Amended: Links added.
--- NOTE | 2019-08-03 22:24 | NUR ---
* Identifies activities for which assistance is needed * Increases ability to cope with caregiving * Maintains nutritional status Addendum: 08/03/19 at 2224 by JENNIFER PATTERSON RN Amended: Kalyani added. Addendum: 08/03/19 at 2225 by JENNIFER PATTERSON RN Amended: Kalyani isaac.
--- NOTE | 2019-08-03 22:25 | NUR ---
* Identifies controllable stressors * Identifies sources of support * Identifies activities for which assistance is needed * Increases ability to cope with Addendum: 08/03/19 at 2225 by JENNIFER PATTERSON RN Amended: Links added.
--- NOTE | 2019-08-03 22:25 | NUR ---
* Maintains an alert level of consciousness * Maintains or increases Song Coma Score * Maintains vital signs WNL Addendum: 08/03/19 at 2226 by JENNIFER PATTERSON RN Amended: Kalyani added. Addendum: 08/03/19 at 2227 by JENNIFER PATTERSON RN Amended: Links added.
--- NOTE | 2019-08-03 22:25 | NUR ---
* Helps perform self care activities * Maintains maximum range of motion * Regains muscle mass and strength * Maintains vital signs WNL during activity Addendum: 08/03/19 at 2225 by JENNIFER PATTERSON RN Amended: Kalyani isaac. Addendum: 08/03/19 at 6 by JENNIFER PATTERSON RN Amended: Kalyani isaac. Addendum: 08/03/19 at 2227 by JENNIFER PATTERSON RN Amended: Links added.
--- NOTE | 2019-08-03 22:26 | NUR ---
* Identifies activities for which assistance is needed * Increases ability to cope with caregiving * Maintains nutritional status * Maintains hydration status * Maintains optimal lab values Addendum: 08/03/19 at 2226 by JENNIFER PATTERSON RN Amended: Kalyani isaac. Addendum: 08/03/19 at 2227 by JENNIFER PATTERSON RN Amended: Kalyani isaac.
--- NOTE | 2019-08-03 22:27 | NUR ---
Identifies controllable stressors * Identifies sources of support * Identifies activities for which assistance is needed * Increases ability to cope with caregiving * Seeks respite and short term relief services Addendum: 08/03/19 at 2227 by JENNIFER PATTERSON RN Amended: Links added.
[2019-08-04] VITALS (94 sets, daily range): BP systolic 58–145; BP diastolic 25–102
--- NOTE | 2019-08-04 01:18 | NUR ---
sleeping sounly , arousable , no distress , levophed at 15 mcg
[2019-08-04] MEDS: IPRATROPIUM BROMIDE 0.5 MG/2.5 ML NEBU NEB SCH ×6 (03:26→23:30)
[2019-08-04] MEDS: ALBUTEROL SULFATE 2.5 MG/ 0.5 ML NEBU NEB SCH ×6 (03:26→23:30)
[2019-08-04] MEDS: METRONIDAZOLE 500 MG/NS 100ML 500 MG in PREMIXED 1 EACH IV SCH ×3 (06:51→21:12)
[2019-08-04] MEDS: BUDESONIDE 0.5 MG/2 ML NEBU NEB SCH ×2 (07:33→20:23)
[2019-08-04] MEDS: PANTOPRAZOLE SODIUM 40 MG TABLET.DR PO SCH (07:52)
[2019-08-04] MEDS: DIVALPROEX 250 MG TABLET.DR PO SCH ×3 (07:53→18:50)
[2019-08-04] MEDS: DULOXETINE 60 MG CAPSULE.DR PO SCH (07:55)
[2019-08-04] MEDS: PROTEIN SUPPLEMENT (PROSTAT) 30 ML LIQUID PO SCH ×3 (07:56→17:00)
[2019-08-04] MEDS: MIDODRINE HCL 5 MG TABLET PO SCH ×3 (07:59→18:50)
[2019-08-04] MEDS: NOREPINEPHRINE BITARTRATE 16 MG in IV DEXTROSE 5% 500 ML IV PRN (08:10)
[2019-08-04] MEDS: MORPHINE SULFATE 2 MG/1 ML DISP.SYRIN IV PRN ×2 (09:11→18:49)
[2019-08-04] MEDS: ONDANSETRON 4 MG/2 ML VIAL IV PRN (09:20)
[2019-08-04] MEDS: VANCOMYCIN FOR PO/GT/NG USE PO SCH ×2 (10:10→21:12)
--- NOTE | 2019-08-04 10:50 | NUR ---
DOCTOR MARTINS IN THE UNIT ROUNDING ON PATIENT. NO NEW ORDERS AT THIS TIME
[2019-08-04] MEDS: [UNRECOGNIZED DRUG - OTHER] IV PRN (11:13)
[2019-08-04] MEDS: POTASSIUM CHLORIDE IV PRN (11:13)
[2019-08-04 12:19] LABS: BASOPHILS % (AUTO) 0.3 % (0.0-2.0); EOSINOPHILS # (AUTO) 0.2 K/uL (0.0-0.7); EOSINOPHILS % (AUTO) 1.9 % (0.0-7.0); HEMATOCRIT 28.3 % (31.2-41.9); HEMOGLOBIN 9.1 g/dL (10.9-14.3); LYMPHOCYTES # (AUTO) 0.8 K/uL (20.0-40.0); LYMPHOCYTES % (AUTO) 7.2 % (20.5-51.5); MEAN CORPUSCULAR HEMOGLOBIN 28.6 uug (24.7-32.8); MEAN CORPUSCULAR HGB CONC 32 g/dL (32.3-35.6); MEAN CORPUSCULAR VOLUME 88.7 fL (75.5-95.3); MONOCYTES # (AUTO) 0.7 K/uL (2.0-10.0); MONOCYTES % (AUTO) 6.4 % (0.0-11.0); NEUTROPHILS # (AUTO) 9.3 K/uL (1.8-8.9); NEUTROPHILS % (AUTO) 84.2 % (38.5-71.5); PLATELET COUNT (AUTO) 558 K/uL (179-408); RED BLOOD CELL COUNT(AUTO) 3.19 MIL/uL (3.63-4.92); WHITE BLOOD COUNT (AUTO) 11.1 K/uL (3.8-11.8)
[2019-08-04 12:24] LABS: CARBON DIOXIDE 35 mmol/L (21-32); CHLORIDE 104 mmol/L (98-107); CREATININE 0.5 mg/dL (0.6-1.3); GLUCOSE 145 mg/dL (74-106); MAGNESIUM 1.8 mg/dL (1.8-2.4); PHOSPHOROUS 3.6 mg/dL (2.5-4.9); POTASSIUM 4.3 mmol/L (3.5-5.1); UREA NITROGEN, BLOOD 13 mg/dL (7-18)
--- NOTE | 2019-08-04 18:30 | NUR ---
Continue to do CT Scan of the head jonatan. pharmacy to [facility]. Addendum: 08/04/19 at 0 by KANIKA TOTH RN no orders per zoya for this patient
--- NOTE | 2019-08-04 19:15 | NUR ---
received patient awake , oriented , able to follow command , levophed at 2 mcg . iv intact , ferreira intact , no distress , uncooperative , dinner is offered and accepted , 30 % eaten , iv 1/ ns + 30 meq is running at 75 ml /hr
[2019-08-04] MEDS: QUETIAPINE FUMARATE 100 MG TABLET PO SCH (21:12)
[2019-08-05] VITALS (91 sets, daily range): BP systolic 58–170; BP diastolic 31–104
--- NOTE | 2019-08-05 | NUR ---
sleeping soundly , arousable , no distress levophed is increased at 15 mcg ,
--- NOTE | 2019-08-05 00:02 | NUR ---
Helps perform self care activities * Maintains maximum range of motion * Regains muscle mass and strength * Maintains vital signs WNL during activity Addendum: 08/05/19 at 0002 by JENNIFER PATTERSON RN Amended: Kalyani added. Addendum: 08/05/19 at 0003 by JENNIFER PATTERSON RN Amended: Links added. Addendum: 08/05/19 at 0003 by JENNIFER PATTERSON RN Amended: Links added. Addendum: 08/05/19 at 0004 inessa PATTERSON RN Amended: Links added. Addendum: 08/05/19 at 0005 inessa PATTERSON RN Amended: Links added. Addendum: 08/05/19 at 0006 by JENNIFER PATTERSON RN Amended: Links added. Addendum: 08/05/19 at 0006 by JENNIFER PATTERSON RN Amended: Links added.
--- NOTE | 2019-08-05 00:03 | NUR ---
Maintains an alert level of consciousness * Maintains or increases Brilliant Coma Score * Maintains vital signs WNL * Evidences decreases or no seizure activity Addendum: 08/05/19 at 0003 by JENNIFER PATTERSON RN Amended: Kalyani isaac. Addendum: 08/05/19 at 0003 by JENNIFER PATTERSON RN Amended: Links added. Addendum: 08/05/19 at 0004 by JENNIFER PATTERSON RN Amended: Links added. Addendum: 08/05/19 at 0005 by JENNIFER PATTERSON RN Amended: Links added. Addendum: 08/05/19 at 0006 inessa PATTERSON RN Amended: Links added. Addendum: 08/05/19 at 0006 by JENNIFER PATTERSON RN Amended: Links added.
--- NOTE | 2019-08-05 00:03 | NUR ---
Exhibits granulation/healing at site * Exhibits decreased drainage at site * Exhibits no s/s of infection * Exhibits a decrease in lesion size * Maintains nutritional status Addendum: 08/05/19 at 0004 by JENNIFER PATTERSON RN Amended: Kalyani added. Addendum: 08/05/19 at 0005 by JENNIFER PATTERSON RN Amended: Links added. Addendum: 08/05/19 at 0006 by JENNIFER PATTERSON RN Amended: Links added. Addendum: 08/05/19 at 0006 by JENNIFER PATTERSON RN Amended: Links added.
--- NOTE | 2019-08-05 00:03 | NUR ---
* Maintains blood gasses WNL * Evidences usual mental status * Exhibits usual skin color Addendum: 08/05/19 at 0003 by JENNIFER PATTERSON RN Amended: Kalyani added. Addendum: 08/05/19 at 0004 by JENNIFER PATTERSON RN Amended: Kalyani added. Addendum: 08/05/19 at 0005 by JENNIFER PATTERSON RN Amended: Links added. Addendum: 08/05/19 at 0006 by JENNIFER PATTERSON RN Amended: Links added. Addendum: 08/05/19 at 0006 by JENNIFER PATTERSON RN Amended: Links added.
--- NOTE | 2019-08-05 00:04 | NUR ---
* Exhibits no s/s of infection * Maintains nutritional status * Maintains hydration status * Maintains optimal lab values * Maintains vital signs WNL Addendum: 08/05/19 at 0005 by JENNIFER PATTERSON RN Amended: Kalyani added. Addendum: 08/05/19 at 0006 by JENNIFER PATTERSON RN Amended: Kalyani added. Addendum: 08/05/19 at 0006 by JENNIFER PATTERSON RN Amended: Links added.
--- NOTE | 2019-08-05 00:04 | NUR ---
* Exhibits no s/s of infection * Maintains nutritional status * Maintains hydration status * Maintains optimal lab values * Maintains vital signs WNL Addendum: 08/05/19 at 0004 by JENNIFER PATTERSON RN Amended: Kalyani added. Addendum: 08/05/19 at 0005 by JENNIFER PATTERSON RN Amended: Links added. Addendum: 08/05/19 at 0006 inessa PATTERSON RN Amended: Links added. Addendum: 08/05/19 at 0006 by JENNIFER PATTERSON RN Amended: Links added.
--- NOTE | 2019-08-05 00:04 | NUR ---
* Maintains weight within 10% of IBW * Maintains adequate caloric intake * Maintains optimal lab values Addendum: 08/05/19 at 0005 by JENNIFER PATTERSON RN Amended: Kalyani added. Addendum: 08/05/19 at 0006 by JENNIFER PATTERSON RN Amended: Kalyani added. Addendum: 08/05/19 at 0006 by JENNIFER PATTERSON RN Amended: Links added.
--- NOTE | 2019-08-05 00:05 | NUR ---
Uses pain scale appropriately * Identify options for pain control - Analgesics - Narcotics - Non-medication measures Addendum: 08/05/19 at 0006 by JENNIFER PATTERSON RN Amended: Kalyani added. Addendum: 08/05/19 at 0006 by JENNIFER PATTERSON RN Amended: Links added.
--- NOTE | 2019-08-05 00:05 | NUR ---
Perform activities of recovery with reported acceptable level of pain Addendum: 08/05/19 at 0006 by JENNIFER PATTERSON RN Amended: Kalyani added. Addendum: 08/05/19 at 0006 by JENNIFER PATTERSON RN Amended: Kalyani isaac.
--- NOTE | 2019-08-05 00:06 | NUR ---
State ability to obtain sufficient amounts of rest and sleep Addendum: 08/05/19 at 0006 by JENNIFER PATTERSON RN Amended: Links added.
[2019-08-05] MEDS: [UNRECOGNIZED DRUG - OTHER] IV PRN ×2 (01:52→20:58)
[2019-08-05] MEDS: POTASSIUM CHLORIDE IV PRN ×2 (01:52→20:58)
[2019-08-05] MEDS: ALBUTEROL SULFATE 2.5 MG/ 0.5 ML NEBU NEB SCH ×6 (03:33→23:30)
[2019-08-05] MEDS: IPRATROPIUM BROMIDE 0.5 MG/2.5 ML NEBU NEB SCH ×6 (03:33→23:30)
[2019-08-05 04:52] LABS: BASOPHILS # (AUTO) 0.1 K/uL (0.0-8.0); BASOPHILS % (AUTO) 0.6 % (0.0-2.0); EOSINOPHILS # (AUTO) 0.3 K/uL (0.0-0.7); EOSINOPHILS % (AUTO) 2.3 % (0.0-7.0); HEMATOCRIT 30.3 % (31.2-41.9); HEMOGLOBIN 9.9 g/dL (10.9-14.3); LYMPHOCYTES # (AUTO) 1.7 K/uL (20.0-40.0); LYMPHOCYTES % (AUTO) 13.8 % (20.5-51.5); MEAN CORPUSCULAR HGB CONC 33 g/dL (32.3-35.6); MEAN CORPUSCULAR VOLUME 88.6 fL (75.5-95.3); MONOCYTES % (AUTO) 8.2 % (0.0-11.0); NEUTROPHILS # (AUTO) 9.4 K/uL (1.8-8.9); NEUTROPHILS % (AUTO) 75.1 % (38.5-71.5); PLATELET COUNT (AUTO) 639 K/uL (179-408); RED BLOOD CELL COUNT(AUTO) 3.42 MIL/uL (3.63-4.92); WHITE BLOOD COUNT (AUTO) 12.5 K/uL (3.8-11.8)
[2019-08-05 04:57] LABS: CREATININE 0.6 mg/dL (0.6-1.3); MAGNESIUM 1.7 mg/dL (1.8-2.4); PHOSPHOROUS 4.2 mg/dL (2.5-4.9); POTASSIUM 4.4 mmol/L (3.5-5.1)
[2019-08-05] MEDS: METRONIDAZOLE 500 MG/NS 100ML 500 MG in PREMIXED 1 EACH IV SCH ×3 (06:12→20:52)
--- NOTE | 2019-08-05 07:30 | NUR ---
Received report from shift supervisor film processing nurse, patient in bed asleep, no distress noted at this time, bed in low position, side rails up x2, air mattress inflated, dvt pumps on, oxygen 2L nasal cannula. Patient is on Levophed drip 10mcg. Left on in sling with dressing over left shoulder. All needs met, will continue to monitor.
--- NOTE | 2019-08-05 07:52 | NUR ---
Patient examined by Dr. Phillips.
[2019-08-05] MEDS: BUDESONIDE 0.5 MG/2 ML NEBU NEB SCH ×2 (08:10→19:54)
[2019-08-05] MEDS: PANTOPRAZOLE SODIUM 40 MG TABLET.DR PO SCH (08:13)
[2019-08-05] MEDS: NOREPINEPHRINE BITARTRATE 16 MG in IV DEXTROSE 5% 500 ML IV PRN (08:15)
[2019-08-05] MEDS: PROTEIN SUPPLEMENT (PROSTAT) 30 ML LIQUID PO SCH ×3 (08:19→18:23)
[2019-08-05] MEDS: MIDODRINE HCL 5 MG TABLET PO SCH ×3 (08:20→18:22)
[2019-08-05] MEDS: DIVALPROEX 250 MG TABLET.DR PO SCH ×3 (08:21→18:23)
[2019-08-05] MEDS: DULOXETINE 60 MG CAPSULE.DR PO SCH (08:21)
[2019-08-05] MEDS: VANCOMYCIN FOR PO/GT/NG USE PO SCH ×2 (08:23→18:24)
[2019-08-05] MEDS: MAGNESIUM SULFATE/D5W 100 ML IV SCH ×2 (09:07→10:48)
[2019-08-05] MEDS: MORPHINE SULFATE 2 MG/1 ML DISP.SYRIN IV PRN ×2 (09:08→20:53)
[2019-08-05] MEDS: ACETAMINOPHEN 325 MG TABLET PO PRN (09:08)
--- NOTE | 2019-08-05 10:05 | NUR ---
Patient seen by Dr. Fischer.
--- NOTE | 2019-08-05 12:15 | NUR ---
Patient seen by Dr. Mcintosh discussed request for Dr. Phillips to revisit patient.
--- NOTE | 2019-08-05 13:01 | NUR ---
Patient seen by Kingston from ID. Discussed inquiry from Dr. Phillips to increase oral vanco for C-diff.
[2019-08-05] MEDS: QUETIAPINE FUMARATE 100 MG TABLET PO SCH (20:51)
[2019-08-05] MEDS: ZOLPIDEM 5 MG TABLET PO SCH (22:35)
[2019-08-06] VITALS (83 sets, daily range): BP systolic 61–145; BP diastolic 34–103
[2019-08-06] MEDS: VANCOMYCIN FOR PO/GT/NG USE PO SCH ×5 (00:27→23:52)
[2019-08-06] MEDS: IPRATROPIUM BROMIDE 0.5 MG/2.5 ML NEBU NEB SCH ×6 (02:58→23:17)
[2019-08-06] MEDS: ALBUTEROL SULFATE 2.5 MG/ 0.5 ML NEBU NEB SCH ×6 (02:59→23:17)
[2019-08-06 05:04] LABS: BASOPHILS # (AUTO) 0.1 K/uL (0.0-8.0); BASOPHILS % (AUTO) 0.6 % (0.0-2.0); EOSINOPHILS # (AUTO) 0.3 K/uL (0.0-0.7); EOSINOPHILS % (AUTO) 2.3 % (0.0-7.0); HEMATOCRIT 27.8 % (31.2-41.9); HEMOGLOBIN 9.2 g/dL (10.9-14.3); LYMPHOCYTES # (AUTO) 1.3 K/uL (20.0-40.0); LYMPHOCYTES % (AUTO) 11.3 % (20.5-51.5); MEAN CORPUSCULAR HEMOGLOBIN 29.1 uug (24.7-32.8); MEAN CORPUSCULAR HGB CONC 33 g/dL (32.3-35.6); MEAN CORPUSCULAR VOLUME 88.1 fL (75.5-95.3); MONOCYTES # (AUTO) 0.8 K/uL (2.0-10.0); MONOCYTES % (AUTO) 7.5 % (0.0-11.0); NEUTROPHILS # (AUTO) 8.7 K/uL (1.8-8.9); NEUTROPHILS % (AUTO) 78.3 % (38.5-71.5); PLATELET COUNT (AUTO) 554 K/uL (179-408); RED BLOOD CELL COUNT(AUTO) 3.16 MIL/uL (3.63-4.92); WHITE BLOOD COUNT (AUTO) 11.1 K/uL (3.8-11.8)
[2019-08-06 05:07] LABS: CREATININE 0.6 mg/dL (0.6-1.3); MAGNESIUM 1.9 mg/dL (1.8-2.4); PHOSPHOROUS 4.1 mg/dL (2.5-4.9); POTASSIUM 3.9 mmol/L (3.5-5.1)
[2019-08-06] MEDS: PANTOPRAZOLE SODIUM 40 MG TABLET.DR PO SCH (06:07)
[2019-08-06] MEDS: METRONIDAZOLE 500 MG/NS 100ML 500 MG in PREMIXED 1 EACH IV SCH ×3 (06:08→21:38)
[2019-08-06] MEDS: BUDESONIDE 0.5 MG/2 ML NEBU NEB SCH ×2 (07:13→19:53)
--- NOTE | 2019-08-06 07:15 | NUR ---
RECEIVED REPORT FROM UNDERWRITING ACCOUNT REPRESENTATIVE NURSE, PATIENT ON AIR MATTRESS, SCD'S ON, OXYGEN 2l NASAL CANNULA, LEFT ARM IN SLING. LEVOPHED INFUSING ALONG WITH IV FLUIDS @75CC. NO DISTRESS NOTED AT THIS TIME, ALL NEEDS MET.
[2019-08-06] MEDS: NOREPINEPHRINE BITARTRATE 16 MG in IV DEXTROSE 5% 500 ML IV PRN (07:59)
[2019-08-06] MEDS: PROTEIN SUPPLEMENT (PROSTAT) 30 ML LIQUID PO SCH ×3 (08:44→17:00)
[2019-08-06] MEDS: DULOXETINE 60 MG CAPSULE.DR PO SCH (08:45)
[2019-08-06] MEDS: DIVALPROEX 250 MG TABLET.DR PO SCH ×3 (08:45→17:50)
[2019-08-06] MEDS: MIDODRINE HCL 5 MG TABLET PO SCH ×3 (08:47→17:50)
[2019-08-06] MEDS ORDERED: IV NORMAL SALINE 500 ML IV ONE (11:00)
[2019-08-06] MEDS: POTASSIUM CHLORIDE IV PRN (11:32)
[2019-08-06] MEDS: [UNRECOGNIZED DRUG - OTHER] IV PRN (11:32)
[2019-08-06] MEDS: HYDROCODONE/APAP 10-325 MG TABLET PO PRN (12:24)
--- NOTE | 2019-08-06 19:30 | NUR ---
REPORT GIVEN TO MEDICAL CENTER DIRECTOR NURSE, PATIENT ON IV FLUIDS, LEVOPHED HAS BEEN TURNED OFF WITH BP WITHIN NORMAL LIMITS. PATIENT CONTINUES TO BE ON 2l OXYGEN VIA NASAL CANNULA. SCD'S ON, AIR MATTRESS INFLATED. VITAL DRAINING. NO APPARENT DISTRESS AT THIS TIME.
--- NOTE | 2019-08-06 20:00 | NUR ---
RECEIVED PT. DROWSY, AROUSABLE FOLLOWS TO COMMAND DENIES PAIN THIS TIME.. ON O2 @ 2LNC W/ O2 SAT OF 96%. IVF 1/2NS W/ 30MEQ KCL @ 75CC/HR VIA DONNA PICC LINE. REFUSED TO BE REPOSITIONED THIS TIME.
[2019-08-06] MEDS: QUETIAPINE FUMARATE 100 MG TABLET PO SCH (21:09)
--- NOTE | 2019-08-06 22:00 | NUR ---
RESTARTED LEVOPHED DRIP @ 5MCQ/MIN, BP-73/41.
[2019-08-07] VITALS (95 sets, daily range): BP systolic 71–148; BP diastolic 29–101
[2019-08-07] MEDS: IPRATROPIUM BROMIDE 0.5 MG/2.5 ML NEBU NEB SCH ×7 (03:25→23:12)
[2019-08-07] MEDS: ALBUTEROL SULFATE 2.5 MG/ 0.5 ML NEBU NEB SCH ×7 (03:25→23:12)
[2019-08-07] MEDS: POTASSIUM CHLORIDE 20 MEQ in IV 1/2NS 1000 ML 1,000 ML IV PRN ×2 (03:53→16:53)
[2019-08-07 05:02] LABS: BASOPHILS # (AUTO) 0.1 K/uL (0.0-8.0); BASOPHILS % (AUTO) 0.5 % (0.0-2.0); EOSINOPHILS # (AUTO) 0.3 K/uL (0.0-0.7); EOSINOPHILS % (AUTO) 2.3 % (0.0-7.0); HEMATOCRIT 26.6 % (31.2-41.9); HEMOGLOBIN 8.7 g/dL (10.9-14.3); LYMPHOCYTES # (AUTO) 1.3 K/uL (20.0-40.0); LYMPHOCYTES % (AUTO) 11.5 % (20.5-51.5); MEAN CORPUSCULAR HGB CONC 33 g/dL (32.3-35.6); MONOCYTES # (AUTO) 0.8 K/uL (2.0-10.0); NEUTROPHILS # (AUTO) 9.1 K/uL (1.8-8.9); NEUTROPHILS % (AUTO) 78.7 % (38.5-71.5); PLATELET COUNT (AUTO) 474 K/uL (179-408); RED BLOOD CELL COUNT(AUTO) 2.98 MIL/uL (3.63-4.92); WHITE BLOOD COUNT (AUTO) 11.5 K/uL (3.8-11.8)
--- NOTE | 2019-08-07 05:30 | NUR ---
AM CARE DONE.. REPOSITIONED W/ HOB ELEVATED. REFUSED ORAL CARE.
[2019-08-07 05:33] LABS: CREATININE 0.6 mg/dL (0.6-1.3); MAGNESIUM 1.8 mg/dL (1.8-2.4); PHOSPHOROUS 4.3 mg/dL (2.5-4.9)
[2019-08-07] MEDS: VANCOMYCIN FOR PO/GT/NG USE PO SCH ×3 (05:43→18:07)
[2019-08-07] MEDS: METRONIDAZOLE 500 MG/NS 100ML 500 MG in PREMIXED 1 EACH IV SCH ×3 (05:43→21:06)
--- NOTE | 2019-08-07 05:45 | NUR ---
HAD LARGE SOFT BROWNISH STOOL, CLEANED & REPOSITIONED.
[2019-08-07 06:19] LABS: EOSINOPHILS % (MANUAL) 2 % (0-8); LYMPHOCYTES % (MANUAL) 11 % (20-40); METAMYELOCYTES % 1 % (0-1); MONOCYTES % (MANUAL) 10 % (2-10); NEUTROPHILS % (MANUAL) 76 % (42-75)
[2019-08-07] MEDS: PANTOPRAZOLE SODIUM 40 MG TABLET.DR PO SCH (06:25)
[2019-08-07] MEDS: BUDESONIDE 0.5 MG/2 ML NEBU NEB SCH ×3 (07:31→19:51)
[2019-08-07] MEDS: PROTEIN SUPPLEMENT (PROSTAT) 30 ML LIQUID PO SCH ×3 (08:00→17:00)
[2019-08-07] MEDS: NOREPINEPHRINE BITARTRATE 16 MG in IV DEXTROSE 5% 500 ML IV PRN (08:26)
[2019-08-07] MEDS: DULOXETINE 60 MG CAPSULE.DR PO SCH (09:25)
[2019-08-07] MEDS: DIVALPROEX 250 MG TABLET.DR PO SCH ×3 (09:26→18:07)
[2019-08-07] MEDS: MIDODRINE HCL 5 MG TABLET PO SCH ×3 (09:29→20:56)
[2019-08-07] MEDS ORDERED: MIDODRINE HCL 5 MG TABLET PO SCH (17:00)
[2019-08-07] MEDS: ZOLPIDEM 5 MG TABLET PO SCH (20:57)
[2019-08-07] MEDS: HYDROCODONE/APAP 10-325 MG TABLET PO PRN (20:57)
[2019-08-07] MEDS: QUETIAPINE FUMARATE 100 MG TABLET PO SCH (20:58)
[2019-08-08] VITALS (79 sets, daily range): BP systolic 78–176; BP diastolic 46–96
[2019-08-08] MEDS: VANCOMYCIN FOR PO/GT/NG USE PO SCH ×5 (00:41→23:59)
[2019-08-08] MEDS: IPRATROPIUM BROMIDE 0.5 MG/2.5 ML NEBU NEB SCH ×6 (02:59→22:50)
[2019-08-08] MEDS: ALBUTEROL SULFATE 2.5 MG/ 0.5 ML NEBU NEB SCH ×6 (02:59→22:50)
[2019-08-08 05:14] LABS: BASOPHILS # (AUTO) 0.1 K/uL (0.0-8.0); BASOPHILS % (AUTO) 0.7 % (0.0-2.0); EOSINOPHILS # (AUTO) 0.3 K/uL (0.0-0.7); EOSINOPHILS % (AUTO) 2.7 % (0.0-7.0); HEMATOCRIT 27.4 % (31.2-41.9); LYMPHOCYTES # (AUTO) 1.2 K/uL (20.0-40.0); LYMPHOCYTES % (AUTO) 10.6 % (20.5-51.5); MEAN CORPUSCULAR HEMOGLOBIN 29.1 uug (24.7-32.8); MEAN CORPUSCULAR HGB CONC 33 g/dL (32.3-35.6); MEAN CORPUSCULAR VOLUME 88.7 fL (75.5-95.3); MONOCYTES # (AUTO) 0.9 K/uL (2.0-10.0); MONOCYTES % (AUTO) 7.7 % (0.0-11.0); NEUTROPHILS # (AUTO) 9.2 K/uL (1.8-8.9); NEUTROPHILS % (AUTO) 78.3 % (38.5-71.5); PLATELET COUNT (AUTO) 455 K/uL (179-408); RED BLOOD CELL COUNT(AUTO) 3.09 MIL/uL (3.63-4.92); WHITE BLOOD COUNT (AUTO) 11.8 K/uL (3.8-11.8)
[2019-08-08 05:33] LABS: CREATININE 0.8 mg/dL (0.6-1.3); MAGNESIUM 1.5 mg/dL (1.8-2.4); PHOSPHOROUS 3.8 mg/dL (2.5-4.9); POTASSIUM 3.8 mmol/L (3.5-5.1)
[2019-08-08] MEDS: POTASSIUM CHLORIDE 20 MEQ in IV 1/2NS 1000 ML 1,000 ML IV PRN ×3 (05:37→21:44)
[2019-08-08] MEDS: METRONIDAZOLE 500 MG/NS 100ML 500 MG in PREMIXED 1 EACH IV SCH ×3 (05:55→21:56)
[2019-08-08] MEDS: BUDESONIDE 0.5 MG/2 ML NEBU NEB SCH ×2 (07:07→19:17)
[2019-08-08] MEDS: PROTEIN SUPPLEMENT (PROSTAT) 30 ML LIQUID PO SCH ×3 (08:00→17:00)
[2019-08-08] MEDS: MIDODRINE HCL 5 MG TABLET PO SCH ×3 (08:37→21:45)
[2019-08-08] MEDS: HYDROCODONE/APAP 10-325 MG TABLET PO PRN (08:38)
[2019-08-08] MEDS: PANTOPRAZOLE SODIUM 40 MG TABLET.DR PO SCH (08:39)
[2019-08-08] MEDS: DULOXETINE 60 MG CAPSULE.DR PO SCH (08:39)
[2019-08-08] MEDS: Z GUARD REMEDY PASTE 57 GM TUBE TOP PRN (08:39)
[2019-08-08] MEDS: DIVALPROEX 250 MG TABLET.DR PO SCH ×3 (08:39→18:23)
[2019-08-08] MEDS: NOREPINEPHRINE BITARTRATE 16 MG in IV DEXTROSE 5% 500 ML IV PRN (08:41)
[2019-08-08] MEDS: MAGNESIUM SULFATE/D5W 100 ML IV SCH ×4 (10:46→16:44)
--- NOTE | 2019-08-08 20:05 | NUR ---
RECEIVED PT. AWAKE & LETHARGIC, FOLLOWS TO COMMAND. ON IVF OF 1/2NS W/ 20MEQ KCL @ 75CC/HR VIA PICC ON DONNA. ON O2 @ 2LNC W/ O2 SAT OF 96%.REPOSITIONED ON HER SIDE W/ HOB ELEVATED. NOT IN ANY DISTRESS.
--- NOTE | 2019-08-08 23:00 | NUR ---
REFUSED HS CARE. REPOSITIONED W/ HOB ELEVATED.
[2019-08-09] VITALS (10 sets, daily range): BP systolic 109–137; BP diastolic 54–70
[2019-08-09] MEDS: HYDROCODONE/APAP 10-325 MG TABLET PO PRN (01:34)
--- NOTE | 2019-08-09 01:34 | NUR ---
C/O PAIN ON HER L ARM MEDICATED W/ NORCO 10/345 MG PO. Addendum: 08/09/19 at 0152 by CASE DARLING RN NORCO 10/325 MG.
[2019-08-09] MEDS: ALBUTEROL SULFATE 2.5 MG/ 0.5 ML NEBU NEB SCH ×6 (02:31→23:30)
[2019-08-09] MEDS: IPRATROPIUM BROMIDE 0.5 MG/2.5 ML NEBU NEB SCH ×6 (02:31→23:30)
--- NOTE | 2019-08-09 04:00 | NUR ---
AM CARE DONE. REFUSED ORAL CARE.
[2019-08-09 05:00] LABS: BASOPHILS # (AUTO) 0.1 K/uL (0.0-8.0); BASOPHILS % (AUTO) 0.8 % (0.0-2.0); EOSINOPHILS # (AUTO) 0.3 K/uL (0.0-0.7); EOSINOPHILS % (AUTO) 2.3 % (0.0-7.0); HEMOGLOBIN 7.9 g/dL (10.9-14.3); LYMPHOCYTES # (AUTO) 0.8 K/uL (20.0-40.0); LYMPHOCYTES % (AUTO) 7.5 % (20.5-51.5); MEAN CORPUSCULAR HGB CONC 33 g/dL (32.3-35.6); MEAN CORPUSCULAR VOLUME 87.7 fL (75.5-95.3); MONOCYTES # (AUTO) 0.7 K/uL (2.0-10.0); MONOCYTES % (AUTO) 5.9 % (0.0-11.0); NEUTROPHILS # (AUTO) 9.2 K/uL (1.8-8.9); NEUTROPHILS % (AUTO) 83.5 % (38.5-71.5); PLATELET COUNT (AUTO) 382 K/uL (179-408); RED BLOOD CELL COUNT(AUTO) 2.73 MIL/uL (3.63-4.92)
[2019-08-09 05:21] LABS: CARBON DIOXIDE 34 mmol/L (21-32); CHLORIDE 105 mmol/L (98-107); CREATININE 0.5 mg/dL (0.6-1.3); GLUCOSE 88 mg/dL (74-106); MAGNESIUM 2.3 mg/dL (1.8-2.4); PHOSPHOROUS 3.9 mg/dL (2.5-4.9); POTASSIUM 4.3 mmol/L (3.5-5.1); UREA NITROGEN, BLOOD 15 mg/dL (7-18)
[2019-08-09] MEDS: VANCOMYCIN FOR PO/GT/NG USE PO SCH ×3 (05:42→17:32)
[2019-08-09] MEDS: METRONIDAZOLE 500 MG/NS 100ML 500 MG in PREMIXED 1 EACH IV SCH ×3 (05:42→21:13)
--- NOTE | 2019-08-09 06:00 | NUR ---
REPOSITIONED ON HER SIDE AFTER CXR.
[2019-08-09] MEDS: PANTOPRAZOLE SODIUM 40 MG TABLET.DR PO SCH (06:27)
[2019-08-09] MEDS: BUDESONIDE 0.5 MG/2 ML NEBU NEB SCH ×2 (07:29→19:30)
[2019-08-09] MEDS: DULOXETINE 60 MG CAPSULE.DR PO SCH (08:23)
[2019-08-09] MEDS: DIVALPROEX 250 MG TABLET.DR PO SCH ×3 (08:23→17:33)
[2019-08-09] MEDS: MIDODRINE HCL 5 MG TABLET PO SCH ×3 (08:24→21:14)
[2019-08-09] MEDS: PROTEIN SUPPLEMENT (PROSTAT) 30 ML LIQUID PO SCH ×3 (08:24→17:00)
[2019-08-09 09:51] LABS: ALANINE AMINOTRANSFERASE 19 U/L (14-59); ALKALINE PHOSPHATASE 129 U/L (50-136); ASPARTATE AMINOTRANSFERASE 24 U/L (15-37); BILIRUBIN,DIRECT < 0.1 mg/dL (0.0-0.2); BILIRUBIN,TOTAL 0.8 mg/dL (0.2-1.0); TOTAL PROTEIN, SERUM 5.5 g/dL (6.4-8.2)
--- NOTE | 2019-08-09 09:54 | NUR ---
Physical therapy here to see pt.
[2019-08-09] MEDS: POTASSIUM CHLORIDE 20 MEQ in IV 1/2NS 1000 ML 1,000 ML IV PRN (10:04)
--- NOTE | 2019-08-09 11:28 | NUR ---
Spoke with Dr. Bolaños on the telephone. Full report given. okay to downgrade to telemetry status.
--- NOTE | 2019-08-09 11:36 | NUR ---
Full telephone SBAR report given to LANIE Santiago.
--- NOTE | 2019-08-09 11:50 | NUR ---
Pt transferred to [facility] with third floor repairer welding systems and equipment. Pt stable and nad noted upon transfer. VSS wnl.
--- NOTE | 2019-08-09 11:55 | NUR ---
PATIENT RECEIVED FROM THE CCU UNIT BY BED AWAKE ALERT AND ORIENTED BUT FORGETFUL ON O2 AT 2L/M BY NASAL CANULA WITH NO SOB AT THIS TIME LEFT ARM WITH SLING WITH DRY DRESSING RIGHT ARM WITH PICC LINE INTACT WITH NS PLUS 20 MEQ AT 75ML/H WITH NO S/S OF INFILTERATION ON SITE.SHE IS ON FIRST STEP STANISLAW FOR COMFORT.VITAL CATH WITH GRAVITY DRAINAGE NO HEMATURIA REMAIN ON ISOLATION FOR C DIFF ORDERED NO DIARRHEA EPISODES AT THIS TIME MADE COMFORTABLE WILL CONTINUE TO OBSERVE.
--- NOTE | 2019-08-09 17:11 | NUR ---
COMPLIANT WITH MEDICATIONS APPETITE IS JUST FAIR TOTALLY DEPENDENT FOR ALL ADL MADE COMFORTABLE WILL CONTINUE TO OBSERVE.
--- NOTE | 2019-08-09 20:05 | NUR ---
Pt refused HHN tx. LANIE zimmer.
[2019-08-09] MEDS: ACETAMINOPHEN 325 MG TABLET PO PRN (21:14)
[2019-08-09] MEDS: ONDANSETRON 4 MG/2 ML VIAL IV PRN (21:15)
--- NOTE | 2019-08-09 23:31 | NUR ---
Pt refused HHN tx. LANIE zimmer.
[2019-08-10 00:05] VITALS: BP 121/63
[2019-08-10] MEDS: POTASSIUM CHLORIDE 20 MEQ in IV 1/2NS 1000 ML 1,000 ML IV PRN ×2 (01:16→16:25)
[2019-08-10] MEDS: VANCOMYCIN FOR PO/GT/NG USE PO SCH ×4 (01:16→18:26)
[2019-08-10] MEDS: ALBUTEROL SULFATE 2.5 MG/ 0.5 ML NEBU NEB SCH ×6 (02:59→23:45)
[2019-08-10] MEDS: IPRATROPIUM BROMIDE 0.5 MG/2.5 ML NEBU NEB SCH ×6 (02:59→23:41)
--- NOTE | 2019-08-10 03:00 | NUR ---
Pt refused HHN tx. LANIE zimmer.
[2019-08-10 04:09] VITALS: BP 126/62
[2019-08-10] MEDS: METRONIDAZOLE 500 MG/NS 100ML 500 MG in PREMIXED 1 EACH IV SCH (05:11)
[2019-08-10] MEDS: PANTOPRAZOLE SODIUM 40 MG TABLET.DR PO SCH (05:14)
[2019-08-10] MEDS: MIDODRINE HCL 5 MG TABLET PO SCH ×3 (05:14→21:32)
--- NOTE | 2019-08-10 05:16 | NUR ---
Pt slept intermittently through the night. Refuses breathing tx, risks and benfits explained but refused 3x. Pt with episodes of bipolar behavior. O2 kept on at 2LPM, with no signs of shortness of breath, wheezing or any cardio pulmonary distress/discomfort. Fluids running as ordered, no signs of fluid overload.BP remained above 100SBp throughout shift. All due medications given, tolerated well. protonix given at this time with rest of meds, as per patients request. 1x BM during shift, soft consistency. Good skin care provided. NSR on tele -. Will continue to monitor and endorse accordingly.
[2019-08-10] MEDS: PROTEIN SUPPLEMENT (PROSTAT) 30 ML LIQUID PO SCH ×3 (08:00→16:52)
[2019-08-10] MEDS: BUDESONIDE 0.5 MG/2 ML NEBU NEB SCH ×2 (08:25→19:30)
[2019-08-10] MEDS: DIVALPROEX 250 MG TABLET.DR PO SCH ×3 (10:04→16:24)
[2019-08-10] MEDS: DULOXETINE 60 MG CAPSULE.DR PO SCH (10:04)
[2019-08-10] MEDS: ACETAMINOPHEN 325 MG TABLET PO PRN ×2 (10:08→16:24)
[2019-08-10 12:00] VITALS: BP 139/68
[2019-08-10 16:10] VITALS: BP 138/60
--- NOTE | 2019-08-10 18:20 | NUR ---
Pt received, assessed, no acute distress. VSS, Pt refused last breathing Tx, Pt teaching provided, titrated to 1L by RT tolerated well. Pt compliant with routine medication administration. Tylenol administered for pain 11/22. Sánchez catheter intact, draining clear yellow urine, care provided. Diarrhea x1. Pt clean and dry on air mattress with SCD pumps in place. Fluids running as ordered. Pt seen by MD. Bed locked, side rails up x2, heels offloading. Left shoulder dressing intact, sling in place. All comfort and safety measures implemented at this time. Call light within reach. Will continue to monitor.
--- NOTE | 2019-08-10 19:30 | NUR ---
Received patient awake and alert in bed, no signs of acute distress noted. No complaints of discomfort or SOB at this time. IVF running on the right upper arm. SCD pump is intact, Sánchez is intact draining well, urine is clear/yellow. Patient on air mattress. Safety measures initiated. Bed is low and locked, call light within reach. Will continue to monitor.
[2019-08-10 21:20] VITALS: BP 127/67
[2019-08-11 01:04] VITALS: BP 154/78
--- NOTE | 2019-08-11 01:06 | NUR ---
Patient refused Vancomycin PO. Explained risk and benefits. Offered multiple times, but patient started to become agitated. Says it tastes so bad, tried to offer juices or snacks to take with medications, but patient keeps refusing and asked to be left alone. Changed and repositioned patient, patient had another soft BM. Sling to left arm intact, dressing intact, no bleeding noted. will continue to monitor.
[2019-08-11] MEDS: IPRATROPIUM BROMIDE 0.5 MG/2.5 ML NEBU NEB SCH ×3 (03:01→11:14)
[2019-08-11] MEDS: ALBUTEROL SULFATE 2.5 MG/ 0.5 ML NEBU NEB SCH ×3 (03:01→11:14)
[2019-08-11 04:55] VITALS: BP 116/87
[2019-08-11] MEDS ORDERED: MIDODRINE HCL 5 MG TABLET ONE (06:04)
[2019-08-11] MEDS: POTASSIUM CHLORIDE 20 MEQ in IV 1/2NS 1000 ML 1,000 ML IV PRN ×2 (06:14→21:31)
[2019-08-11] MEDS: MIDODRINE HCL 5 MG TABLET PO SCH ×3 (06:15→21:24)
[2019-08-11] MEDS: PANTOPRAZOLE SODIUM 40 MG TABLET.DR PO SCH (06:15)
[2019-08-11] MEDS: VANCOMYCIN FOR PO/GT/NG USE PO SCH ×4 (06:19→17:25)
--- NOTE | 2019-08-11 06:50 | NUR ---
Patients vitals have been WNL throughout shift. Patient took morning medications. Patient refused labs, explained the risks and patient still refused saying "everything is fine with me" flight operation coordinator says he will try again later. Cleaned and repositioned. ST on the monitor 99-110. Safety measures given. Will endorse to next shift.
[2019-08-11] MEDS: BUDESONIDE 0.5 MG/2 ML NEBU NEB SCH ×2 (07:30→19:30)
--- NOTE | 2019-08-11 07:30 | NUR ---
Sleeping, appears comfortable. O2 at 1L/NC, not in distress. IVF infusing
[2019-08-11] MEDS: PROTEIN SUPPLEMENT (PROSTAT) 30 ML LIQUID PO SCH ×4 (08:00→17:00)
[2019-08-11] MEDS: DULOXETINE 60 MG CAPSULE.DR PO SCH (10:07)
[2019-08-11] MEDS: DIVALPROEX 250 MG TABLET.DR PO SCH ×3 (10:07→17:25)
[2019-08-11] MEDS: ACIDOPHILUS/BULGARICUS CHEW TAB PO SCH ×2 (10:07→21:23)
--- NOTE | 2019-08-11 11:00 | NUR ---
PT at bedside, encouraged to participate
[2019-08-11 11:42] LABS: *BILIRUBIN,URIN NEGATIVE (NEGATIVE); *BLOOD, URINE NEGATIVE (NEGATIVE); *CLARITY,URINE CLEAR (CLEAR); *COLOR,URINE YELLOW (YELLOW); *KETONES,URINE NEGATIVE (NEGATIVE); *UROBILINOGEN,URINE 0.2 E.U./dl (NORMAL); LEUKOCYTE ESTERASE ,URINE TRACE (NEGATIVE); NITRITE, URINE NEGATIVE (NEGATIVE); PH,URINE 7.5 (5.0-8.0); UGLUCOSE NEGATIVE (NEGATIVE)
[2019-08-11 11:50] VITALS: BP 125/78
[2019-08-11 11:52] LABS: BACTERIA,URINE FEW /HPF (NONE SEEN); RBC,URINE NONE SEEN /HPF (0-3); SQUAMOUS EPITHELIAL CELL,UR FEW /HPF (NONE SEEN); WBC,URINE 0-3 /HPF (0-3)
[2019-08-11] MEDS ORDERED: METOPROLOL TARTRATE 25 MG TABLET PO ONE (15:30)
[2019-08-11 16:10] VITALS: BP 129/97
--- NOTE | 2019-08-11 16:45 | NUR ---
Weaned off O2, with O2 sat of 95%.
--- NOTE | 2019-08-11 17:52 | NUR ---
Refused to eat dinner, did not like the chicken. Not in distress
--- NOTE | 2019-08-11 19:30 | NUR ---
Received patient awake and alert, patient asking for pain medication, only has Tylenol ordered. Will follow up with Dr. Bolaños. IVF running on the right upper PICC line. No signs of acute distress noted. Vitals WNL. Sánchez intact draining well. Left arm in sling, dressing is intact. Patient on air mattress. Will turn and reposition. Safety measures initiated. Bed is low and locked, call light within reach. Will continue to monitor.
[2019-08-11] MEDS ORDERED: HYDROCODONE/APAP 5-325MG TABLET PO PRN (19:45)
[2019-08-11 20:30] VITALS: BP 136/83
--- NOTE | 2019-08-11 23:59 | NUR ---
Was able to get PRN pain medication order, administered and patient has been resting comfortably. Patient is refusing to take Vancomycin PO. Tried encouraging and explaining to patient the risks and benefits 3 times, but she is still refusing. She says she wants to only take the morning dose. She does not want to be bothered right now, she wants to just rest.
[2019-08-12 00:15] VITALS: BP 143/83
[2019-08-12] MEDS: VANCOMYCIN FOR PO/GT/NG USE PO SCH ×4 (00:46→12:16)
--- NOTE | 2019-08-12 00:48 | NUR ---
Patient changed her mind, administered Vancomycin PO.
[2019-08-12] MEDS: ACETAMINOPHEN 325 MG TABLET PO PRN (01:01)
[2019-08-12] MEDS: ONDANSETRON 4 MG/2 ML VIAL IV PRN (01:04)
[2019-08-12 04:48] VITALS: BP 138/88
[2019-08-12] MEDS: MIDODRINE HCL 5 MG TABLET PO SCH (05:08)
[2019-08-12] MEDS: PANTOPRAZOLE SODIUM 40 MG TABLET.DR PO SCH (06:28)
[2019-08-12] MEDS: BUDESONIDE 0.5 MG/2 ML NEBU NEB SCH (07:54)
--- NOTE | 2019-08-12 08:00 | NUR ---
RECEIVED PT RESTING IN BED. NO ACUTE DISTRESS OR SOB NOTED. PT ON RA. PT ON CONTACT ISOLATION FOR CDIFF. VITAL CATHETER FLOWING. IVF RUNNING. BED LOCKED IN LOW POSITION. PICC LINE IN DONNA. TELE MONITORING SINUS RHYTHM. WILL CONTINUE TO MONITOR FOR SAFETY AND COMFORT.
[2019-08-12] MEDS: DULOXETINE 60 MG CAPSULE.DR PO SCH (08:46)
[2019-08-12] MEDS: DIVALPROEX 250 MG TABLET.DR PO SCH ×2 (08:46→12:16)
[2019-08-12] MEDS: ACIDOPHILUS/BULGARICUS CHEW TAB PO SCH (08:46)
[2019-08-12 09:28] LABS: BASOPHILS # (AUTO) 0.1 K/uL (0.0-8.0); BASOPHILS % (AUTO) 0.9 % (0.0-2.0); HEMATOCRIT 30.5 % (31.2-41.9); HEMOGLOBIN 10.1 g/dL (10.9-14.3); LYMPHOCYTES # (AUTO) 0.8 K/uL (20.0-40.0); LYMPHOCYTES % (AUTO) 6.5 % (20.5-51.5); MEAN CORPUSCULAR HEMOGLOBIN 28.9 uug (24.7-32.8); MEAN CORPUSCULAR HGB CONC 33 g/dL (32.3-35.6); MEAN CORPUSCULAR VOLUME 87.2 fL (75.5-95.3); MONOCYTES # (AUTO) 0.6 K/uL (2.0-10.0); MONOCYTES % (AUTO) 4.7 % (0.0-11.0); NEUTROPHILS # (AUTO) 10.9 K/uL (1.8-8.9); NEUTROPHILS % (AUTO) 87.9 % (38.5-71.5); PLATELET COUNT (AUTO) 383 K/uL (179-408); RED BLOOD CELL COUNT(AUTO) 3.49 MIL/uL (3.63-4.92); WHITE BLOOD COUNT (AUTO) 12.4 K/uL (3.8-11.8)
[2019-08-12 09:41] LABS: CREATININE 0.7 mg/dL (0.6-1.3); MAGNESIUM 1.3 mg/dL (1.8-2.4); PHOSPHOROUS 3.5 mg/dL (2.5-4.9); POTASSIUM 3.3 mmol/L (3.5-5.1)
[2019-08-12] MEDS ORDERED: POTASSIUM CHLORIDE 20 MEQ TAB.PRT.SR PO ONE (11:30)
[2019-08-12] MEDS: MAGNESIUM SULFATE/D5W 100 ML IV SCH ×2 (11:59→13:11)
--- NOTE | 2019-08-12 12:00 | NUR ---
DISCHARGE ORDER RECEIVED.
[2019-08-12 12:13] VITALS: BP 146/74
--- NOTE | 2019-08-12 12:45 | NUR ---
VITAL CATHETER REMOVED WITH 400 CC URINE IN BAG.
[2019-08-12] MEDS: PROTEIN SUPPLEMENT (PROSTAT) 30 ML LIQUID PO SCH (13:04)
[2019-08-12] MEDS ORDERED: MIDODRINE HCL 5 MG TABLET PO SCH (14:00)
[2019-08-12 16:09] VITALS: BP 111/46
--- NOTE | 2019-08-12 17:56 | NUR ---
PT VOIDED. PICC LINE REMOVED INTACT. NO BLEEDING ON SITE. NO ACUTE DISTRESS OR SOB NOTED. DISCHARGE INSTRUCTIONS PRINTED. BELONGINGS AT BEDSIDE SIGNED AND COUNTED. PT'S OWN MEDS RECOVERED FROM PHARMACY. PT ALERT AND ORIENTED X3. TELE BOX REMOVED.
--- NOTE | 2019-08-12 19:30 | NUR ---
PT DISCHARGED. BELONGINGS RETURNED. DISCHARGE INSTRUCTIONS AND POLST GIVEN TO AMBULANCE TEAM. NO ACUTE DISTRESS OR SOB NOTED.
== END 2019-08-12 19:35 | disposition home health service (06) | DRG 853 ==
LOC: ER 14:28 → TELE-TD3 19:12 → TELE3 07-10 00:03 → CCU 07-10 10:15 → TELE3 07-14 07:39 → CCU 07-21 15:46 → TELE3 07-31 07:00 → CCU 08-01 02:58 → TELE3 08-09 11:56
PROVIDERS: ADMIT Student in an Organized Health Care Education/Training Program; ATTEND Student in an Organized Health Care Education/Training Program
PROC: 05H933Z Insertion of Infusion Device into Right Brachial Vein, Percutaneous Approach (ICD-10-PCS; 2019-07-09)
PROC: 5A09357 Assistance with Respiratory Ventilation, Less than 24 Consecutive Hours, Continuous Positive Airway Pressure (ICD-10-PCS; principal; 2019-07-10)
PROC: 0PSG04Z Reposition Left Humeral Shaft with Internal Fixation Device, Open Approach (ICD-10-PCS; 2019-07-17)
PROC: 02HV33Z Insertion of Infusion Device into Superior Vena Cava, Percutaneous Approach (ICD-10-PCS; 2019-07-21)
PROC: B548ZZA Ultrasonography of Superior Vena Cava, Guidance (ICD-10-PCS; 2019-07-21)
PROC: 30243N1 Transfusion of Nonautologous Red Blood Cells into Central Vein, Percutaneous Approach (ICD-10-PCS; 2019-07-22)
DX: A41.1 Sepsis due to other specified staphylococcus (principal); J96.01 Acute respiratory failure with hypoxia; J96.02 Acute respiratory failure with hypercapnia; N17.0 Acute kidney failure with tubular necrosis; I21.A1 Myocardial infarction type 2; E43 Unspecified severe protein-calorie malnutrition; R65.21 Severe sepsis with septic shock; J69.0 Pneumonitis due to inhalation of food and vomit; I50.31 Acute diastolic (congestive) heart failure; G92 Toxic encephalopathy; J44.1 Chronic obstructive pulmonary disease with (acute) exacerbation; S42.292A Other displaced fracture of upper end of left humerus, initial encounter for closed fracture; J44.0 Chronic obstructive pulmonary disease with (acute) lower respiratory infection; A04.72 Enterocolitis due to Clostridium difficile, not specified as recurrent; K56.600 Partial intestinal obstruction, unspecified as to cause; J98.11 Atelectasis; R55 Syncope and collapse; W19.XXXA Unspecified fall, initial encounter; Y92.099 Unspecified place in other non-institutional residence as the place of occurrence of the external cause; F31.9 Bipolar disorder, unspecified; Z95.5 Presence of coronary angioplasty implant and graft; Z79.02 Long term (current) use of antithrombotics/antiplatelets; G40.909 Epilepsy, unspecified, not intractable, without status epilepticus; K21.9 Gastro-esophageal reflux disease without esophagitis; E87.6 Hypokalemia; I25.2 Old myocardial infarction; M19.90 Unspecified osteoarthritis, unspecified site; I11.0 Hypertensive heart disease with heart failure; I73.9 Peripheral vascular disease, unspecified; I70.0 Atherosclerosis of aorta; I25.10 Atherosclerotic heart disease of native coronary artery without angina pectoris; I67.2 Cerebral atherosclerosis; M48.10 Ankylosing hyperostosis [Forestier], site unspecified; T38.0X5A Adverse effect of glucocorticoids and synthetic analogues, initial encounter; Z79.899 Other long term (current) drug therapy; Z86.73 Personal history of transient ischemic attack (TIA), and cerebral infarction without residual deficits; Z87.891 Personal history of nicotine dependence; Z91.19 Patient's noncompliance with other medical treatment and regimen; Z91.14 Patient's other noncompliance with medication regimen; M48.02 Spinal stenosis, cervical region; E83.42 Hypomagnesemia; E83.39 Other disorders of phosphorus metabolism; D69.6 Thrombocytopenia, unspecified; E27.8 Other specified disorders of adrenal gland; E86.0 Dehydration; D64.9 Anemia, unspecified
CPT/HCPCS: 36415; 36569; 36600; 70030-TC; 70450; 71045; 72125; 73030; 73060; 73080; 74250; 80164; 83550; 83605; 83735; 83970; 84100; 84155; 84156; 84165; 84300; 84443; 85025; 85730; 86625; 86803; 86850; 86900; 86901; 86920; 87040; 87046; 87086; 87806; 93005; 93307; 94640; 94660; 94664; A4649; A4663; C9113; G0378; J0690; J0696; J1170; J1200; J1940; J2060; J2185; J2248; J2250; J2270; J2370; J2405; J2916; J2920; J2930; J3010; J3370; J3475; J3480; J3490; J3590; J7030; J7040; J7050; J7060; P9016-BL; P9021; Q9963; Q9967